=== PATIENT | female | born 1940 | race Caucasian/White ===

== ENCOUNTER → 2017-11-16 08:56 | Outpatient (CLI) | payer MEDICARE, OTHER, SELFPAY ==
[2017-11-16 10:14] LABS: Microalbumin,Random Urine 23.5 mg/L (NO RANGE EST.); Microalbumin:Creatinine Ratio 28.3 mg/g CRE (<30 mg/g CRE)
[2017-11-16 10:25] LABS: Hemoglobin A1c 6.3 % (4.2-6.3)
[2017-11-16 10:31] LABS: AST(SGOT) 13 U/L (15-37); Alanine Aminotransfer ALT/SGPT 19 U/L (13-56); Albumin, Serum 3.5 g/dL (3.2-5.0); Alkaline Phosphatase 82 U/L (45-117); Anion Gap 8 (5-15); BUN 23 mg/dL (7-18); BUN/Creat Ratio 23.4 RATIO (10-20); Bilirubin, Direct < 0.05 mg/dL (0.00-0.30); Calcium,Total 8.8 mg/dL (8.5-10.1); Chloride 108 mmol/L (98-107); Cholesterol 163 mg/dL (200); Creatinine, Serum 0.98 mg/dL (0.55-1.02); EST Glomerular Filtration Rate 59 mL/min (>60); Est Glom Filt Rate - Afr Amer 71 mL/min (>60); Globulin 3.5 g/dL (2.2-4.2); Glucose 114 mg/dL (74-106); High Density Lipoprotein 37 mg/dL; Potassium 4.3 mmol/L (3.5-5.1); Sodium Level 141 mmol/L (136-145); Triglycerides 174 mg/dL; Very Low Density Lipoprotein 35 mg/dL (5-40)
== END ==
PROVIDERS: Family Provider Family Medicine; PCP Family Medicine; Visit Provider Family Medicine
DX: E11.9 Type 2 diabetes mellitus without complications (principal); I10 Essential (primary) hypertension
CPT/HCPCS: 36415; 80048; 80061; 80076; 82043; 82570; 83036

== ENCOUNTER → 2018-03-28 11:50 | Outpatient (CLI) | payer MEDICARE, OTHER, SELFPAY ==
[2018-03-28 14:33] LABS: Anion Gap 6 (5-15); BUN 22 mg/dL (7-18); BUN/Creat Ratio 20.4 RATIO (10-20); Calcium,Total 9.1 mg/dL (8.5-10.1); Chloride 106 mmol/L (98-107); Creatinine, Serum 1.08 mg/dL (0.55-1.02); EST Glomerular Filtration Rate 52 mL/min (>60); Est Glom Filt Rate - Afr Amer 63 mL/min (>60); Glucose 85 mg/dL (74-106); Potassium 4.6 mmol/L (3.5-5.1); Sodium Level 140 mmol/L (136-145)
== END ==
PROVIDERS: Family Provider Family Medicine; PCP Family Medicine; Visit Provider Family Medicine
DX: E11.9 Type 2 diabetes mellitus without complications (principal)
CPT/HCPCS: 36415; 80048

== ENCOUNTER → 2018-03-29 11:28 | Outpatient (CLI) | payer MEDICARE, OTHER, SELFPAY ==
--- NOTE | 2018-03-29 11:35 | BI_ITS ---
MAMMOGRAPHY - BILATERAL SCREENING REASON FOR EXAM: Female, 78 years old. Routine annual screening examination. PERTINENT HISTORY: Non-contributory. TECHNIQUE: Digital bilateral breast ric (3D mammographic acquisition) in the CC and MLO projections. 2-D mediolateral oblique (MLO) and craniocaudad (CC) views of both breasts were obtained. CAD: Full Field Digital Mammography with Computer Added Detection was performed. COMPARISON: Comparison is made with prior examination dated March 27, 2017 and March 24, 2016. FINDINGS: Breast Composition: There are scattered areas of fibroglandular density. There are no dominant masses or suspicious calcifications. Stable benign-appearing bilateral axillary lymph nodes. No other significant abnormalities are identified. There has been no significant change since the prior study. BI/SCREENING MAMM (CAD), BILAT IMPRESSION: Stable bilateral screening mammogram. Yearly follow-up mammogram recommended. (A) ASSESSMENT CATEGORY: BIRADS Category 2: Benign. A letter regarding these results will be sent to the patient by the facility within 30 days. Approximately 10% of breast cancers are not detected by mammography. A normal mammogram should not delay biopsy of a clinically suspicious abnormality. [id number] Electronically Signed: Cortes Crenshaw MD at 13:01 EDT Tel [phone], Service support ,
== END ==
PROVIDERS: Family Provider Family Medicine; PCP Family Medicine; Referring Provider Family Medicine; Visit Provider Family Medicine
DX: Z12.31 Encounter for screening mammogram for malignant neoplasm of breast (principal)
CPT/HCPCS: 77063; 77067

== ENCOUNTER → 2018-11-05 | Outpatient (CLI) | payer MEDICARE, OTHER, SELFPAY ==
[2017-05-09 02:05] VITALS: BMI 34.7
[2018-11-05 15:46] LABS: AST(SGOT) 17 U/L (15-37); Alanine Aminotransfer ALT/SGPT 22 U/L (13-56); Albumin, Serum 4.1 g/dL (3.2-5.0); Alkaline Phosphatase 85 U/L (45-117); Anion Gap 8 (5-15); BUN 24 mg/dL (7-18); Bilirubin, Direct 0.15 mg/dL (0.00-0.30); Calcium,Total 9.1 mg/dL (8.5-10.1); Chloride 105 mmol/L (98-107); Cholesterol 175 mg/dL (200); EST Glomerular Filtration Rate 57 mL/min (>60); Est Glom Filt Rate - Afr Amer 69 mL/min (>60); Globulin 2.8 g/dL (2.2-4.2); Glucose 84 mg/dL (74-106); High Density Lipoprotein 47 mg/dL; Potassium 4.8 mmol/L (3.5-5.1); Protein, Total 6.9 g/dL (6.4-8.2); Sodium Level 141 mmol/L (136-145); Triglycerides 190 mg/dL; Very Low Density Lipoprotein 38 mg/dL (5-40)
== END | disposition home or self-care (01) ==
LOC: MFPLAB 11:26
PROVIDERS: Family Provider Family Medicine; PCP Family Medicine; Referring Provider Family Medicine; Visit Provider Family Medicine
DX: E11.9 Type 2 diabetes mellitus without complications (principal)
CPT/HCPCS: 36415; 80048; 80061; 80076

== ENCOUNTER 2018-12-10 09:08 | Observation (INO) | payer MEDICARE, OTHER, SELFPAY ==
[2018-12-03 14:17] VITALS: PULSE 79; RESP 16; TEMP 36.3; O2SAT 95; BMI 33.6
--- NOTE | 2018-12-03 14:49 | SDCEKG_ITS ---
Test Reason : Blood Pressure : / mmHG Vent. Rate : 072 BPM Atrial Rate : 072 BPM P-R Int : 188 ms QRS Dur : 066 ms QT Int : 376 ms P-R-T Axes : 018 008 041 degrees QTc Int : 411 ms Normal sinus rhythm Normal ECG Confirmed by SHELLEY DHILLON, NICKI ([id number]), assignment desk editor TIA POWELL ([id number]) on 12/07/2018 6:42:08 AM Referred By: Philippe Peterson Confirmed By:NICKI ROSA MD
[2018-12-03 15:25] LABS: Hematocrit 37.1 % (37-47); Hemoglobin 11.8 g/dl (12.0-15.0); Mean Corp Hgb Conc 31.8 g/gl (32-36); Mean Corpuscular Hgb 28.5 pg (27.0-32.0); Mean Corpuscular Volume 89.6 fL (81-99); Mean Platelet Vol. 10.2 fl (6.2-12.0); Platelet Count 205 K/mm3 (150-450); RBC Distribution Width CV 13.6 % (11.6-14.6); RBC Distribution Width SD 44.5 fl (35.1-43.9); Red Blood Count 4.14 M/mm3 (4.2-5.4); White Blood Count 6.4 K/mm3 (4.4-11.0)
[2018-12-03 15:47] LABS: Scan Indicated on CBC? Y/N NO
[2018-12-03 16:46] LABS: BUN 21 mg/dL (7-18); BUN/Creat Ratio 19.1 RATIO (10-20); Calcium,Total 8.5 mg/dL (8.5-10.1); Estimated Creatinine Clearance 34.41 ml/min; Glucose 125 mg/dL (74-106)
[2018-12-03 16:47] LABS: Anion Gap 9 (5-15); Chloride 106 mmol/L (98-107); Potassium 4.2 mmol/L (3.5-5.1); Sodium Level 141 mmol/L (136-145)
--- NOTE | 2018-12-07 13:49 | CASEMGMT ---
Attempted to contact patient regarding discharge needs after upcoming surgery. No answer on cell phone, voicemail left asking for a return phone call. Sadaf Galvan LPN Clinical Support
[2018-12-10] VITALS (13 sets, daily range): BP systolic 118–158; BP diastolic 56–91; PULSE 55–87; RESP 16–20; TEMP 36.1–36.6; O2SAT 92–99; BMI 33.6; BMI 35.2
[2018-12-10] MEDS: Celecoxib 200 MG Capsule 400 MG PO (09:54)
[2018-12-10] MEDS: Acetaminophen 500 MG Tablet 1000 MG PO ×2 (09:54→21:07)
[2018-12-10] MEDS: oxyCODONE HCl Cr 10 MG Tablet PO (09:54)
[2018-12-10] MEDS: Cefazolin 2 GM in 0.9% Normal Saline 100 ML IV (10:32)
--- NOTE | 2018-12-10 11:15 | KNEE_PTH ---
PATIENT: HELADIO POLANCO I LOC: MS3 U#:[id number] AGE/SX: 78/F ROOM: MS307 RE12/10/[address]: Dr. Philippe Peterson DO : 1940 BED: 1 DIS: 12/11/2018 SPEC #: [id number] RECD: 12/10/18 13:41 STATUS: GINA REQ #: [id number] ROHAN: 12/10/18 11:[address]: Philippe Peterson DEPT: SURGICAL PATHOLOGY RECD BY: Jeff Du ENTERED: 12/10/18 13:56 SP TYPE: TOTAL KNEE OTHR DR: Dr. Shaina Bustamante MD Tissues: Knee, NOS Procedures: Decalcification bone/plaque Surgery Specimen Level IV HEADER OPERATION: Total knee replacement, left PRE-OP DIAGNOSIS: Osteoarthritis TISSUE SUBMITTED: Left knee bone and tissue MICROSCOPIC DIAGNOSIS Bone and soft tissue of left knee, total knee resection: Severe degenerative joint disease. Mild synovial hyperplasia. AM:ale 12/13/18 MICROSCOPIC DESCRIPTION Slides are reviewed. GROSS DESCRIPTION Received is one container designated left knee bone and tissue. The specimen consists of multiple fragments of smart-yellow bone measuring in aggregate 15 x 14 x 2.2 cm. Also in the specimen container are multiple fragments of yellow-white soft tissue measuring in aggregate 9 x 8.5 x 1.5 cm. A number of bony fragments contain articular surfaces consistent with tibial plateau and femoral condyle and displaying prominent osteophyte formation, eburnation, and bone erosion. Freezing Machine Operator sections are submitted in two cassettes as follows: 1 - soft tissue, 2 - bone after decalcification. / AM:ale 12/10/18 TC:5 [facility]: [id number], [id number]
--- NOTE | 2018-12-10 12:04 | PCM.OPRPT ---
Report of Operation Date of Procedure: 12/10/18 Pre-Operative Diagnosis: OA bilateral knees Post-Operative Diagnosis: same Surgery/Procedure Performed:: Left TKE and cortisone injection right knee Description of Surgical Findings:: Primary Surgeon/Physician: Philippe Peterson incinerator operator: Barrett Lowery PA-C incinerator operator: Pre-Operative Diagnosis: OA bilateral knees Post-Operative Diagnosis: same Surgery/Procedure Performed: Left TKR, Right knee cortisone injection Estimated Blood Loss: minimal Specimen's Removed: bone Type of Anesthesia: general after failed attempt at spinal ASA Class: 3 Implants: [Man Triathlon size 4 PS femur, size 4 tibia, 9 mm polyethylene, 29 mm patella ] Indications: Patient has severe end-stage osteoarthritis diagnosed via x-rays in the knee. They have failed all forms of conservative measures including activity modification, injections, anti-inflammatories, use of assistive device. The patient has pain that affects on a daily basis and prevents him from doing things that they enjoyed. They have elected to undergo the above procedure. The risks of the procedure were discussed at length and their questions were answered. Procedure Description: The patient was greeted in the preoperative area. The [left ] knee was then marked with a surgical marker. Patient was then taken to or Suite 2. They were administered a dose of antibiotics as well as tranexamic acid. Once adequate anesthesia was obtained and airway was secured to placed in supine position on the operating room table. A well-padded tourniquet was placed on the affected extremity. Leg was then prepped and draped in the usual sterile fashion from the knee down. Ioban was used on the skin. Surgical timeout was then performed and confirmed with all present. Six-inch Esmarch was used to examine the limb and tourniquet was then inflated to 250 mmHg. A longitudinal incision was then planned and carried out in the anterior aspect of the knee. The dissection was then carried the length of the incision the extensor mechanism was identified. Standard medial parapatellar arthrotomy was then performed revealing severe eburnation of bone and periarticular osteophytes. There is complete loss of cartilage especially in the medial compartment with varus alignment. Anterior fat pad was removed for visualization purposes and the anterior medial aspect of the tibia was skeletonized for exposure to the knee. The knee was then flexed the patella was inverted. Opening reamer was then used in the femur approximately 1 cm anterior to the attachment of the PCL. The intramedullary valgus wand was then placed in the femur set at 5? of valgus. The distal femoral cutting jig was then applied to the femur with anticipated resection of approximately 8 mm. This was then made with a oscillating saw. The sizing guide was then placed referencing off the posterior condyles and also reference off the epicondylar axis. This was measured and the appropriate size 4-in-1 cutting jig was then applied to the distal femur. Anterior posterior cuts were made followed by the anterior and posterior chamfer cuts. These bony pieces and fragments were removed and placed on the back table. Posterior retractor was then utilized and the tibia was subluxed anteriorly. Intramedullary tibial alignment jig was then applied to the tibia referencing off the medial one third of the tibial tubercle the anterior tibial spine the middle aspect of the tibiotalar joint. Also reference off patient's [place] slope. The tibial cutting jig was then pinned with anticipated resection of 2 mm off of the deficient medial tibial condyle. This cut was made with the oscillating saw. Once this was complete a laminar safety technician was utilized in both medial lateral meniscus were removed and a posterior capsular osteophytes were also removed. Posterior capsule release was performed in the posterior capsule as well as the geniculate arteries are treated with the aqua Arleth. The tibia was incised and the appropriate sized tibial tray was then pinned. The femoral box cutting jig was then applied to the femur and the box was prepared removing a portion of the intercondylar notch. The femoral trial was then placed and the knee was trialed. Full flexion-extension were easily achieved. The knee seemed to balance quite nicely. Any remaining osteophytes were removed at this time. Once this was complete the patella was everted and the Billie patella reaming device was then utilized the patella was then placed in the appropriate jig and reamer was then used to remove approximately 9 mm of the undersurface of the patella. A soft tissue remaining was in the way was removed and patella trial was then placed listed maintain excellent tracking using the no thumbs technique. The tibial tray at this point was punched to accommodate the fins of the final implant. At this point cement was mixed on the back table. The trial components were removed and the knee was copiously irrigated. Did use a cocktail of injection for postoperative pain control. The final components were then cemented in the standard fashion and excess cement was removed with cement removal tools and patellar clamp is placed in the patella. As the cement had cured in full extension tourniquet was deflated and hemostasis was perfect with Bovie cautery as well as the aqua Manus. Needle is once again trialed with different size polyethylenes to ensure the full range of motion was achieved as well as excellent balancing ligamentously was achieved. At this point the knee was copiously irrigated. Final implant was then inserted locking mechanism was engaged and confirmed to be locked. The arthrotomy was then closed with #1 Vicryl aggravate type fashion interrupted. Subcutaneous tissue was closed with 0 Vicryl and surgical oscar were placed in the skin. A occlusive silver impregnated dressing was then applied followed by well-padded sterile dressing secured with an Dmitri wrap. Under sterile conditions, the right knee was injected with 2 cc of Celestone Soluspan and 4 cc of 1% Lidocaine without epinephrine. The patient was taken to the PACU in stable condition. No complications known at this time. Postoperatively we will maintain standard total knee postoperative protocol. The use of the physician melter assistant was integral during this procedure. They assisted with positioning placement of the tourniquet retracting closure and placement of the dressing. The procedure would have been much more difficult without their expertise and assistance incinerator operator: Barrett Lowery Type of Anesthesia:: General Anesthesiologist: Gurpreet Oscar Specimen's removed: bone - Admit VTE Documentation VTE Present on Admission: No VTE Mechan Device Prophylaxis: SCD's, Thigh High GOLDIE Hose VTE Pharm Prophylaxis ordered?: Yes
--- NOTE | 2018-12-10 12:10 | OP.PCM_ITS ---
Report of Operation Date of Procedure: 12/10/18 Pre-Operative Diagnosis: OA bilateral knees Post-Operative Diagnosis: same Surgery/Procedure Performed:: Left TKE and cortisone injection right knee Description of Surgical Findings:: Primary Surgeon/Physician: Philippe Peterson legal writing professor: Barrett Lowery PA-C legal writing professor: Pre-Operative Diagnosis: OA bilateral knees Post-Operative Diagnosis: same Surgery/Procedure Performed: Left TKR, Right knee cortisone injection Estimated Blood Loss: minimal Specimen's Removed: bone Type of Anesthesia: general after failed attempt at spinal ASA Class: 3 Implants: [Man Triathlon size 4 PS femur, size 4 tibia, 9 mm polyethylene, 29 mm patella ] Indications: Patient has severe end-stage osteoarthritis diagnosed via x-rays in the knee. They have failed all forms of conservative measures including activity modification, injections, anti-inflammatories, use of assistive device. The patient has pain that affects on a daily basis and prevents him from doing things that they enjoyed. They have elected to undergo the above procedure. The risks of the procedure were discussed at length and their questions were answered. Procedure Description: The patient was greeted in the preoperative area. The [left ] knee was then marked with a surgical marker. Patient was then taken to or Suite 2. They were administered a dose of antibiotics as well as tranexamic acid. Once adequate anesthesia was obtained and airway was secured to placed in supine position on the operating room table. A well-padded tourniquet was placed on the affected extremity. Leg was then prepped and draped in the usual sterile fashion from the knee down. Ioban was used on the skin. Surgical timeout was then performed and confirmed with all present. Six-inch Esmarch was used to examine the limb and tourniquet was then inflated to 250 mmHg. A longitudinal incision was then planned and carried out in the anterior aspect of the knee. The dissection was then carried the length of the incision the extensor mechanism was identified. Standard medial parapatellar arthrotomy was then performed revealing severe eburnation of bone and periarticular osteophytes. There is complete loss of cartilage especially in the medial compartment with varus alignment. Anterior fat pad was removed for visualization purposes and the anterior medial aspect of the tibia was skeletonized for exposure to the knee. The knee was then flexed the patella was inverted. Opening reamer was then used in the femur approximately 1 cm anterior to the attachment of the PCL. The intramedullary valgus wand was then placed in the femur set at 5? of valgus. The distal femoral cutting jig was then applied to the femur with anticipated resection of approximately 8 mm. This was then made with a oscillating saw. The sizing guide was then placed referencing off the posterior condyles and also reference off the epicondylar axis. This was measured and the appropriate size 4-in-1 cutting jig was then applied to the distal femur. Anterior posterior cuts were made followed by the anterior and posterior chamfer cuts. These bony pieces and fragments were removed and placed on the back table. Posterior retractor was then utilized and the tibia was subluxed anteriorly. Intramedullary tibial alignment jig was then applied to the tibia referencing off the medial one third of the tibial tubercle the anterior tibial spine the middle aspect of the tibiotalar joint. Also reference off patient's [place] slope. The tibial cutting jig was then pinned with anticipated resection of 2 mm off of the deficient medial tibial condyle. This cut was made with the oscillating saw. Once this was complete a laminar webbing inspector was utilized in both medial lateral meniscus were removed and a posterior capsular osteophytes were also removed. Posterior capsule release was performed in the posterior capsule as well as the geniculate arteries are treated with the aqua Arleth. The tibia was incised and the appropriate sized tibial tray was then pinned. The femoral box cutting jig was then applied to the femur and the box was prepared removing a portion of the intercondylar notch. The femoral trial was then placed and the knee was trialed. Full flexion-extension were easily achieved. The knee seemed to balance quite nicely. Any remaining osteophytes were removed at this time. Once this was complete the patella was everted and the Billie patella reaming device was then utilized the patella was then placed in the appropriate jig and reamer was then used to remove approximately 9 mm of the undersurface of the patella. A soft tissue remaining was in the way was removed and patella trial was then placed listed maintain excellent tracking using the no thumbs technique. The tibial tray at this point was punched to accommodate the fins of the final implant. At this point cement was mixed on the back table. The trial components were removed and the knee was copiously irrigated. Did use a cocktail of injection for postoperative pain control. The final components were then cemented in the standard fashion and excess cement was removed with cement removal tools and patellar clamp is placed in the patella. As the cement had cured in full extension tourniquet was deflated and hemostasis was perfect with Bovie cautery as well as the aqua Manus. Needle is once again trialed with different size polyethylenes to ensure the full range of motion was achieved as well as excellent balancing ligamentously was achieved. At this point the knee was copiously irrigated. Final implant was then inserted locking mechanism was engaged and confirmed to be locked. The arthrotomy was then closed with #1 Vicryl aggravate type fashion interrupted. Subcutaneous tissue was closed with 0 Vicryl and surgical oscar were placed in the skin. A occlusive silver impregnated dressing was then applied followed by well-padded sterile dressing secured with an Dmitri wrap. Under sterile conditions, the right knee was injected with 2 cc of Celestone Soluspan and 4 cc of 1% Lidocaine without epinephrine. The patient was taken to the PACU in stable condition. No complications known at this time. Postoperatively we will maintain standard total knee postoperative protocol. The use of the physician assistant grocery was integral during this procedure. They assisted with positioning placement of the tourniquet retracting closure and placement of the dressing. The procedure would have been much more difficult without their expertise and assistance legal writing professor: Barrett Lowery Type of Anesthesia:: General Anesthesiologist: Gurpreet Oscar Specimen's removed: bone - Admit VTE Documentation VTE Present on Admission: No VTE Mechan Device Prophylaxis: SCD's, Thigh High GOLDIE Hose VTE Pharm Prophylaxis ordered?: Yes
[2018-12-10] MEDS: Betamethasone/Betamethasone 30 MG/5 ML Vial (12:40)
[2018-12-10] MEDS: Lactated Ringers 1,000 ML 999 ML IV (14:10)
[2018-12-10 16:27] LABS: EST Glomerular Filtration Rate 51 mL/min (>60); Est Glom Filt Rate - Afr Amer 62 mL/min (>60)
[2018-12-10] MEDS: Aspirin 325 MG Tablet PO (17:08)
[2018-12-10] MEDS: Lactated Ringers 1,000 ML 125 ML IV (18:55)
[2018-12-10] MEDS: Cefazolin 1 GM/50 ML BAG IV (18:55)
--- NOTE | 2018-12-10 20:04 | NURSING ---
Family member came out to the desk and wanted me to call the doctor or something because she wakes up and goes right back to sleep. I told him pt's vital signs looked fine and that sometimes people take awhile to wake up after surgery. Told him that they had conveyed in report that pt was drowsy. I went back to pt's room and she woke up right away and conversed with me. Pupils are not pinpoint and speech is clear. Pt is only on 1L of oxygen at this time and we have a continuous pulse ox on pt. Reassurances given.
[2018-12-10] MEDS: Senna/Docusate Sodium 1 Tablet 2 TABLET PO (21:10)
[2018-12-11] MEDS: Cefazolin 1 GM/50 ML BAG IV (02:27)
[2018-12-11 02:39] VITALS: BP 158/77; PULSE 87; RESP 20; TEMP 36.6; O2SAT 99
[2018-12-11] MEDS: Lactated Ringers 1,000 ML 125 ML IV (03:56)
[2018-12-11 05:52] LABS: Hematocrit 34.7 % (37-47); Hemoglobin 11.3 g/dl (12.0-15.0); Mean Corp Hgb Conc 32.6 g/gl (32-36); Mean Corpuscular Hgb 28.9 pg (27.0-32.0); Mean Corpuscular Volume 88.7 fL (81-99); Mean Platelet Vol. 10.6 fl (6.2-12.0); Platelet Count 195 K/mm3 (150-450); RBC Distribution Width CV 13.4 % (11.6-14.6); RBC Distribution Width SD 43.4 fl (35.1-43.9); Red Blood Count 3.91 M/mm3 (4.2-5.4); White Blood Count 13.7 K/mm3 (4.4-11.0)
[2018-12-11 06:01] LABS: Anion Gap 11 (5-15); BUN 27 mg/dL (7-18); BUN/Creat Ratio 22.5 RATIO (10-20); Calcium,Total 8.5 mg/dL (8.5-10.1); Chloride 104 mmol/L (98-107); EST Glomerular Filtration Rate 46 mL/min (>60); Est Glom Filt Rate - Afr Amer 56 mL/min (>60); Estimated Creatinine Clearance 32.99 ml/min; Glucose 160 mg/dL (74-106); Scan Indicated on CBC? Y/N NO; Sodium Level 140 mmol/L (136-145)
[2018-12-11] MEDS: Acetaminophen 500 MG Tablet 1000 MG PO ×2 (06:35→13:00)
--- NOTE | 2018-12-11 07:14 | NURSING ---
0650 Patient ambulated from MS307 to therapy room. 1 assist with walker.
[2018-12-11 07:26] VITALS: BP 156/60; PULSE 86; RESP 16; TEMP 36.4; O2SAT 92
[2018-12-11] MEDS: Aspirin 325 MG Tablet PO (07:36)
[2018-12-11] MEDS: Losartan Potassium 100 MG Tablet PO (07:36)
[2018-12-11] MEDS: Pantoprazole Sodium 20 MG Tablet PO (07:36)
[2018-12-11] MEDS: Senna/Docusate Sodium 1 Tablet 2 TABLET PO (07:36)
--- NOTE | 2018-12-11 07:45 | PCM.PN.ORT ---
Subjective: Patient sitting at bedside, eating breakfast. Patient's at her side. Patient denies chest pain, shortness breath, calf pain, nausea vomiting. Patient states pain is well managed. Patient states she is ready for discharge home Objective: Dressing is clean dry intact, negative signs and symptoms of DVT. Vital signs labs within normal limits. Patient is afebrile neurovascular is otherwise intact. Patient is in no respiratory distress, speaking in full sentences. - Physical Exam General: Alert, Oriented x3, Cooperative, No apparent distress HEENT: PERRLA Oral: Moist Mucosa Neurological: Cranial nerves II-XII grossly intact Psych/Mental Status: Normal Affect, Alert and oriented to time, place, person, mood and affect Vital Signs Temp Pulse Resp BP Pulse Ox 97.6 F L 86 16 156/60 H 92 12/11/18 07:26 12/11/18 07:26 12/11/18 07:26 12/11/18 07:26 12/11/18 07:26 Oxygen Flow Rate (L/min) 1 Oxygen Delivery Method Room Air Weight: 90.1 kg Body Mass Index (BMI) 35.2 Intake and Output for Last 24 Hours 12/09/18 12/10/18 12/11/18 23:59 23:59 23:59 Intake Total 3849 / 3849 1080 / 1080 Output Total 300 / 300 850 / 850 Balance 3549 / 3549 230 / 230 Laboratory Tests Past 24 Hrs 12/03/18 12/11/18 12/11/18 14:45 05:32 05:32 WBC 13.7 H RBC 3.91 L Hgb 11.3 L Hct 34.7 L MCV 88.7 MCH 28.9 MCHC 32.6 RDW 13.4 RDW Differential 43.4 Plt Count 195 MPV 10.6 Sodium 140 Potassium 5.0 Chloride 104 Carbon Dioxide 25.0 Anion Gap 11 BUN 27 H Creatinine 1.20 H Estim Creat Clear Calc 32.99 Est GFR (MDRD) Af Amer 62 56 L Est GFR (MDRD) Non-Af 51 L 46 L BUN/Creatinine Ratio 22.5 H Glucose 160 H Calcium 8.5 Medical Necessity - Tobacco Use Smoking Status: Never smoker Tobacco Use: Non-smoker Assessment/Plan All Active Problems Diabetes (Acute) Hypertensive urgency (Acute) Status post left total knee arthroplasty Status post intra-articular injection of the right knee with cortisone Plan 1. Continue all pain medications as prescribed 2. Continue physical therapy, weight-bear as tolerated, with walker. 3. Aspirin 3 and 25 mg 1 p.o. every 12 hours x30 days for postop DVT prophylaxis 4. Encourage incentive spirometry 5. Follow-up as scheduled, see pink sheet 6. Patient will continue physical therapy outpatient at [facility] 7. Discharge home today after p.m. therapy
--- NOTE | 2018-12-11 07:51 | DCINST_ITS ---
Discharge Diet: No Restrictions Discharge Activity: May Not Drive, May Shower, Use Walker May shower in (days): 3 Ice area for (Minutes): 20 - each hour while awake. Weight Bearing Status: Weight bearing as tolerated Elevate: Operative Extremity Additional Activity Instructions:: Wear elastic stockings for 2 weeks after your surgery. Call your doctor if your incision/area has: Continuous Slow Oozing, Sudden Increased Bleeding, Increased Pain/ Swelling, Increased Redness, Foul Smelling Discharge Call your doctor if you observe: Fever of 101 or Higher, Coldness, Increased Pain - in extremity, Numbness or Tingling, Change in Color, Calf discomfort, Uncontrolled pain Change Dressing in (Days):: 0 - and daily as needed. Remove Dressing in (days):: 8 Cleanse incision/area with: Soap & Water Allergies/Adverse Reactions: Allergies No Known Allergies Allergy (Verified 05/08/17 19:55) Medications to take at Discharge Losartan Potassium [Cozaar] 100 mg PO DAILY 12/03/18 Meloxicam [Mobic] 15 mg PO DAILY 12/03/18 Omeprazole 20 mg PO DAILY 12/03/18 Acetaminophen [Tylenol] 1,000 mg PO Q8 #90 tab 12/11/18 Aspirin 325 mg PO BIDCM #60 tab 12/11/18 Oxycodone [Oxyir] 5 - 10 mg PO Q4H PRN PRN 7 Days #90 tab 12/11/18 The following prescriptions were given: Oxycodone [Oxyir] 5 - 10 mg PO Q4H PRN PRN 7 Days #90 tab PRN Reason: Mod-Severe Pain (4-04/11) Acetaminophen [Tylenol] 1,000 mg PO Q8 #90 tab Aspirin 325 mg PO BIDCM #60 tab Primary Care Physician: Shaina Bustamante MD [Primary Care Provider] - Test Results: Test results from this visit will be discussed in further detail at your follow- up appointment, if applicable. Please Follow Up With: Barrett Lowery PA-C When: see pink sheet
--- NOTE | 2018-12-11 11:10 | CASEMGMT ---
RN VALENTIN Face to Face with patient for initial transition planning/care coordination assessment. RN CM introduced self and role at [facility]. Patient lying in bed, alert and oriented, Significant other at bedside. Patient willing to participate in assessment and is able to answer all questions appropriately. Care providers, pharmacy, and demographics verified. Patient wishes to discharge home and has outpatient therapy setup with [facility]. Patient states she has no further needs or concerns at this time. CM to follow for discharge planning needs that may arise. PCP: Robby Specialists: [facility] Preferred Pharmacy: [facility] Insurance: [employer], [employer] Prescription Benefit: Yes Living Will/HPOA: yes, significant other Jimi Bartlett LNOK: brother, significant other Living Arrangements: Patient lives with significant in 1 story home. [facility]: [facility]: Patient has cane, walker, shower chair, and raised toilet seat. Disposition Plan: Patient to discharge home with outpatient therapy, family support, and follow-up plans in place. Mehreen COLLAZO, RN, CM
== END 2018-12-11 13:57 | disposition home or self-care (01) ==
LOC: MS3 15:57 → ACINP 15:57
PROVIDERS: Admitting Provider Orthopaedic Surgery; Family Provider Family Medicine; PCP Family Medicine; Referring Provider Orthopaedic Surgery; Visit Provider Orthopaedic Surgery
PROC: (CPT 27447; principal; 2018-12-10 10:50)
DX: M17.0 Bilateral primary osteoarthritis of knee (principal); E11.9 Type 2 diabetes mellitus without complications; I10 Essential (primary) hypertension; L40.9 Psoriasis, unspecified; E66.9 Obesity, unspecified; Z79.899 Other long term (current) drug therapy; Z68.36 Body mass index [BMI] 36.0-36.9, adult; Z71.3 Dietary counseling and surveillance
CPT/HCPCS: 01400; 20610; 27447; 64447; 36415; 80048; 85027; 87081; 88305; 88311; 93005; 96361; 96365; 96366; 97162; 97166; 97530; 99218; C1776; J7120; G0378; G0379; J0702; J2405

== ENCOUNTER 2018-12-20 23:59 | Emergency (ER) | payer MEDICARE, OTHER, SELFPAY ==
[2018-12-10 14:57] VITALS: BMI 35.2
[2018-12-21] VITALS: BP 216/99; PULSE 89; RESP 18; TEMP 36.7; O2SAT 98; BMI 33.6
[2018-12-21 00:38] VITALS: BP 209/95
--- NOTE | 2018-12-21 00:41 | EKG12_ITS ---
Test Reason : HTN Blood Pressure : / mmHG Vent. Rate : 076 BPM Atrial Rate : 076 BPM P-R Int : 174 ms QRS Dur : 072 ms QT Int : 366 ms P-R-T Axes : 055 -03 044 degrees QTc Int : 411 ms Normal sinus rhythm Normal ECG Confirmed by WILNER DHILLON, CHRISTINE ([id number]), electronic news gathering editor DENY BRITTON ([id number]) on 12/24/2018 11:46:51 AM Referred By: AIDAN Confirmed By:DANNA DARBY MD
[2018-12-21 01:18] LABS: Anion Gap 5 (5-15); BUN 28 mg/dL (7-18); BUN/Creat Ratio 24.8 RATIO (10-20); Calcium,Total 8.8 mg/dL (8.5-10.1); Chloride 106 mmol/L (98-107); Creatinine, Serum 1.13 mg/dL (0.55-1.02); EST Glomerular Filtration Rate 50 mL/min (>60); Est Glom Filt Rate - Afr Amer 60 mL/min (>60); Estimated Creatinine Clearance 35.04 ml/min; Glucose 133 mg/dL (74-106); Potassium 4.2 mmol/L (3.5-5.1); Sodium Level 139 mmol/L (136-145)
--- NOTE | 2018-12-21 01:44 | ED.VISSUMM ---
- ER Visit Summary Date of Service: 12/21/18 Chief Complaint: Elevated blood pressure History of Present Illness: The patient is a 78 F who presents with elevated blood pressure. She states on her last appointment on Monday her blood pressure was about 150 systolic. She checked it at home tonight and was about 170. She checked it a few more times and eventually had a reading of 219/101 so came here for evaluation. She is completely asymptomatic. She denies chest pain shortness of breath headache lightheadedness or dizziness. She does have a history of hypertension and takes losartan. Physical Examination: Blood pressure 216/99 vitals otherwise normal No distress No focal or lateralizing neurological deficits Heart regular rate and rhythm Lungs clear Abdomen soft Test Results: EKG shows sinus rhythm at a rate of 76. BMP shows BUN 28, creatinine 1.13. Emergency Department Course and Treatment: Initially just observe the patient. On recheck her systolic is still 209. Therefore I did obtain renal function to rule out acute kidney injury. She remains asymptomatic. There is no indication for rapid lowering or acute treatment. Patient can follow-up as an outpatient for recheck and adjustment of antihypertensive regimen. She was advised to follow-up with her primary care physician was discharged home. Treatment Plan: [] Disposition: Discharge Impression: A symptomatically hypertension This note was generated with Spiration dictation software. It may contain incorrect words, spelling, and punctuation that were not noted in review of the chart prior to signing ED Disposition - Plan for ED Patient: Referrals: Shaina Bustamante MD [Primary Care Provider] -
--- NOTE | 2018-12-21 01:46 | ED.DEP ---
ED Disposition - Plan for ED Patient: Instructions: HYPERTENSION, Established, Out of Control Referrals: Shaina Bustamante MD [Primary Care Provider] -
[2018-12-21 01:49] VITALS: BP 175/103; PULSE 84; RESP 18; O2SAT 98
== END 2018-12-21 01:50 | disposition home or self-care (01) ==
LOC: ED 12-21 01:10
PROVIDERS: Emergency Provider Emergency Medicine; Family Provider Family Medicine; PCP Family Medicine
DX: I10 Essential (primary) hypertension (principal); Z79.899 Other long term (current) drug therapy
CPT/HCPCS: 80048; 93005; 99282

== ENCOUNTER 2019-03-11 06:38 | Observation (INO) | payer MEDICARE, OTHER, SELFPAY ==
[2019-02-26 10:19] VITALS: BP 154/76; PULSE 77; RESP 18; TEMP 36.6; O2SAT 96; BMI 34.7
[2019-02-26 11:25] LABS: Absolute Lymphocyte Count 2.11 X10^3/uL (0.83-4.51); Absolute Neutrophil Count 3.1 X10^3/uL (2.0-7.7); Basophil# 0.02 X10^3/uL; Basophil% 0.3 % (0-1); Eosinophil# 0.26 X10^3/uL; Eosinophils% 4.3 % (0-5); Hematocrit 35.1 % (37-47); Lymphocyte # 2.11 X10^3/ul (4.0); Lymphocyte % 34.9 % (19-41); Mean Corp Hgb Conc 31.3 g/dL (32-36); Mean Corpuscular Hgb 27.9 pg (27.0-32.0); Mean Corpuscular Volume 89.1 fL (81-99); Mean Platelet Vol. 10.9 fl (6.2-12.0); Monocyte# 0.51 X10^3/uL; Monocyte% 8.4 % (0-10); NRBC Flagged by Analyzer 0 % (0-5); Neutrophil # 3.14 X10^3/uL (2.7-7.7); Neutrophil % 51.9 % (47-70); Platelet Count 201 K/mm3 (150-450); RBC Distribution Width CV 13.6 % (11.6-14.6); RBC Distribution Width SD 44.5 fl (35.1-43.9); Red Blood Count 3.94 M/mm3 (4.2-5.4); White Blood Count 6.1 K/mm3 (4.4-11.0)
[2019-02-26 11:48] LABS: Anion Gap 8 (5-15); BUN 29 mg/dL (7-18); BUN/Creat Ratio 22.8 RATIO (10-20); Calcium,Total 8.6 mg/dL (8.5-10.1); Chloride 109 mmol/L (98-107); Creatinine, Serum 1.27 mg/dL (0.55-1.02); EST Glomerular Filtration Rate 43 mL/min (>60); Est Glom Filt Rate - Afr Amer 53 mL/min (>60); Estimated Creatinine Clearance 31.17 ml/min; Glucose 133 mg/dL (74-106); Potassium 4.6 mmol/L (3.5-5.1); Sodium Level 143 mmol/L (136-145)
--- NOTE | 2019-02-26 14:32 | SDCEKG_ITS ---
Test Reason : Blood Pressure : / mmHG Vent. Rate : 070 BPM Atrial Rate : 070 BPM P-R Int : 182 ms QRS Dur : 066 ms QT Int : 368 ms P-R-T Axes : 032 -05 026 degrees QTc Int : 397 ms Normal sinus rhythm Minimal voltage criteria for LVH, may be normal variant Inferior infarct , age undetermined Cannot rule out Anterior infarct , age undetermined Abnormal ECG Confirmed by FABIENNE MINOR ([id number]), online editor TIA POWELL ([id number]) on 03/06/2019 8:22:21 AM Referred By: Philippe Peterson Confirmed By:FABIENNE MINOR
[2019-03-11] VITALS (16 sets, daily range): BP systolic 127–156; BP diastolic 51–72; PULSE 73–84; RESP 12–20; TEMP 35.8–36.7; O2SAT 92–100; BMI 34.7
[2019-03-11] MEDS: Acetaminophen 500 MG Tablet 1000 MG PO ×3 (07:23→21:41)
[2019-03-11] MEDS: Magnesium Sulfate 4gm/100mL 4 GM/100 ML IV.SOLN. IV (07:24)
[2019-03-11] MEDS: Gabapentin 600 MG Tablet PO (07:24)
[2019-03-11] MEDS: Lactated Ringers 1,000 ML 100 ML IV (07:40)
[2019-03-11 07:46] LABS: Bedside Glucose 126 mg/dL (70-110)
[2019-03-11] MEDS: Cefazolin 2 GM in 0.9% Normal Saline 100 ML IV (08:56)
--- NOTE | 2019-03-11 09:00 | KNEE_PTH ---
PATIENT: HELADIO POLANCO I LOC: MS3 U#:[id number] AGE/SX: 78/F ROOM: [facility] [place] RE03/11/[address]: Dr. Philippe Peterson DO : 1940 BED: 1 DIS: 03/12/2019 SPEC #: [id number] RECD: 03/11/19 11:16 STATUS: GINA BI #: [id number] ROHAN: 03/11/19 09:[address]: Philippe Peterson DEPT: SURGICAL PATHOLOGY RECD BY: Osito De Souza ENTERED: 03/11/19 11:43 SP TYPE: TOTAL KNEE OTHR DR: Dr. Shaina Bustamante MD Tissues: Knee, NOS Procedures: Decalcification bone/plaque Surgery Specimen Level IV HEADER OPERATION: ERAS, total knee replacement PRE-OP DIAGNOSIS: Unilateral primary osteoarthritis, right knee TISSUE SUBMITTED: Bone and soft tissue, right knee MICROSCOPIC DIAGNOSIS Bone and soft tissue, right knee, total knee replacement/resection: Pieces of bone with degenerative osteoarthritic changes. Fibroadipose tissue, fibroconnective tissue and reactive synovial tissue. MITZY:ale 03/14/19 MICROSCOPIC DESCRIPTION Slides are reviewed. GROSS DESCRIPTION Received is one container designated bone and soft tissue right knee. The specimen consists of multiple fragments of smart-yellow bone measuring in aggregate 11 x 9 x 3.5 cm. Also in the specimen container are multiple fragments of yellow-white soft tissue measuring in aggregate 8 x 8 x 3 cm. A number of bony fragments contain articular surfaces consistent with tibial plateau and femoral condyle and displaying prominent osteophyte formation, eburnation, and bone erosion. Eligibility Specialist sections are submitted in two cassettes as follows: 1 - soft tissue, 2 - bone after decalcification. / MITZY:ale 03/11/19 :5 [facility]: [id number], [id number]
--- NOTE | 2019-03-11 10:46 | OP.PCM_ITS ---
Report of Operation Date of Procedure: 03/11/19 Pre-Operative Diagnosis: OA right knee Post-Operative Diagnosis: same Surgery/Procedure Performed:: Right TKR Description of Surgical Findings:: Primary Surgeon/Physician: Philippe Peterson missionary coordinator: Brenna Hung PA-C missionary coordinator: Pre-Operative Diagnosis: OA right knee Post-Operative Diagnosis: same Surgery/Procedure Performed: Right TKR Estimated Blood Loss: minimal Specimen's Removed: bone Type of Anesthesia: general ASA Class: 3 Implants: [Man Triathlon size 3 PS femur, 9 mm poly, size 3 tibia, 32 mm patella (all components cemented) ] Indications: Patient has severe end-stage osteoarthritis diagnosed via x-rays in the knee. They have failed all forms of conservative measures including activity modification, injections, anti-inflammatories, use of assistive device. The patient has pain that affects on a daily basis and prevents him from doing things that they enjoyed. They have elected to undergo the above procedure. The risks of the procedure were discussed at length and their questions were answered. Procedure Description: The patient was greeted in the preoperative area. The [right ] knee was then marked with a surgical marker. Patient was then taken to or [address]. They were administered a dose of antibiotics as well as tranexamic acid. Once adequate anesthesia was obtained and airway was secured to placed in supine position on the operating room table. A well-padded tourniquet was placed on the affected extremity. Leg was then prepped and draped in the usual sterile fashion from the knee down. Ioban was used on the skin. Surgical timeout was then performed and confirmed with all present. Six-inch Esmarch was used to examine the limb and tourniquet was then inflated to 250 mmHg. A longitudinal incision was then planned and carried out in the anterior aspect of the knee. The dissection was then carried the length of the incision the extensor mechanism was identified. Standard medial parapatellar arthrotomy was then performed revealing severe eburnation of bone and periarticular osteophytes. There is complete loss of cartilage especially in the medial compartment with varus alignment. Anterior fat pad was removed for visualization purposes and the anterior medial aspect of the tibia was skelet onized for exposure to the knee. The knee was then flexed the patella was inverted. Opening reamer was then used in the femur approximately 1 cm anterior to the attachment of the PCL. The intramedullary valgus wand was then placed in the femur set at 5? of valgus. The distal femoral cutting jig was then applied to the femur with anticipated resection of approximately 8 mm. This was then made with a oscillating saw. The sizing guide was then placed referencing off the posterior condyles and also reference off the epicondylar axis. This was measured and the appropriate size 4-in-1 cutting jig was then applied to the distal femur. Anterior posterior cuts were made followed by the anterior and posterior chamfer cuts. These bony pieces and fragments were removed and placed on the back table. Posterior retractor was then utilized and the tibia was subluxed anteriorly. Extramedullary tibial alignment jig was then applied to the tibia referencing off the medial one third of the tibial tubercle the anterior tibial spine the middle aspect of the tibiotalar joint. Also reference off patient's [place] and [place] slope. The tibial cutting jig was then pinned with anticipated resection of 2 mm off of the deficient medial tibial condyle. This cut was made with the oscillating saw. Once this was complete a laminar clinical mental health counselor was utilized in both medial lateral meniscus were removed and a post erior capsular osteophytes were also removed. Posterior capsule release was performed in the posterior capsule as well as the geniculate arteries are treated with the aqua Arleth. The tibia was incised and the appropriate sized tibial tray was then pinned. The femoral box cutting jig was then applied to the femur and the box was prepared removing a portion of the intercondylar notch. The femoral trial was then placed and the knee was trialed. Full flexion-extension were easily achieved. The knee seemed to balance quite nicely. Any remaining osteophytes were removed at this time. Once this was complete the patella was everted and the Billie patella reaming device was then utilized the patella was then placed in the appropriate jig and reamer was then used to remove approximately 9 mm of the undersurface of the patella. A soft tissue remaining was in the way was removed and patella trial was then placed listed maintain excellent tracking using the no thumbs technique. The tibial tray at this point was punched to accommodate the fins of the final implant. At this point cement was mixed on the back table. The trial components were removed and the knee was copiously irrigated. Did use a cocktail of injection for postoperative pain control. The final components were then cemented in the standard fashion and excess cement was removed with cement removal tools and patellar clamp is placed in the patella. As the cement had cured in full extension tourniquet was deflated and hemostasis was perfect with Bovie cautery as well as the aqua Manus. Needle is once again trialed with different size polyethylenes to ensure the full range of motion was achieved as well as excellent balancing ligamentously was achieved. At this point the knee was copiously irrigated. Final implant was then inserted locking mechanism was engaged and confirmed to be locked. The arthrotomy was then closed with #1 Vicryl aggravate type fashion interrupted. Subcutaneous tissue was closed with 0 Vicryl and surgical oscar were placed in the skin. A occlusive silver impregnated dressing was then applied followed by well-padded sterile dressing secured with an Dmitri wrap. The patient was taken to the PACU in stable condition. No complications known at this time. Postoperatively we will maintain standard total knee postoperative protocol. The use of the physician cook's assistant was integral during this procedure. They assisted with positioning placement of the tourniquet retracting closure and placement of the dressing. The procedure would have been much more difficult without their expertise and assistance missionary coordinator: Brenna Hung Type of Anesthesia:: General Anesthesiologist: Claudy Nichols Specimen's removed: bone - Admit VTE Documentation VTE Present on Admission: No VTE Mechan Device Prophylaxis: SCD's, Thigh High GOLDIE Hose VTE Pharm Prophylaxis ordered?: Yes
[2019-03-11] MEDS: Lactated Ringers 1,000 ML 999 ML IV (11:50)
[2019-03-11] MEDS: Lactated Ringers 1,000 ML 125 ML IV ×2 (13:05→21:39)
--- NOTE | 2019-03-11 13:19 | NURSING ---
Simple mask removed, nc o2 applied at 2 L, Pox is 94%.
[2019-03-11] MEDS: Aspirin 325 MG Tablet PO ×2 (14:23→21:42)
[2019-03-11] MEDS: Pantoprazole Sodium 20 MG Tablet PO (14:24)
[2019-03-11] MEDS: hydroCHLOROthiazide 25 MG Tablet PO (14:25)
--- NOTE | 2019-03-11 16:36 | NURSING ---
Assisted pt to bsc, did well with following commands, able use the incentive spirometer and got it up to 1400. Assisted back to bed. Spouse at bedside.
[2019-03-11] MEDS: Cefazolin 1 GM/50 ML BAG IV (16:45)
[2019-03-11] MEDS: Ondansetron 4 MG/2 ML Vial IV (16:45)
[2019-03-11] MEDS: Senna/Docusate Sodium 1 Tablet 2 TABLET PO (21:42)
[2019-03-12] MEDS: Cefazolin 1 GM/50 ML BAG IV (01:05)
[2019-03-12 04:11] VITALS: BP 115/88; PULSE 71; RESP 18; TEMP 36.2; O2SAT 97
[2019-03-12] MEDS: Acetaminophen 500 MG Tablet 1000 MG PO (05:15)
[2019-03-12 05:39] LABS: Hematocrit 29.3 % (37-47); Hemoglobin 9.3 g/dL (12.0-15.0); Mean Corp Hgb Conc 31.7 g/dL (32-36); Mean Corpuscular Hgb 28.4 pg (27.0-32.0); Mean Corpuscular Volume 89.6 fL (81-99); Mean Platelet Vol. 10.6 fl (6.2-12.0); Platelet Count 178 K/mm3 (150-450); RBC Distribution Width CV 13.9 % (11.6-14.6); RBC Distribution Width SD 46.1 fl (35.1-43.9); Red Blood Count 3.27 M/mm3 (4.2-5.4); White Blood Count 7.3 K/mm3 (4.4-11.0)
[2019-03-12] MEDS: 0.9% NaCl Peripheral Flush Adult/Peds IV (05:54)
[2019-03-12 05:55] VITALS: O2SAT 97
[2019-03-12 06:07] LABS: Anion Gap 5 (5-15); BUN 29 mg/dL (7-18); BUN/Creat Ratio 22.3 RATIO (10-20); Chloride 107 mmol/L (98-107); EST Glomerular Filtration Rate 42 mL/min (>60); Est Glom Filt Rate - Afr Amer 51 mL/min (>60); Estimated Creatinine Clearance 30.45 ml/min; Glucose 100 mg/dL (74-106); Potassium 4.9 mmol/L (3.5-5.1); Sodium Level 140 mmol/L (136-145)
[2019-03-12 07:43] VITALS: BP 137/56; PULSE 77; RESP 18; TEMP 37.1; O2SAT 98
[2019-03-12] MEDS: Pantoprazole Sodium 20 MG Tablet PO (07:44)
[2019-03-12] MEDS: Aspirin 325 MG Tablet PO (07:44)
[2019-03-12] MEDS: Losartan Potassium 100 MG Tablet PO (07:45)
[2019-03-12] MEDS: Senna/Docusate Sodium 1 Tablet 2 TABLET PO (07:45)
[2019-03-12] MEDS: hydroCHLOROthiazide 25 MG Tablet PO (07:45)
--- NOTE | 2019-03-12 07:51 | PCM.PN.ORT ---
Subjective: Doing well. Minimal pain. Patient up and eating breakfast. - Physical Exam General: Alert, Oriented x3, No apparent distress Extremities: No clubbing, No cyanosis, No edema, Capillary Refill Less than 3 Seconds, No Calf Tenderness Skin: Incision - Well approximated Vital Signs Temp Pulse Resp BP Pulse Ox 98.7 F 77 18 137/56 H 98 03/12/19 07:43 03/12/19 07:43 03/12/19 07:43 03/12/19 07:43 03/12/19 07:43 Oxygen Flow Rate (L/min) 2 Oxygen Delivery Method Room Air Weight: 196 lb 3.382 oz Body Mass Index (BMI) 34.7 Intake and Output for Last 24 Hours 03/10/19 03/11/19 03/12/19 23:59 23:59 23:59 Intake Total 3988.33 / 3988.33 989.58 / 989.58 Output Total 750 / 750 Balance 3238.33 / 3238.33 989.58 / 989.58 Laboratory Tests Past 24 Hrs 03/12/19 03/12/19 05:04 05:04 WBC 7.3 RBC 3.27 L Hgb 9.3 L Hct 29.3 L MCV 89.6 MCH 28.4 MCHC 31.7 L RDW Std Deviation 46.1 H RDW Coeff of Ignacio 13.9 Plt Count 178 MPV 10.6 Sodium 140 Potassium 4.9 Chloride 107 Carbon Dioxide 28.0 Anion Gap 5 BUN 29 H Creatinine 1.30 H Estim Creat Clear Calc 30.45 Est GFR (MDRD) Af Amer 51 L Est GFR (MDRD) Non-Af 42 L BUN/Creatinine Ratio 22.3 H Glucose 100 Calcium 8.0 L Medical Necessity - Tobacco Use Smoking Status: Never smoker Assessment/Plan All Active Problems Diabetes (Acute) Hypertensive urgency (Acute) s/p Right TKR PT today then home this afternoon. Patient refuses pain meds. Still has Rx from last knee 3 months ago and only used one then.
--- NOTE | 2019-03-12 08:12 | DCINST_ITS ---
Discharge Diet: No Restrictions Discharge Activity: May Not Drive May shower in (days): 1 Ice area for (Minutes): 20 Weight Bearing Status: Weight bearing as tolerated Elevate: Operative Extremity Additional Activity Instructions:: Wear elastic stockings for 2 weeks after your surgery. Call your doctor if your incision/area has: Continuous Slow Oozing, Sudden Increased Bleeding, Increased Pain/ Swelling, Increased Redness, Foul Smelling Discharge Call your doctor if you observe: Fever of 101 or Higher, Coldness, Increased Pain - in extremity, Numbness or Tingling, Change in Color, Calf discomfort, Uncontrolled pain Change Dressing in (Days):: 1 - and daily as needed. Cleanse incision/area with: Soap & Water Allergies/Adverse Reactions: Allergies No Known Allergies Allergy (Verified 03/11/19 07:04) Medications to take at Discharge Losartan Potassium [Cozaar] 100 mg PO DAILY 12/03/18 Omeprazole 20 mg PO DAILY 12/03/18 Hydrochlorothiazide [Hctz] 25 mg PO DAILY 02/26/19 Acetaminophen [Tylenol] 1,000 mg PO Q8 tablet 03/12/19 Aspirin 325 mg PO BIDCM tablet 03/12/19 Primary Care Physician: Shaina Bustamante MD [Primary Care Provider] - Test Results: Test results from this visit will be discussed in further detail at your follow- up appointment, if applicable.
--- NOTE | 2019-03-12 11:50 | CASEMGMT ---
Addendum entered by Selena Higgins 03/12/19 14:19: Specialist: Dr Peterson Preferred Pharmacy: [facility]. Original Note: RN CM REVERBERATORY SKIMMER CM to room to meet with patient for initial transition planning/care coordination assessment. RAINE HANSON introduced self and role at [facility]. Pt voices understanding and consents to assessment at this time. Pt resting in bed at this time and sleeping on/off during assessment. Significant Other. Jimi/POA @ bedside and answered most of the following questions. Pt would awaken at times and answer some questions as well but then would fall back asleep. Care providers, pharmacy, and demographics verified/updated at this time. PCP: [facility] Specialists: Preferred Pharmacy: Insurance: MCR, [employer] Prescription Benefit: [employer] Living Will/HPOA: Has both LW and HCPOA, who is her significant other, Jimi Bartlett. LNOK: Brother Bharath Living Arrangements: Lives with her significant other, Jimi in one-story home. 2-3 steps to enter. Independent prior to surgery Transportation: [facility] will drive pt home @ d/c. DME: [facility] has the following DME: tub bench, raised toilet seat, cane, walker, linen room attendant Denies need for further DME at this time. HHC/SNF: No history of either and denies needs. Pt wishes to return home with OP therapy @ [facility] and states has no concerns with going home at time of discharge. They stated they were not sure if follow-up appt @ [facility] and 1st appt for PT have been made yet. RAINE HANSON placed call to [facility] and all scheduled appts documented in pt's chart under D/C follow up appts. List of all appts printed off and given to pt and [facility]. CM to follow for any discharge planning/needs. Pt and Jimi voice no further concerns/needs at this time. Advised them to ask for CM if any further questions/concerns/needs arise. They voice understanding. PLAN: Home w/OP therapy @ [facility]. Danisha COLLAZO RN, CM
== END 2019-03-12 13:15 | disposition home or self-care (01) ==
LOC: ACINP 13:39 → MS3 13:40
PROVIDERS: Admitting Provider Orthopaedic Surgery; Family Provider Family Medicine; PCP Family Medicine; Referring Provider Orthopaedic Surgery; Visit Provider Orthopaedic Surgery
PROC: (CPT 27447; principal; 2019-03-11 08:35)
DX: M17.11 Unilateral primary osteoarthritis, right knee (principal); I16.0 Hypertensive urgency; E11.9 Type 2 diabetes mellitus without complications; Z79.899 Other long term (current) drug therapy; Z79.82 Long term (current) use of aspirin; L40.9 Psoriasis, unspecified
CPT/HCPCS: 01400; 27447; 64447; 36415; 80048; 82962; 85025; 85027; 87081; 88305; 88311; 93005; 94762; 96361; 96365; 96366; 96375; 97162; 97166; 97530; 99218; C1776; J7120; A4216; G0378; G0379; J2405

== ENCOUNTER → 2019-04-01 | Outpatient (CLI) | payer MEDICARE, OTHER, SELFPAY ==
[2019-02-26 10:19] VITALS: BMI 34.7
[2019-03-11 12:52] VITALS: BMI 34.7
--- NOTE | 2019-04-01 12:42 | BI_ITS ---
MAMMOGRAPHY - BILATERAL SCREENING REASON FOR EXAM: Female, 79 years old. Routine annual screening examination. PERTINENT HISTORY: Non-contributory. TECHNIQUE: Digital bilateral breast manisha (3D mammographic acquisition) in the CC and MLO projections. 2-D mediolateral oblique (MLO) and craniocaudad (CC) views of both breasts were obtained. CAD: Full Field Digital Mammography with Computer Added Detection was performed. COMPARISON: Comparison is made with prior study March 29, 2018 and March 27, 2017. FINDINGS: Breast Composition: There are scattered areas of fibroglandular density. There are no dominant masses or suspicious calcifications. Stable appearance of the benign appearing bilateral axillary lymph nodes. No other significant abnormalities are identified. There has been no significant change since the prior study. BI/SCREEN MAMM (CAD) W/MANISHA BILAT IMPRESSION: Stable bilateral screening mammogram. Yearly follow-up mammogram recommended. (A) ASSESSMENT CATEGORY: BIRADS Category 2: Benign. A letter regarding these results will be sent to the patient by the facility within 30 days. Approximately 10% of breast cancers are not detected by mammography. A normal mammogram should not delay biopsy of a clinically suspicious abnormality. [id number] Electronically Signed: Cortes Crenshaw, at 14:01 EDT , Service support ,
== END | disposition home or self-care (01) ==
LOC: OPBI 12:40
PROVIDERS: Family Provider Family Medicine; PCP Family Medicine; Referring Provider Family Medicine; Visit Provider Family Medicine
DX: Z12.31 Encounter for screening mammogram for malignant neoplasm of breast (principal)
CPT/HCPCS: 77063; 77067

== ENCOUNTER → 2019-04-09 | Outpatient (CLI) | payer MEDICARE, OTHER, SELFPAY ==
[2019-03-11 12:52] VITALS: BMI 34.7
[2019-04-09 18:00] LABS: Hemoglobin A1c 5.9 % (4.2-6.3)
[2019-04-09 18:04] LABS: Microalbumin,Random Urine < 5.0 mg/L (NO RANGE EST.)
[2019-04-09 18:05] LABS: AST(SGOT) 19 U/L (15-37); Alanine Aminotransfer ALT/SGPT 21 U/L (13-56); Albumin, Serum 3.9 g/dL (3.2-5.0); Alkaline Phosphatase 131 U/L (45-117); Cholesterol 175 mg/dL (200); Globulin 3.7 g/dL (2.2-4.2); High Density Lipoprotein 42 mg/dL; Protein, Total 7.6 g/dL (6.4-8.2); Triglycerides 216 mg/dL; Very Low Density Lipoprotein 43 mg/dL (5-40)
== END | disposition home or self-care (01) ==
LOC: MFPLAB 14:36
PROVIDERS: Family Provider Family Medicine; PCP Family Medicine; Visit Provider Family Medicine
DX: E11.9 Type 2 diabetes mellitus without complications (principal)
CPT/HCPCS: 36415; 80061; 80076; 82043; 82570; 83036

== ENCOUNTER → 2019-10-08 12:59 | Outpatient (CLI) | payer MEDICARE, OTHER, SELFPAY ==
[2019-03-11 12:52] VITALS: BMI 34.7
[2019-10-08 15:06] LABS: Absolute Lymphocyte Count 1.77 X10^3/uL (0.83-4.51); Absolute Neutrophil Count 3.5 X10^3/uL (2.0-7.7); Basophil# 0.03 X10^3/uL; Basophil% 0.5 % (0-1); Eosinophil# 0.16 X10^3/uL; Eosinophils% 2.6 % (0-5); Hematocrit 37.8 % (37-47); Hemoglobin 12.1 g/dL (12.0-15.0); Lymphocyte # 1.77 X10^3/ul (4.0); Lymphocyte % 28.5 % (19-41); Mean Corpuscular Hgb 27.8 pg (27.0-32.0); Mean Corpuscular Volume 86.9 fL (81-99); Monocyte# 0.69 X10^3/uL; Monocyte% 11.1 % (0-10); NRBC Flagged by Analyzer 0 % (0-5); Neutrophil # 3.54 X10^3/uL (2.7-7.7); Neutrophil % 57.1 % (47-70); Platelet Count 233 K/mm3 (150-450); RBC Distribution Width CV 13.9 % (11.6-14.6); RBC Distribution Width SD 44.3 fl (35.1-43.9); Red Blood Count 4.35 M/mm3 (4.2-5.4); White Blood Count 6.2 K/mm3 (4.4-11.0)
[2019-10-08 15:18] LABS: T3 Total - Triiodothyronine 1.55 ng/mL (0.6-1.81)
[2019-10-08 16:42] LABS: ALB/GLOB Ratio 1.2 RATIO (0.9-2.4); AST(SGOT) 17 U/L (15-37); Alanine Aminotransfer ALT/SGPT 21 U/L (13-56); Albumin, Serum 3.9 g/dL (3.2-5.0); Alkaline Phosphatase 91 U/L (45-117); Anion Gap 7 (5-15); BUN 28 mg/dL (7-18); BUN/Creat Ratio 21.9 RATIO (10-20); Calcium,Total 9.5 mg/dL (8.5-10.1); Chloride 106 mmol/L (98-107); Creatinine, Serum 1.28 mg/dL (0.55-1.02); EST Glomerular Filtration Rate 43 mL/min (>60); Est Glom Filt Rate - Afr Amer 52 mL/min (>60); Ferritin 90 ng/mL (8-252); Globulin 3.2 g/dL (2.2-4.2); Glucose 135 mg/dL (74-106); Potassium 4.4 mmol/L (3.5-5.1); Protein, Total 7.1 g/dL (6.4-8.2); Sodium Level 139 mmol/L (136-145); T4 Free Direct 1.18 ng/dL (0.76-1.46); Thyroid Stim Hormone (TSH) 2.41 uIU/mL (0.358-3.74)
[2019-10-10 08:04] LABS: Thyroid Peroxidase AB 33 IU/mL (0-34)
[2019-10-12 14:46] LABS: Anti-Nuclear Antibody Test Negative (.)
== END ==
PROVIDERS: PCP Family Medicine; Referring Provider Dermatology Pediatric Dermatology; Visit Provider Dermatology Pediatric Dermatology
DX: L65.0 Telogen effluvium (principal); L40.8 Other psoriasis
CPT/HCPCS: 36415; 80053; 82728; 84439; 84443; 84480; 85025; 86038; 86376

== ENCOUNTER 2020-01-25 02:52 | Emergency (ER) | payer MEDICARE, OTHER, SELFPAY ==
[2019-03-11 12:52] VITALS: BMI 34.7
[2020-01-25 02:54] VITALS: BP 147/65; PULSE 114; RESP 18; TEMP 36.6; O2SAT 90; BMI 38.2
--- NOTE | 2020-01-25 03:10 | CT_ITS ---
STUDY: CTA CHEST REASON FOR EXAM: Female, 79 years old. BACK PAIN WITH PAINFUL INSPIRATION SINCE SHOVELING GRAVEL ON MONDAY,ELEVATED WBC -- HX:HTN,GERD,HLD RADIATION DOSAGE (If Supplied By Facility): CTDIvol = ( 9.15 ) mGy, DLP = ( 430.60 ) mGycm TECHNIQUE: The examination was performed with the intravenous administration of IV 100mL Isovue-370. Post-processing of the angiographic images was performed, with multiplanar reformation and 3D reconstruction. Individualized dose optimization techniques were used for this CT. COMPARISON: None. FINDINGS: Normal enhancement of the main pulmonary artery and right and left pulmonary arteries. Normal enhancement of the bilateral peripheral pulmonary arteries. There is no demonstrated pulmonary embolism. Normal thoracic aorta and visualized great vessels. There is no demonstrated aortic dissection. Normal heart and pericardium. Normal mediastinum. Normal hilar regions. There is suboptimal inspiration. There are fibrotic changes at the lung bases. There are NO acute infiltrates. There is NO pleural effusion or pneumothorax. Normal chest wall structures. Normal osseous structures. Normal visualized upper abdomen. CT/CTA Chest W/WO Contrast IMPRESSION: There is no demonstrated pulmonary embolism. Normal thoracic aorta and visualized great vessels. There is no demonstrated aortic dissection. Normal heart and pericardium. There is suboptimal inspiration. There are fibrotic changes at the lung bases. There are NO acute infiltrates. There is NO pleural effusion or pneumothorax. Electronically Signed: Félix Islas MD at 5:18 EDT , Service support ,
--- NOTE | 2020-01-25 03:10 | EKG12_ITS ---
Test Reason : SHOULDER PAIN Blood Pressure : / mmHG Vent. Rate : 111 BPM Atrial Rate : 111 BPM P-R Int : 156 ms QRS Dur : 068 ms QT Int : 304 ms P-R-T Axes : 039 -16 018 degrees QTc Int : 413 ms Sinus tachycardia Minimal voltage criteria for LVH, may be normal variant Inferior infarct , age undetermined Anterolateral infarct , age undetermined Abnormal ECG Confirmed by FRANKC GUTIÉRREZ MD ([id number]), department editor TIA POWELL ([id number]) on 01/27/2020 1:10:46 PM Referred By: LILO Confirmed By:FRANCK GUTIÉRREZ MD
--- NOTE | 2020-01-25 03:12 | ED.DCSUM_ITS ---
History of Present Illness Chief Complaint: Back Narrative: Presents with back pain that started about 30 hours after shoveling some gravel, however this pain in the back goes through to almost her chest region, she feels the pain more when she moves twists or lays down. She has no weakness in her arms or legs she has no actual chest pain but she does feel the back pain radiating into her thorax. She has no abdominal pain she has no nausea or vomiting she has no fever or chills. She denies any cough or congestion. Past Medical History - Allergies and Home Meds Allergies/Adverse Reactions: Allergies No Known Allergies Allergy (Verified 01/25/20 03:00) Primary Care Physician: Shaina Bustamante MD [Primary Care Provider] - Past Medical History: - - Hypertension, hypercholesterolemia Smoking Status: Never smoker - Family History Maternal Family History: Reports: No pertinent history Review of Systems All systems negative except as indicated General: Denies: Fever Eyes: Denies: Visual changes - bilaterally Cardiovascular: Denies: Chest pain, Heart racing Respiratory: Denies: Dyspnea, Cough Gastrointestinal: Denies: Abdominal pain, Nausea Genitourinary: Denies: Dysuria Musculoskeletal: Reports: Back pain. Denies: Myalgias, Neck pain, Swelling, Extremity Pain Skin: Denies: Rash Neurological: Denies: Headache, Weakness Hematologic: Denies: Easy bruising Physical Exam Vital Signs/Narrative: Vital Signs Temp Pulse Resp BP Pulse Ox 01/25/20 02:54 97.8 F 114 H 18 147/65 H 90 General: - - Patient appears her stated age. She does appear in some distress Head: Normocephalic, Atraumatic ENT: Moist mucous membranes Neck: Supple, Nontender Cardiovascular: Regular rate, Regular rhythm Respiratory: - - Speaking in full sentences she has coarse breath sound with some end expiratory wheezing. Abdomen: Soft, Nontender, Nondistended Back: - - There is tenderness in the spinal and paraspinal regions of her thoracic region however it is diffuse there is no specific pain over any specific vertebra. The pain is reproducible. Extremities: Nontender, No edema Skin: Normal color, No rash Neurological: Alert, Normal Strength, Normal Sensation Psychological: Normal affect Diagnostic/Tx/Re-eval - Rhythm Strip Rhythm Strip: Sinus Rhythm Rate: 111 Ectopy: None - EKG Initial EKG Interpretation: - - Sinus tachycardia with a rate of 111. Normal SC and QTc intervals. Chronic infero-and anterolateral changes are present otherwise normal EKG Interpreted by emergency doctor - Medical Decision Making Patient has a normal CT angiogram of the chest. She has a normal laboratory work-up and normal cardiac work-up. She has reproducible back pain I believe this is all secondary to overuse however because of her age I did want to do a full work-up to be cautious. I discussed at length with her and her that if she worsens she is to return at this time she thinks she can go back home, I did suggest that if she cannot cope at home we may be able to get her into a rehab facility at this time they do not want this. She has oxycodones at home and I will add muscle relaxants. ED Disposition - Plan for ED Patient: Disposition: Home or Assisted Living Instructions: ED Neck Back Pain General Prescriptions: Tizanidine HCl 4 mg PO BID #16 tab Transmission Status: Pending to [facility] Referrals: Shaina Bustamante MD [Primary Care Provider] - 3-5 Days
[2020-01-25] MEDS: HYDROmorphone 1 MG/ML Syringe 0.5 MG IV (03:38)
[2020-01-25] MEDS: Ondansetron 4 MG/2 ML Vial IV (03:38)
[2020-01-25 03:51] LABS: Absolute Lymphocyte Count 0.73 X10^3/uL (0.83-4.51); Absolute Neutrophil Count 11.2 X10^3/uL (2.0-7.7); Basophil# 0.02 X10^3/uL; Basophil% 0.2 % (0-1); Eosinophil# 0.01 X10^3/uL; Eosinophils% 0.1 % (0-5); Hematocrit 34.2 % (37-47); Hemoglobin 10.8 g/dL (12.0-15.0); Lymphocyte # 0.73 X10^3/ul (4.0); Lymphocyte % 5.6 % (19-41); Mean Corp Hgb Conc 31.6 g/dL (32-36); Mean Corpuscular Hgb 28.1 pg (27.0-32.0); Mean Corpuscular Volume 89.1 fL (81-99); Mean Platelet Vol. 10.6 fl (6.2-12.0); Monocyte# 0.88 X10^3/uL; Monocyte% 6.8 % (0-10); NRBC Flagged by Analyzer 0 % (0-5); Neutrophil # 11.23 X10^3/uL (2.7-7.7); Neutrophil % 86.8 % (47-70); Platelet Count 196 K/mm3 (150-450); RBC Distribution Width SD 45.1 fl (35.1-43.9); Red Blood Count 3.84 M/mm3 (4.2-5.4); White Blood Count 12.9 K/mm3 (4.4-11.0)
[2020-01-25 04:15] LABS: AST(SGOT) 19 U/L (15-37); Alanine Aminotransfer ALT/SGPT 27 U/L (13-56); Albumin, Serum 3.6 g/dL (3.2-5.0); Alkaline Phosphatase 93 U/L (45-117); Anion Gap 5 (5-15); BUN 41 mg/dL (7-18); BUN/Creat Ratio 23.7 RATIO (10-20); Calcium,Total 8.3 mg/dL (8.5-10.1); Chloride 104 mmol/L (98-107); Creatinine, Serum 1.73 mg/dL (0.55-1.02); EST Glomerular Filtration Rate 30 mL/min (>60); Est Glom Filt Rate - Afr Amer 37 mL/min (>60); Estimated Creatinine Clearance 22.53 ml/min; Globulin 3.6 g/dL (2.2-4.2); Glucose 187 mg/dL (74-106); Lipase 59 U/L (73-393); Potassium 4.7 mmol/L (3.5-5.1); Protein, Total 7.2 g/dL (6.4-8.2); Sodium Level 135 mmol/L (136-145)
[2020-01-25 05:15] VITALS: BP 129/59; PULSE 101; RESP 22; O2SAT 96
[2020-01-25] MEDS: tiZANidine HCl 2 MG Tablet 4 MG PO (05:47)
[2020-01-25 07:04] VITALS: BP 149/89; PULSE 78; RESP 18; O2SAT 90
== END 2020-01-25 07:06 | disposition home or self-care (01) ==
PROVIDERS: Emergency Provider Emergency Medicine; PCP Family Medicine
DX: M54.9 Dorsalgia, unspecified (principal); I10 Essential (primary) hypertension
CPT/HCPCS: 71275; 80053; 83690; 84484; 85025; 93005; 96361; 96374; 96375; 99285; J7040; Q9967; A4216; J2405

== ENCOUNTER → 2020-04-02 12:37 | Outpatient (CLI) | payer MEDICARE, OTHER, SELFPAY ==
--- NOTE | 2020-04-02 12:39 | BI_ITS ---
MAMMOGRAPHY - BILATERAL SCREENING REASON FOR EXAM: Female, 80 years old. Routine annual screening examination. PERTINENT HISTORY: Non-contributory. TECHNIQUE: Digital bilateral breast manisha (3D mammographic acquisition) in the CC and MLO projections. 2-D mediolateral oblique (MLO) and craniocaudad (CC) views of both breasts were obtained. CAD: Full Field Digital Mammography with Computer Added Detection was performed. COMPARISON: Comparison is made with prior study dated 04/01/2019 and 03/29/2018. FINDINGS: Breast Composition: There are scattered areas of fibroglandular density. There are no dominant masses or suspicious calcifications. No other significant abnormalities are identified. There has been no significant change since the prior study. BI/SCREEN MAMM (CAD) W/MANISHA BILAT IMPRESSION: Stable bilateral screening mammogram. Yearly follow-up mammogram recommended. (A) ASSESSMENT CATEGORY: BIRADS Category 1: Negative. A letter regarding these results will be sent to the patient by the facility within 30 days. Approximately 10% of breast cancers are not detected by mammography. A normal mammogram should not delay biopsy of a clinically suspicious abnormality. [id number] Electronically Signed: Cortes Crenshaw, at 14:01 EDT , Service support ,
== END ==
PROVIDERS: PCP Family Medicine; Referring Provider Family Medicine; Visit Provider Family Medicine
DX: Z12.31 Encounter for screening mammogram for malignant neoplasm of breast (principal)
CPT/HCPCS: 77063; 77067

== ENCOUNTER → 2020-04-13 10:18 | Outpatient (CLI) | payer MEDICARE, OTHER, SELFPAY ==
[2020-04-13 13:29] LABS: AST(SGOT) 19 U/L (15-37); Alanine Aminotransfer ALT/SGPT 25 U/L (13-56); Albumin, Serum 3.8 g/dL (3.2-5.0); Alkaline Phosphatase 86 U/L (45-117); Bilirubin, Direct 0.15 mg/dL (0.00-0.30); Cholesterol 181 mg/dL (200); Globulin 3.3 g/dL (2.2-4.2); High Density Lipoprotein 46 mg/dL; Protein, Total 7.1 g/dL (6.4-8.2); Triglycerides 172 mg/dL; Very Low Density Lipoprotein 34 mg/dL (5-40)
[2020-04-13 13:46] LABS: Microalbumin,Random Urine < 5.0 mg/L (NO RANGE EST.)
== END ==
PROVIDERS: PCP Family Medicine; Visit Provider Family Medicine
DX: E11.9 Type 2 diabetes mellitus without complications (principal)
CPT/HCPCS: 36415; 80061; 80076; 82043; 82570; 83036

== ENCOUNTER → 2021-04-05 11:22 | Outpatient (CLI) | payer MEDICARE, OTHER, SELFPAY ==
--- NOTE | 2021-04-05 11:23 | BI_ITS ---
MAMMOGRAPHY - BILATERAL SCREENING 3-D TOMOSYNTHESIS REASON FOR EXAM: Female, 81 years old. screening PERTINENT HISTORY: No significant family history. TECHNIQUE: 2-D mammograms and 3-D Tomosynthesis of the breast (s) were performed. CAD was performed. COMPARISON: 04/02/2020 FINDINGS: The breast composition is composed of scattered fibroglandular density. Scattered benign calcifications are seen. 1 cm oval indistinct high density mass in the lower inner quadrant of the right breast and focal compression views are recommended for further evaluation. No dominant mass left breast. No suspicious calcifications.. No architectural distortion is identified. There is no skin thickening or retraction. BI/SCRN MAMM (CAD)W/MANISHA BILAT IMPRESSION: 1 cm oval indistinct high density mass lower inner quadrant right breast and focal compression views recommended for further evaluation. ASSESSMENT CATEGORY: BIRADS Category 0: Incomplete. Need additional imaging evaluation as above. A letter regarding these results will be sent to the patient by the facility within 30 days. FOLLOW UP RECOMMENDATION: Additional imaging recommended as above. (E) Approximately 10% of breast cancers are not detected by mammography. A normal mammogram should not delay biopsy of a clinically suspicious abnormality. Electronically Signed: Nicholas Magana MD at 18:14 EDT Tel , Service support ,
== END ==
PROVIDERS: PCP Family Medicine; Referring Provider Family Medicine; Visit Provider Family Medicine
DX: Z12.31 Encounter for screening mammogram for malignant neoplasm of breast (principal)
CPT/HCPCS: 77063; 77067

== ENCOUNTER → 2021-04-09 09:22 | Outpatient (CLI) | payer MEDICARE, OTHER, SELFPAY ==
--- NOTE | 2021-04-09 09:24 | BI_ITS ---
MAMMOGRAPHY - UNILATERAL DIAGNOSTIC: RIGHT BREAST REASON FOR EXAM: Female, 81 years old. RIGHT BREAST DENSITY PERTINENT HISTORY: Non-contributory. TECHNIQUE: Digital examination. Mediolateral oblique (MLO) and craniocaudad (CC) views of the breast were obtained. CAD: CAD was not performed on this study. COMPARISON: 04/02/2020 FINDINGS: Breast Composition: The breasts are heterogeneously dense, which may obscure small masses. Focal compression views confirm an 8 mm irregular obscured equal density mass in the lower inner quadrant of the right breast and ultrasound is recommended for further evaluation. No other significant abnormalities are identified. BI/DIAG MAMM W/CAD, UNILAT IMPRESSION: Further ultrasonographic evaluation recommended, as described above. ASSESSMENT CATEGORY: BIRADS Category 0: Incomplete. Need additional imaging evaluation. A letter regarding these results will be sent to the patient by the facility within 30 days. FOLLOW-UP RECOMMENDATION: Ultrasound recommended. (I) Approximately 10% of breast cancers are not detected by mammography. A normal mammogram should not delay biopsy of a clinically suspicious abnormality. Electronically Signed: Nicholas Magana MD at 10:06 EDT Tel , Service support ,
--- NOTE | 2021-04-09 09:24 | US_ITS ---
STUDY: ULTRASOUND BREAST - RIGHT REASON FOR EXAM: Female, 81 years old. Abnormal screening mammogram. TECHNIQUE: Axial and longitudinal images of the RIGHT breast were performed with a high resolution ultrasound transducer. # OF IMAGES: 32 COMPARISON: Diagnostic mammogram earlier today, screening mammogram 04/05/2021 FINDINGS: RIGHT Breast: Heterogeneous background echotexture. Multiple longitudinal and transverse ultrasound images of the lower inner quadrant of the right breast fail to demonstrate a discrete solid or cystic mass most consistent with normal breast parenchyma..: US/Breast Complete Unilateral IMPRESSION: Normal right breast ultrasound. Short interval follow-up is recommended. CC and MLO mammograms of the right breast recommended in 6 months. ASSESSMENT CATEGORY: BIRADS Category 3: Probably Benign - Short-Interval Follow-up Suggested. A letter regarding these results will be sent to the patient by the facility within 30 days. Electronically Signed: Nicholas Magana MD at 15:58 EDT Tel , Service support ,
== END ==
PROVIDERS: PCP Family Medicine; Referring Provider Family Medicine; Visit Provider Family Medicine
DX: R92.8 Other abnormal and inconclusive findings on diagnostic imaging of breast (principal)
CPT/HCPCS: 76641; 77065

== ENCOUNTER → 2021-04-14 10:14 | Outpatient (CLI) | payer MEDICARE, OTHER, SELFPAY ==
[2021-04-14 12:30] LABS: Anion Gap 5 (5-15); BUN 28 mg/dL (7-18); BUN/Creat Ratio 21.2 RATIO (10-20); Calcium,Total 9.2 mg/dL (8.5-10.1); Chloride 109 mmol/L (98-107); Cholesterol 165 mg/dL (200); Creatinine, Serum 1.32 mg/dL (0.55-1.02); EST Glomerular Filtration Rate 41 mL/min (>60); Est Glom Filt Rate - Afr Amer 50 mL/min (>60); Glucose 109 mg/dL (74-106); High Density Lipoprotein 47 mg/dL; Potassium 4.7 mmol/L (3.5-5.1); Sodium Level 140 mmol/L (136-145); Triglycerides 138 mg/dL; Very Low Density Lipoprotein 28 mg/dL (5-40)
== END ==
PROVIDERS: PCP Family Medicine; Referring Provider Family Medicine; Visit Provider Family Medicine
DX: I10 Essential (primary) hypertension (principal)
CPT/HCPCS: 36415; 80048; 80061

== ENCOUNTER → 2021-10-25 | Outpatient (CLI) | payer MEDICARE, OTHER, SELFPAY ==
--- NOTE | 2021-10-25 09:07 | BI_ITS ---
MAMMOGRAPHY - UNILATERAL DIAGNOSTIC: RIGHT BREAST REASON FOR EXAM: Female, 81 years old. ABN FINDINGS PERTINENT HISTORY: Non-contributory. TECHNIQUE: Digital examination. Mediolateral oblique (MLO) and craniocaudad (CC) views of the breast were obtained. CAD: CAD was not performed on this study. COMPARISON: 04/05/2021, 04/09/2021 FINDINGS: Breast Composition: There are scattered areas of fibroglandular density. There is no change in 1 cm oval indistinct high density mass in the lower inner quadrant of the right breast and ultrasound is recommended for further evaluation. No other significant abnormalities are identified. BI/DIAG MAMM W/CAD, UNILAT IMPRESSION: Stable unilateral diagnostic mammogram. Ultrasound will be obtained. ASSESSMENT CATEGORY: BIRADS Category 0: Incomplete. Need additional imaging evaluation. A letter regarding these results will be sent to the patient by the facility within 30 days. FOLLOW-UP RECOMMENDATION: Ultrasound recommended. (I) Approximately 10% of breast cancers are not detected by mammography. A normal mammogram should not delay biopsy of a clinically suspicious abnormality. Electronically Signed: Nicholas Magana MD at 10:02 EDT ,
--- NOTE | 2021-10-25 10:05 | US_ITS ---
STUDY: ULTRASOUND BREAST - RIGHT REASON FOR EXAM: Female, 81 years old. Short interval follow-up TECHNIQUE: Axial and longitudinal images of the RIGHT breast were performed with a high resolution ultrasound transducer. # OF IMAGES: 48 COMPARISON: 04/09/2021 FINDINGS: RIGHT Breast: Heterogeneous background echotexture. Multiple longitudinal and transverse ultrasound images of the lower inner quadrant of the right breast continue to fail to demonstrate a discrete solid or cystic mass favoring normal breast parenchyma. Continued short-term follow-up is recommended. CC and MLO views of the right breast and right breast ultrasound are recommended in 6 months.: US/Breast Limited Unilateral IMPRESSION: No change in the focal asymmetry in the lower inner quadrant of the right breast at mid depth likely consistent with normal breast parenchyma. Short interval follow-up is recommended in 6 months. ASSESSMENT CATEGORY: BIRADS Category 3: Probably Benign - Short-Interval Follow-up Suggested. A letter regarding these results will be sent to the patient by the facility within 30 days. Electronically Signed: Nicholas Magana MD at 10:50 EDT ,
== END | disposition home or self-care (01) ==
LOC: OPBI 09:03
PROVIDERS: PCP Family Medicine; Visit Provider Family Medicine
DX: R92.8 Other abnormal and inconclusive findings on diagnostic imaging of breast (principal)
CPT/HCPCS: 76642; 77061; 77065; G0279

== ENCOUNTER → 2022-04-18 | Outpatient (CLI) | payer MEDICARE, OTHER, SELFPAY ==
[2022-04-18 18:22] LABS: Microalbumin,Random Urine < 5.0 mg/L (NO RANGE EST.)
[2022-04-18 18:28] LABS: Anion Gap 8 (5-15); BUN 24 mg/dL (7-18); BUN/Creat Ratio 19.8 RATIO (10-20); Calcium,Total 9.1 mg/dL (8.5-10.1); Chloride 105 mmol/L (98-107); Cholesterol 179 mg/dL (200); Creatinine, Serum 1.21 mg/dL (0.55-1.02); EST Glomerular Filtration Rate 46 mL/min (>60); Est Glom Filt Rate - Afr Amer 55 mL/min (>60); Glucose 96 mg/dL (74-106); High Density Lipoprotein 40 mg/dL; Potassium 4.2 mmol/L (3.5-5.1); Sodium Level 140 mmol/L (136-145); Triglycerides 323 mg/dL; Very Low Density Lipoprotein 65 mg/dL (5-40)
== END | disposition home or self-care (01) ==
LOC: MFPLAB 15:18
PROVIDERS: PCP Family Medicine; Referring Provider Family Medicine; Visit Provider Family Medicine
DX: I10 Essential (primary) hypertension (principal)
CPT/HCPCS: 36415; 80048; 80061; 82043; 82570

== ENCOUNTER → 2022-05-31 | Outpatient (CLI) | payer MEDICARE, OTHER, SELFPAY ==
--- NOTE | 2022-05-31 12:05 | BI_ITS ---
MAMMOGRAPHY - BILATERAL SCREENING REASON FOR EXAM: Female, 82 years old. Routine annual screening examination. PERTINENT HISTORY: Non-contributory. TECHNIQUE: Digital bilateral breast manisha (3D mammographic acquisition) in the CC and MLO projections. 2-D mediolateral oblique (MLO) and craniocaudad (CC) views of both breasts were obtained. CAD: Full Field Digital Mammography with Computer Added Detection was performed. COMPARISON: Comparison is made with prior study 04/05/2021 and 10/25/2021. FINDINGS: Breast Composition: There are scattered areas of fibroglandular density. There are no dominant masses or suspicious calcifications. Stable 1 cm nodular density best seen on the craniocaudad view along the medial aspect of the right breast. This most likely represents focal glandular tissue. No other significant abnormalities are identified. There has been no significant change since the prior study. BI/SCRN MAMM (CAD)W/MANISHA BILAT IMPRESSION: Stable bilateral screening mammogram. Yearly follow-up mammogram recommended. (A) ASSESSMENT CATEGORY: BIRADS Category 2: Benign. A letter regarding these results will be sent to the patient by the facility within 30 days. Approximately 10% of breast cancers are not detected by mammography. A normal mammogram should not delay biopsy of a clinically suspicious abnormality. [id number] Electronically Signed: Cortes Crenshaw MD at 13:11 EST ,
== END | disposition home or self-care (01) ==
LOC: OPBI 12:03
PROVIDERS: PCP Family Medicine; Referring Provider Family Medicine; Visit Provider Family Medicine
DX: Z12.31 Encounter for screening mammogram for malignant neoplasm of breast (principal)
CPT/HCPCS: 77063; 77067

== ENCOUNTER → 2022-10-17 | Outpatient (CLI) | payer MEDICARE, OTHER, SELFPAY ==
[2022-10-17 12:52] LABS: AST(SGOT) 17 U/L (15-37); Alanine Aminotransfer ALT/SGPT 21 U/L (13-56); Anion Gap 5 (5-15); BUN 25 mg/dL (7-18); BUN/Creat Ratio 21.4 RATIO (10-20); Calcium,Total 9.1 mg/dL (8.5-10.1); Chloride 105 mmol/L (98-107); Cholesterol 185 mg/dL (200); Creatinine, Serum 1.17 mg/dL (0.55-1.02); EST Glomerular Filtration Rate 47 mL/min (>60); Est Glom Filt Rate - Afr Amer 57 mL/min (>60); Glucose 103 mg/dL (74-106); High Density Lipoprotein 50 mg/dL; Potassium 4.4 mmol/L (3.5-5.1); Sodium Level 135 mmol/L (136-145); Triglycerides 183 mg/dL; Very Low Density Lipoprotein 37 mg/dL (5-40)
== END | disposition home or self-care (01) ==
LOC: MFPLAB 11:03
PROVIDERS: PCP Family Medicine; Visit Provider Family Medicine
DX: I10 Essential (primary) hypertension (principal); E78.5 Hyperlipidemia, unspecified
CPT/HCPCS: 36415; 80048; 80061; 84450; 84460

== ENCOUNTER 2023-03-30 14:42 | Outpatient (CLI) | payer MEDICARE, OTHER, SELFPAY ==
--- NOTE | 2023-03-30 14:58 | RAD_ITS ---
STUDY: X-RAY CHEST REASON FOR EXAM: Female, 83 years old. Pneumonia TECHNIQUE: Single AP portable view of the chest. COMPARISON: Chest x-ray 05/08/2017, CT of the chest 01/25/2020. FINDINGS: Moderate lung volumes. No infiltrates or effusions are seen. Normal size heart. Normal mediastinum and annie. Normal visualized pulmonary arteries. Normal visualized aortic arch and descending thoracic aorta. There are diffuse degenerative changes of the visualized thoracic spine. Normal visualized ribs, clavicles, and shoulders. There is no demonstrated abnormality of the visualized soft tissue structures of the upper abdomen. RAD/Chest PA and Lateral IMPRESSION: No definite acute or significant abnormality seen. Electronically Signed: Jez El MD at 16:30 EDT ,
[2023-03-30 17:46] LABS: Absolute Lymphocyte Count 1.47 X10^3/uL (0.83-4.51); Absolute Neutrophil Count 2.6 X10^3/uL (2.0-7.7); Basophil# 0.03 X10^3/uL; Basophil% 0.6 % (0-1); Eosinophil# 0.11 X10^3/uL; Eosinophils% 2.3 % (0-5); Hematocrit 33.4 % (37-47); Hemoglobin 10.6 g/dL (12.0-15.0); Lymphocyte # 1.47 X10^3/ul (0.83-4.51); Lymphocyte % 30.4 % (19-41); Mean Corp Hgb Conc 31.7 g/dL (32-36); Mean Corpuscular Hgb 28.6 pg (27.0-32.0); Mean Platelet Vol. 10.7 fl (6.2-12.0); Monocyte# 0.57 X10^3/uL; Monocyte% 11.8 % (0-10); NRBC Flagged by Analyzer 0 % (0-5); Neutrophil # 2.64 X10^3/uL (2.7-7.7); Neutrophil % 54.5 % (47-70); Platelet Count 178 K/mm3 (150-450); RBC Distribution Width CV 12.7 % (11.6-14.6); RBC Distribution Width SD 41.7 fl (35.1-43.9); Red Blood Count 3.71 M/mm3 (4.2-5.4); White Blood Count 4.8 K/mm3 (4.4-11.0)
[2023-03-30 18:02] LABS: ALB/GLOB Ratio 1.4 RATIO (0.9-2.4); AST(SGOT) 23 U/L (15-37); Alanine Aminotransfer ALT/SGPT 26 U/L (13-56); Albumin, Serum 3.8 g/dL (3.2-5.0); Alkaline Phosphatase 73 U/L (45-117); Anion Gap 2 (5-15); BNP,B-Type NATRIURETIC PEPTIDE 235.9 pg/mL (0-100); BUN 35 mg/dL (7-18); Calcium,Total 8.9 mg/dL (8.5-10.1); Chloride 111 mmol/L (98-107); Creatinine, Serum 1.59 mg/dL (0.55-1.02); EST Glomerular Filtration Rate 33 mL/min (>60); Est Glom Filt Rate - Afr Amer 40 mL/min (>60); Globulin 2.8 g/dL (2.2-4.2); Glucose 83 mg/dL (74-106); Potassium 4.6 mmol/L (3.5-5.1); Protein, Total 6.6 g/dL (6.4-8.2); Sodium Level 140 mmol/L (136-145)
== END 2023-03-30 23:59 | disposition home or self-care (01) ==
PROVIDERS: PCP Family Medicine; Referring Provider Family Medicine; Visit Provider Family Medicine
DX: J18.9 Pneumonia, unspecified organism (principal); R09.89 Other specified symptoms and signs involving the circulatory and respiratory systems
CPT/HCPCS: 36415; 71046; 80053; 83880; 85025; 86140

== ENCOUNTER → 2023-04-03 | Outpatient (CLI) | payer MEDICARE, OTHER, SELFPAY ==
[2023-04-03 17:37] LABS: Absolute Lymphocyte Count 1.52 X10^3/uL (0.83-4.51); Absolute Neutrophil Count 3.5 X10^3/uL (2.0-7.7); Basophil# 0.02 X10^3/uL; Basophil% 0.4 % (0-1); Eosinophil# 0.08 X10^3/uL; Eosinophils% 1.4 % (0-5); Hematocrit 33.1 % (37-47); Hemoglobin 10.4 g/dL (12.0-15.0); Lymphocyte # 1.52 X10^3/ul (0.83-4.51); Lymphocyte % 26.7 % (19-41); Mean Corp Hgb Conc 31.4 g/dL (32-36); Mean Corpuscular Hgb 28.4 pg (27.0-32.0); Mean Corpuscular Volume 90.4 fL (81-99); Mean Platelet Vol. 10.6 fl (6.2-12.0); Monocyte% 10.5 % (0-10); NRBC Flagged by Analyzer 0 % (0-5); Neutrophil # 3.47 X10^3/uL (2.7-7.7); Neutrophil % 60.8 % (47-70); Platelet Count 192 K/mm3 (150-450); RBC Distribution Width CV 12.9 % (11.6-14.6); RBC Distribution Width SD 42.7 fl (35.1-43.9); Red Blood Count 3.66 M/mm3 (4.2-5.4); White Blood Count 5.7 K/mm3 (4.4-11.0)
[2023-04-03 18:22] LABS: ALB/GLOB Ratio 1.2 RATIO (0.9-2.4); AST(SGOT) 23 U/L (15-37); Alanine Aminotransfer ALT/SGPT 30 U/L (13-56); Albumin, Serum 3.8 g/dL (3.2-5.0); Alkaline Phosphatase 71 U/L (45-117); Anion Gap 5 (5-15); BUN 34 mg/dL (7-18); BUN/Creat Ratio 22.8 RATIO (10-20); CRP, High Sensitivity Cardiac 6.89 mg/L; Calcium,Total 8.9 mg/dL (8.5-10.1); Chloride 109 mmol/L (98-107); Creatinine, Serum 1.49 mg/dL (0.55-1.02); EST Glomerular Filtration Rate 36 mL/min (>60); Est Glom Filt Rate - Afr Amer 43 mL/min (>60); Globulin 3.1 g/dL (2.2-4.2); Glucose 84 mg/dL (74-106); Potassium 4.7 mmol/L (3.5-5.1); Protein, Total 6.9 g/dL (6.4-8.2); Sodium Level 141 mmol/L (136-145)
[2023-04-03 19:30] LABS: BNP,B-Type NATRIURETIC PEPTIDE 216.4 pg/mL (0-100)
== END | disposition home or self-care (01) ==
LOC: MFPLAB 16:03
PROVIDERS: PCP Family Medicine; Visit Provider Family Medicine
DX: R06.2 Wheezing (principal); R09.89 Other specified symptoms and signs involving the circulatory and respiratory systems
CPT/HCPCS: 36415; 80053; 83880; 85025; 86141

== ENCOUNTER → 2023-04-06 | Outpatient (CLI) | payer MEDICARE, OTHER, SELFPAY ==
--- NOTE | 2023-04-06 13:01 | RAD_ITS ---
EXAM: XR CHEST, 2 VIEWS CLINICAL INDICATION: DIASTOLIC CHF TECHNIQUE: Frontal and lateral views of the chest. COMPARISON: 03/30/2023. FINDINGS: LUNGS AND PLEURAL SPACES: Pulmonary vascular redistribution worrisome for CHF. This may be chronic since it is unchanged. Small right pleural effusion blunting the right costophrenic sulcus. No pneumothorax. No confluent infiltrates. HEART: Unremarkable. Normal cardiac size. MEDIASTINUM: Central airways and mediastinal contour are unremarkable. BONES/JOINTS: Unremarkable. SOFT TISSUES: Unremarkable. RAD/Chest PA and Lateral IMPRESSION: 1. Pulmonary vascular redistribution worrisome for CHF. This is may be chronic since unchanged when compared to 03/30/2023. 2. Small right pleural effusion. Electronically Signed: Hakeem Dunn MD at 15:41 EDT ,
[2023-04-06 15:01] LABS: Absolute Lymphocyte Count 1.54 X10^3/uL (0.83-4.51); Absolute Neutrophil Count 3.5 X10^3/uL (2.0-7.7); Basophil# 0.04 X10^3/uL; Basophil% 0.7 % (0-1); Eosinophil# 0.15 X10^3/uL; Eosinophils% 2.5 % (0-5); Hematocrit 33.4 % (37-47); Hemoglobin 10.5 g/dL (12.0-15.0); Lymphocyte # 1.54 X10^3/ul (0.83-4.51); Lymphocyte % 25.9 % (19-41); Mean Corp Hgb Conc 31.4 g/dL (32-36); Mean Corpuscular Hgb 28.8 pg (27.0-32.0); Mean Corpuscular Volume 91.8 fL (81-99); Mean Platelet Vol. 10.8 fl (6.2-12.0); Monocyte# 0.69 X10^3/uL; Monocyte% 11.6 % (0-10); NRBC Flagged by Analyzer 0 % (0-5); Neutrophil # 3.51 X10^3/uL (2.7-7.7); Neutrophil % 59.1 % (47-70); Platelet Count 213 K/mm3 (150-450); RBC Distribution Width CV 13.2 % (11.6-14.6); RBC Distribution Width SD 44.4 fl (35.1-43.9); Red Blood Count 3.64 M/mm3 (4.2-5.4); White Blood Count 5.9 K/mm3 (4.4-11.0)
[2023-04-06 15:51] LABS: ALB/GLOB Ratio 1.3 RATIO (0.9-2.4); AST(SGOT) 25 U/L (15-37); Alanine Aminotransfer ALT/SGPT 33 U/L (13-56); Alkaline Phosphatase 76 U/L (45-117); Anion Gap 5 (5-15); BUN 38 mg/dL (7-18); BUN/Creat Ratio 20.9 RATIO (10-20); Calcium,Total 8.7 mg/dL (8.5-10.1); Chloride 110 mmol/L (98-107); Creatinine, Serum 1.82 mg/dL (0.55-1.02); EST Glomerular Filtration Rate 28 mL/min (>60); Est Glom Filt Rate - Afr Amer 34 mL/min (>60); Globulin 3.1 g/dL (2.2-4.2); Glucose 94 mg/dL (74-106); Magnesium 2.1 mg/dL (1.6-2.6); Potassium 5.1 mmol/L (3.5-5.1); Protein, Total 7.1 g/dL (6.4-8.2); Sodium Level 141 mmol/L (136-145)
[2023-04-06 17:10] LABS: BNP,B-Type NATRIURETIC PEPTIDE 150.9 pg/mL (0-100)
== END | disposition home or self-care (01) ==
LOC: MTLAB 12:57
PROVIDERS: PCP Family Medicine; Referring Provider Family Medicine; Visit Provider Family Medicine
DX: I50.31 Acute diastolic (congestive) heart failure (principal)
CPT/HCPCS: 36415; 71046; 80053; 83735; 83880; 85025; 86140

== ENCOUNTER → 2023-04-07 | Outpatient (CLI) | payer MEDICARE, OTHER, SELFPAY ==
--- NOTE | 2023-04-07 10:47 | CT_ITS ---
INDICATION: persistent cough. RML consolidation vs RML collapse. STAT EXAMINATION: CT CHEST WITHOUT CONTRAST - CT Chest W/O Contrast Injection TECHNIQUE: Helically acquired images were obtained of the chest. A radiation dose optimization technique was used for this scan. IV Contrast dosage and agent: None. RADIATION DOSAGE (If Supplied By Facility): CTDIvol = ( 14.20 ) mGy, DLP = ( 450.63 ) mGycm COMPARISON: Prior study dated: 01/25/2020 FINDINGS: LUNGS, PLEURA AND LARGE AIRWAYS: Mild prominence of the pulmonary vasculature. Mild atelectatic changes in the right lower lobe. Small right pleural effusion. No pneumothorax. THYROID: Probable small left lobe thyroid nodules. HEART AND PERICARDIUM: Borderline heart size. No pericardial effusion. No significant coronary calcifications. VESSELS: Atherosclerotic calcifications of the thoracic aorta without evidence of aneurysm. MEDIASTINUM AND LANE: Few mediastinal nodes essential unchanged. No evidence of new adenopathy. Esophagus is unremarkable. No hiatal hernia. UPPER ABDOMEN: No acute pathology. BONES: Degenerative changes of the spine. CT/Chest without Contrast IMPRESSION: 1. Mild compressive atelectatic changes in the right lower lobe. 2. Small right pleural effusion. 3. Mild pulmonary venous congestion. Electronically Signed: Maldonado Fountain MD at 11:27 EDT ,
== END | disposition home or self-care (01) ==
LOC: CT 10:41
PROVIDERS: PCP Family Medicine; Referring Provider Family Medicine; Visit Provider Family Medicine
DX: R93.89 Abnormal findings on diagnostic imaging of other specified body structures (principal)
CPT/HCPCS: 71250

== ENCOUNTER → 2023-04-10 | Outpatient (CLI) | payer MEDICARE, OTHER, SELFPAY ==
[2023-04-10 15:47] LABS: Anion Gap 5 (5-15); BUN 30 mg/dL (7-18); BUN/Creat Ratio 17.8 RATIO (10-20); Calcium,Total 9.1 mg/dL (8.5-10.1); Chloride 107 mmol/L (98-107); Creatinine, Serum 1.69 mg/dL (0.55-1.02); EST Glomerular Filtration Rate 31 mL/min (>60); Est Glom Filt Rate - Afr Amer 37 mL/min (>60); Glucose 98 mg/dL (74-106); Magnesium 2.2 mg/dL (1.6-2.6); Potassium 5.6 mmol/L (3.5-5.1); Sodium Level 136 mmol/L (136-145)
== END | disposition home or self-care (01) ==
LOC: MFPLAB 11:43
PROVIDERS: PCP Family Medicine; Visit Provider Family Medicine
DX: I50.31 Acute diastolic (congestive) heart failure (principal)
CPT/HCPCS: 36415; 80048; 83735

== ENCOUNTER 2023-04-11 10:36 | Observation (INO) | payer MEDICARE, OTHER, SELFPAY ==
[2023-04-11] VITALS (18 sets, daily range): BP systolic 154–216; BP diastolic 66–109; PULSE 76–102; RESP 14–27; TEMP 36.2–36.8; O2SAT 92–96; BMI 34.0; BMI 32.2; BMI 31.9
--- NOTE | 2023-04-11 10:48 | ED.RN ---
Spoke w/ Dr. Muse regarding symptoms and patient being neuro symptom free on arrival with [place] scale being negative and abbreviated NIH being negative, no stroke alert activated.
--- NOTE | 2023-04-11 10:49 | RAD_ITS ---
HISTORY: Neuro deficit, acute, stroke suspected. TECHNIQUE: XR Chest 1 View. COMPARISON: 04/06/2023. FINDINGS: CARDIOMEDIASTINAL BORDERS: Cardiac silhouette within normal limits in size. Prominence of the right paratracheal soft tissues from tortuous vessels again noted. LUNGS: Mild pulmonary vascular congestion and bibasilar atelectasis. PLEURA: Trace right pleural effusion. OSSEOUS STRUCTURES: Mild degenerative change. RAD/Chest 1 View IMPRESSION: Mild pulmonary vascular congestion and bibasilar atelectasis with trace right pleural effusion. Electronically Signed: Rae Garcia MD at 12:05 EDT ,
--- NOTE | 2023-04-11 10:49 | EKG12_ITS ---
Test Reason : neuro Blood Pressure : / mmHG Vent. 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
--- NOTE | 2023-04-11 10:50 | CT_ITS ---
HISTORY: Neuro deficit, acute, stroke suspected. TECHNIQUE: Noncontrast axial images were obtained of the brain. Subsequently, routine carotid and [place] CT angiogram protocol was performed after the intravenous administration of 100 mL Isovue-370. NASCET criteria using the distal ICAs for comparison were used for evaluation of stenoses. 3D reconstructions were reviewed. A radiation dose optimization technique was used for this scan. 1994 images. COMPARISON: 05/08/2017. FINDINGS: --CT BRAIN: BRAIN PARENCHYMA: Mild chronic white matter changes. No acute intra-axial hemorrhage seen. CSF SPACES: Cerebral ventricles, cortical sulci, and other extra-axial CSF spaces within normal limits in size for age. No midline shift or other significant mass effect.No acute extra-axial hemorrhage identified. OTHER: Intact calvarium.Left maxillary sinus mucosal thickening. Symmetrical orbital contents. ASPECTS Score for Acute Strokes: 10 --CTA NECK: AORTIC ARCH AND BRANCHES: Mild calcified plaque. Less than 50% stenosis at the origin of the left subclavian artery. RIGHT CCA: No occlusion, significant stenosis or dissection. Minimal calcified plaque at the bifurcation. RIGHT ICA: No occlusion, significant stenosis or dissection. Minimal calcified plaque proximally. LEFT CCA: No occlusion, significant stenosis or dissection. Tortuous proximally. LEFT ICA: No occlusion, significant stenosis or dissection. RIGHT VERTEBRAL ARTERY: No occlusion, significant stenosis or dissection. Dominant. LEFT VERTEBRAL ARTERY: No occlusion, significant stenosis or dissection. Hypoplastic. OTHER: Multinodular thyroid. --CTA HEAD: ICAs: No significant stenosis at the intracranial/visualized segments. Mild calcified plaque at both carotid siphons. ACAs: No significant stenosis at the visualized segments. MCAs: No significant stenosis at the visualized segments. post secondary professional: No significant stenosis at the visualized segments. BASILAR ARTERY: No significant stenosis. VERTEBRAL ARTERIES: No significant stenosis at the intradural/visualized segments. Hypoplastic left vertebral artery terminates as PICA. No evidence of intracranial aneurysm or vascular malformation. CT/CTA Head AND Neck W/ Contrast IMPRESSION: No acute intracranial process identified. Mild chronic small vessel ischemic gliosis. No evidence for significant stenosis or occlusion in the carotid or vertebral arteries of the neck. No evidence for large vessel occlusion or other focal vascular abnormality in the [place] region. Electronically Signed: Rae Garcia MD at 12:04 EDT ,
--- NOTE | 2023-04-11 10:53 | ED.RN ---
Patient states I kept on looking at facebook this morning and it just seemed blurry along with I just couldn't hold my pills; all these symptoms lasted less than half hour per patient. No blurred vision, no weakness noted on exam. Also states she was advised to hold potassium and spirnolactone, due to potassium being high yesterday on blood draw.
[2023-04-11 11:05] LABS: Absolute Lymphocyte Count 1.38 X10^3/uL (0.83-4.51); Absolute Neutrophil Count 3.3 X10^3/uL (2.0-7.7); Basophil# 0.02 X10^3/uL; Basophil% 0.4 % (0-1); Eosinophil# 0.12 X10^3/uL; Eosinophils% 2.2 % (0-5); Hematocrit 36.9 % (37-47); Hemoglobin 11.9 g/dL (12.0-15.0); Lymphocyte # 1.38 X10^3/ul (0.83-4.51); Lymphocyte % 25.6 % (19-41); Mean Corp Hgb Conc 32.2 g/dL (32-36); Mean Corpuscular Hgb 29.1 pg (27.0-32.0); Mean Corpuscular Volume 90.2 fL (81-99); Monocyte# 0.55 X10^3/uL; Monocyte% 10.2 % (0-10); NRBC Flagged by Analyzer 0 % (0-5); Neutrophil # 3.31 X10^3/uL (2.7-7.7); Neutrophil % 61.4 % (47-70); Platelet Count 225 K/mm3 (150-450); RBC Distribution Width CV 13.2 % (11.6-14.6); Red Blood Count 4.09 M/mm3 (4.2-5.4); White Blood Count 5.4 K/mm3 (4.4-11.0)
[2023-04-11 11:14] LABS: International Normalized Ratio 1.1; Prothrombin Time (Protime)PT. 14.1 SECONDS (11.7-14.9)
[2023-04-11 11:15] LABS: Partial Thromboplast Time 27.4 Seconds (24.1-36.2)
[2023-04-11 11:21] LABS: Anion Gap 5 (5-15); BUN 27 mg/dL (7-18); BUN/Creat Ratio 15.8 RATIO (10-20); Chloride 107 mmol/L (98-107); Creatinine, Serum 1.71 mg/dL (0.55-1.02); EST Glomerular Filtration Rate 30 mL/min (>60); Est Glom Filt Rate - Afr Amer 37 mL/min (>60); Estimated Creatinine Clearance 21.34 ml/min; Glucose 151 mg/dL (74-106); Potassium 4.8 mmol/L (3.5-5.1); Sodium Level 138 mmol/L (136-145); Troponin-I HS 27 pg/mL (3.0-54.0)
--- NOTE | 2023-04-11 11:57 | EDS_ITS ---
HPI History of Present Illness Chief Complaint: Neuro S/Sx Detail of Chief Complaint: Right hand weakness and dysarthria both resolved Informant: patient Onset/Context/Timing Onset: Today Context: Sudden Onset Timing: - (Symptoms have now completely resolved.) Quality and Location: Positive for Right Arm Weakness and Expressive Aphasia Current Severity: Gone Maximum Severity: Moderate Associated Symptoms Associated Symptoms: Negative for Headache, Nausea or Vomiting Narrative Narrative: 83-year-old female history of hypertension. Patient had pneumonia about 2 weeks ago. Was treated by her primary care physician's office. She has been doing well the last several days. Around 03-11 this morning she said she does not feel right. She had weakness in her right hand and when she went to take her medications she kept dropping the bottle. She also stated she was having trouble expressing what she wanted to say. She was at home alone so no one else witnesses. It lasted approximately 30 minutes and is now completely resolved. She has never had a stroke or mini stroke that she is aware of. She denies any symptoms currently. Prior similar symptoms: No Recent Illness/Hospitalization: No PFSH PFSH Home Medications losartan 100 mg tablet 100 mg PO DAILY BP 12/03/18 [History Last Taken 12/10/18] omeprazole 20 mg capsule,delayed release 20 mg PO DAILY GERD 12/03/18 [History Last Taken 03/11/19 05:00] hydrochlorothiazide 25 mg tablet 25 mg PO DAILY HTN 02/26/19 [History Last Taken Unknown] tizanidine 4 mg tablet 4 mg PO BID #16 tabs 01/25/20 [Rx Last Taken Unknown] furosemide 20 mg tablet 20 mg PO DAILY 04/11/23 [History Last Taken 04/11/23] potassium chloride 20 mEq tablet,extended release(part/cryst) (Klor-Con M) 20 meq PO DAILY 04/11/23 [History Last Taken 04/10/23] spironolactone 25 mg-hydrochlorothiazide 25 mg tablet 1 tab PO DAILY 04/11/23 [History Last Taken 04/10/23] Allergy/AdvReac Type Severity Reaction Status Date / Time No Known Allergies Allergy Verified 01/25/20 03:00 Social History Smoking Status: Never smoker ROS ROS ED ROS Narrative Pneumonia 2 weeks ago. Symptoms is since resolved. Right hand weakness today resolved. Dysarthria resolved. Review of Systems ROS Unobtainable: Denies due to encephalopathy Constitutional Constitutional ED: Denies chills or fever(s) Eyes Eyes: Denies blurry vision ENT ENT ED: Denies ear pain Cardiovascular Cardiovascular: Denies chest pain Respiratory/Chest Respiratory/Chest: Denies cough or dyspnea Gastrointestinal Gastrointestinal: Denies abdominal pain, nausea or vomiting Genitourinary Genitourinary ED: Denies dysuria or hematuria Musculoskeletal Musculoskeletal: Denies arthralgias or back pain Integumentary Denies abscess Neurologic Neurologic: Reports weakness; Denies headache(s) Psychiatric Psychiatric: Denies anxiety or depression Endocrine Endocrinology: Denies polydipsia Hematologic/Lymphatic Hematologic/Lymphatic: Denies easy bleeding or easy bruising Allergic/Immunologic Allergic/Immunologic ED: Denies mouth swelling or urticaria EXAM Physical Exam Narrative Exam Narrative: 83-year-old female vital signs are stable afebrile. Initial blood pressure is elevated at 216/100. She does not look septic toxic or in any distress. Neighbor present in room. HEENT exam unremarkable. No facial droop. Extraocular motions are intact. Normal speech. No trauma. Neck nontender. Lungs are clear. Heart regular rhythm rate about 95 no murmur. Chest wall nontender. Abdomen soft nontender. Moving all 4 extremities. Calves are nontender without edema or cords. 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 Dorsi plantarflexion intact. Neurologic exam normal. NIH is 0. Const Vital Signs: 04/11/23 10:37 04/11/23 10:45 04/11/23 10:58 Temperature 97.1 F L Temperature Source Temporal Pulse Rate 100 99 Respiratory Rate 18 26 H Blood Pressure 216/100 H 216/102 H Blood Pressure Mean 138 140 Pulse Ox 95 94 Oxygen Delivery Method Room Air Room Air 04/11/23 10:58 04/11/23 11:19 04/11/23 11:19 Temperature Temperature Source Pulse Rate 102 H 99 99 Respiratory Rate 25 H Blood Pressure 206/94 H 202/109 H 202/109 H Blood Pressure Mean 131 140 140 Pulse Ox 93 Oxygen Delivery Method Room Air 04/11/23 11:50 04/11/23 11:50 04/11/23 13:47 Temperature Temperature Source Pulse Rate 97 95 93 Respiratory Rate 26 H 27 H Blood Pressure 200/93 H 200/93 H 203/95 H Blood Pressure Mean 128 128 131 Pulse Ox 96 96 Oxygen Delivery Method Room Air Room Air 04/11/23 12:30 04/11/23 13:00 04/11/23 13:30 Temperature Temperature Source Pulse Rate 93 88 90 Respiratory Rate 24 H 18 18 Blood Pressure 203/95 H 206/89 H 215/99 H Blood Pressure Mean 131 128 137 Pulse Ox 96 96 95 Oxygen Delivery Method Room Air Room Air Room Air 04/11/23 14:00 04/11/23 14:30 04/11/23 15:00 Temperature Temperature Source Pulse Rate 89 92 89 Respiratory Rate 18 18 16 Blood Pressure 203/89 H 216/100 H 203/88 H Blood Pressure Mean 127 138 126 Pulse Ox 96 95 95 Oxygen Delivery Method Room Air Room Air Room Air Positive well nourished and well developed; Negative for obese, cachectic, contractures or unkempt General Appearance ED: well developed and NAD; Negative for unkempt, cachectic or contractures Nutritional Appearance: Negative for cachectic or obese HEENT Reports moist mucous membranes atraumatic; Negative for trauma Nose: Negative for other Eyes PERRL and EOMs intact bilaterally General Eye ED: Negative for pale conjunctiva, scleral icterus or other Neck no lymphadenopathy, supple and no JVD General: Negative for tenderness Thyroid: Negative for other Chest Wall inspection of chest normal and palpation of chest normal Chest: Negative for other Resp normal respiratory effort and clear to auscultation bilaterally Effort and Inspection: Negative for retractions Auscultation: Negative for rales, rhonchi or wheezes Cardio no murmurs Rate: regular rate Rhythm: regular rhythm GI normal to inspection, nondistended, normoactive bowel sounds, soft to palpation, non-tender, non-distended and no masses Inspection: Negative for abdominal distention Auscultation: normoactive bowel sounds Palpation: Negative for tender or guarding Bladder / Kidney Exam: No other Back/Spine no CVA tenderness General Back: Negative for CVA tenderness Cervical Spine: Negative for cervical spine tenderness Thoracic Spine / Upper Back: Negative for thoracic spinal tenderness Lumbar Spine / Lower Back: Negative for lumbar spinal tenderness Extremity normal to inspection General Extremety ED: Negative for deformity, edema or tenderness General Extremity: Negative for deformity or edema Neuro oriented x3 and CN's II-XII intact bilaterally Sensorium / Orientation: alert, oriented to person, oriented to place and orlin ented to time; Negative for orientation impaired or stuporous Speech: speech normal Gait (Neuro): Negative for normal gait Motor Exam: strength 5/5 throughout Psych mental status grossly normal Appearance: Negative for unkempt Attitude: No agitated Mood & Affect: Negative for depressed, anxious or tearful Skin no wounds General Skin Exam: Negative for jaundice Lesions: no lesions Rashes: no rashes Trauma: Negative for abrasion NIHSS NIHSS Initial: 1a Level of Consciousness: 0 1b LOC Questions (Score 2 if aphasic/stupor): 0 1c LOC Commands (Only score 1st attempt): 0 2 Best Gaze (If aphasic, use reflexive mvmts.): 0 3 Visual: 0 4 Facial Palsy: 0 5 Motor Arm Right (UN = amputation/fusion): 0 5 Motor Arm Left: 0 6 Motor Leg Right: 0 6 Motor Leg Left: 0 7 Limb ataxia (Only + if out of proportion): 0 8 Sensory (Aphasia/stupor=0 or 1, coma=2): 0 9 Best Language: 0 10 Dysarthria (mute, coma=2, intubated=UN): 0 11 Extinction and Inattention (only scored if +): 0 Total Score: 0 MDM MDM MDM Narrative Medical decision making narrative: Healthy 83-year-old female with known history of hypertension. Had symptoms at home today lasted about an half an hour that were consistent with a TIA and is now completely resolved. She had dysarthria and weakness in her right hand both of which are completely gone. She will undergo a stroke work-up with both a CT of her brain and CTA. I will speak to the hospitalist about admission. Repeat exam at 3:20 PM. Patient has no change in her NIH score which is still 0. She does have a mild headache she will be given Tylenol. I discussed with her test results and also with her neighbor at bedside. I also spoke to the hospitalist she will be admitted for a TIA. If possible we will get the MRI today if not they will do it tomorrow. History & Record Review Discussion w/independent historian: Patient and Friend Additional record(s) reviewed:: Prior inpatient record, Prior outpatient record, Prior ED visit and Prior labs Lab Data Attestation: I reviewed the patient's lab results. Lab results narrative: CBC shows a white count of 5.4. H&H of 11.9 and 36.9. Platelets 225. PT/INR are 14 and 1. PTT 27. Electrolytes show a gap of 5. BUN and creatinine of 27 and 1.7. Glucose of 151. Troponin is normal at 27. To prior labs these are his baseline anemia and renal insufficiency. Labs: Laboratory Results - last 24 hr 04/11/23 10:55 WBC 5.4 RBC 4.09 L Hgb 11.9 L Hct 36.9 L MCV 90.2 MCH 29.1 MCHC 32.2 RDW Std Deviation 43.0 RDW Coeff of Ignacio 13.2 Plt Count 225 MPV 10.0 Immature Gran % (Auto) 0.200 Neut % (Auto) 61.4 Lymph % (Auto) 25.6 Smith % (Auto) 10.2 H Eos % (Auto) 2.2 Baso % (Auto) 0.4 Absolute Neuts (auto) 3.3 Absolute Lymphs (auto) 1.38 Nucleated RBC % 0 PT 14.1 INR 1.1 APTT 27.4 Sodium 138 Potassium 4.8 Chloride 107 Carbon Dioxide 26.0 Anion Gap 5 BUN 27 H Creatinine 1.71 H Estim Creat Clear Calc 21.34 Est GFR (MDRD) Af Amer 37 L Est GFR (MDRD) Non-Af 30 L BUN/Creatinine Ratio 15.8 Glucose 151 H Calcium 9.0 Troponin I High Sens 27 Radiography Chest X-Ray - ED: 1 View, Read by ED Physician, Read by Radiologist, Lungs, Mediastinum, Bony Structures, No Acute Disease and Chronic Changes Diagnostic Testing: Clinical Impression(s) from Imaging Studies Chest X-Ray 04/11/23 10:49 IMPRESSION: Mild pulmonary vascular congestion and bibasilar atelectasis with trace right pleural effusion. Electronically Signed: Rae Garcia MD at 12:05 EDT , Head/Neck CTA 04/11/23 10:50 IMPRESSION: No acute intracranial process identified. Mild chronic small vessel ischemic gliosis. No evidence for significant stenosis or occlusion in the carotid or vertebral arteries of the neck. No evidence for large vessel occlusion or other focal vascular abnormality in the [place] region. Electronically Signed: Rae Garcia MD at 12:04 EDT , Chest x-ray, portable, single view, interpreted by myself shows normal cardiac silhouette. There is densities in the right lung field which appears chronic scarring. She is also had a recent pneumonia. There is no effusions. No masses noted. Rhythm Strip Rhythm Strip: Sinus Rhythm Rate: 94 Ectopy: None EKG Initial EKG: Attestation: I personally reviewed and interpreted this EKG as follows: Interpretation: Sinus Rhythm and No Acute Injury Pattern Comments: Normal sinus rhythm rate of 94. No acute signs of LA, ischemia or dysrhythmia. Discharge Plan Dx/Rx/DC Orders Clinical Impression: Brain TIA, History of hypertension Disposition Disposition: Acute Care Hospital [facility]
--- NOTE | 2023-04-11 15:33 | MRI_ITS ---
STUDY: MRI BRAIN WITHOUT CONTRAST REASON FOR EXAM: Female, 83 years old. TIA, word finding difficulty TECHNIQUE: Standardized multiplanar fat and water weighted pulse sequences were obtained. COMPARISON: CTA brain April 11, 2023 FINDINGS: Normal size of the ventricles and extra-axial spaces for the patient''s age. Moderate periventricular white matter ischemic changes without evidence for mass effect or restricted diffusion. Normal bilateral basal ganglia. 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 There is no extra-axial fluid accumulation. Normal flow voids within the major intracranial circulation suggesting patency by spin echo criteria. Partial empty sella deformity likely no significance. Normal, infundibular stalk, optic chiasm and hypothalamus. Normal tectal plate and pineal gland. Normal midbrain, yifan and medulla. Normal cerebellum. Normal basal cisterns. Normal bilateral temporal bones. Normal bilateral internal auditory canals. No demonstrated orbital abnormality, within the constraints of a routine brain study . Mild mucosal thickening left maxillary sinus. Normal calvarium and skull base. Normal visualized soft tissue structures. Normal visualized upper cervical spine. MRI/Brain without Contrast IMPRESSION: Moderate periventricular white matter ischemic change without evidence for acute infarct.. 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 Electronically Signed: Galen Marmolejo MD at 18:47 EDT ,
[2023-04-11] MEDS: Labetalol (Prefilled) 20 MG/4 ML IV (15:38)
[2023-04-11] MEDS: Ondansetron 4 MG/2 ML Vial IV (15:41)
[2023-04-11] MEDS: Acetaminophen 500 MG Tablet 1000 MG PO (15:41)
--- NOTE | 2023-04-11 15:51 | NURSING ---
102 NILAY TIA, HX OF HTN, CHRONIC ANEMIA, RENAL INSUFFICIENCY
--- NOTE | 2023-04-11 18:16 | HP.PCM.HOS_ITS ---
HPI - General General Date of Admission: 04/11/23 HPI Narrative HELADIO POLANCO, is a 83 F who presents to the hospital with what appears to be word finding issues as well as weakness in her right upper extremity. She is not a great historian but states that this morning she had difficulty gripping her coffee cup with her right hand and that she had difficulty taking her medications because of strength in her right arm. She also stated that she was having difficulty expressing her thoughts it is unclear whether or not she was having word finding issues or if she had difficulty forming the words unfortunately all of this was unwitnessed. She did have pneumonia about 2 weeks ago but work-up today in the ER is unremarkable. She does have an elevated creatinine of 1.71 however this does appear to be baseline over the last 2 to 3 months. She denies any urinary symptoms and her white count is unremarkable. She is afebrile, and chest x-ray does not demonstrate a consolidation. [facility] Medical History (Updated 04/11/23 @ 16:43 by Hermelinda Barbosa) Arthritis Chest pain Congestive heart failure (CHF) Hypertension Kidney disease Non-smoker Stroke/cerebrovascular accident Home Medications losartan 100 mg tablet 100 mg PO DAILY BP 12/03/18 [History Last Taken 12/10/18] omeprazole 20 mg capsule,delayed release 20 mg PO DAILY GERD 12/03/18 [History Last Taken 03/11/19 05:00] hydrochlorothiazide 25 mg tablet 25 mg PO DAILY HTN 02/26/19 [History Last Taken Unknown] furosemide 20 mg tablet 20 mg PO DAILY 04/11/23 [History Last Taken 04/11/23] potassium chloride 20 mEq tablet,extended release(part/cryst) (Klor-Con M) 20 meq PO DAILY 04/11/23 [History Last Taken 04/10/23] Allergy/AdvReac Type Severity Reaction Status Date / Time No Known Allergies Allergy Verified 01/25/20 03:00 Family History (Updated 04/11/23 @ 19:[address] Anthony Benites MD) Other Heart disease Surgical History (Updated 04/11/23 @ 19:[address] Anthony Benites MD) Status post total right knee replacement Social History Smoking Status: Never smoker ROS Constitutional Constitutional: Reports weakness; Denies chills, fatigue, fever(s) or malaise Eyes Eyes: Denies blurry vision ENT HEENT: Denies headache(s) or nasal discharge Cardiovascular Cardiovascular: Denies chest pain, dyspnea on exertion or syncope Respiratory/Chest Respiratory/Chest: Denies cough, shortness of breath at rest or shortness of breath with exertion Gastrointestinal Gastrointestinal: Denies constipation, diarrhea, nausea or vomiting Genitourinary Genitourinary: Denies dysuria Neurologic Neurologic: Reports abnormal speech; Denies focal weakness, numbness or tremor(s) Psychiatric Psychiatric: Denies anxiety or depression Vital Signs Vital Signs Vital Signs: 04/11/23 10:37 04/11/23 10:45 04/11/23 10:58 Temperature 97.1 F L Temperature Source Temporal Pulse Rate 100 99 Respiratory Rate 18 26 H Respiratory Effort Respiratory Depth Respiratory Pattern Blood Pressure 216/100 H 216/102 H Blood Pressure Mean 138 140 Blood Pressure Source Blood Pressure Position Blood Pressure Location Pulse Ox 95 94 Oxygen Delivery Method Room Air Room Air 04/11/23 10:58 04/11/23 11:19 04/11/23 11:19 Temperature Temperature Source Pulse Rate 102 H 99 99 Respiratory Rate 25 H Respiratory Effort Respiratory Depth Respiratory Pattern Blood Pressure 206/94 H 202/109 H 202/109 H Blood Pressure Mean 131 140 140 Blood Pressure Source Blood Pressure Position Blood Pressure Location Pulse Ox 93 Oxygen Delivery Method Room Air 04/11/23 11:50 04/11/23 11:50 04/11/23 13:47 Temperature Temperature Source Pulse Rate 97 95 93 Respiratory Rate 26 H 27 H Respiratory Effort Respiratory Depth Respiratory Pattern Blood Pressure 200/93 H 200/93 H 203/95 H Blood Pressure Mean 128 128 131 Blood Pressure Source Blood Pressure Position Blood Pressure Location Pulse Ox 96 96 Oxygen Delivery Method Room Air Room Air 04/11/23 12:30 04/11/23 13:00 04/11/23 13:30 Temperature Temperature Source Pulse Rate 93 88 90 Respiratory Rate 24 H 18 18 Respiratory Effort Respiratory Depth Respiratory Pattern Blood Pressure 203/95 H 206/89 H 215/99 H Blood Pressure Mean 131 128 137 Blood Pressure Source Blood Pressure Position Blood Pressure Location Pulse Ox 96 96 95 Oxygen Delivery Method Room Air Room Air Room Air 04/11/23 14:00 04/11/23 14:30 04/11/23 15:00 Temperature Temperature Source Pulse Rate 89 92 89 Respiratory Rate 18 18 16 Respiratory Effort Respiratory Depth Respiratory Pattern Blood Pressure 203/89 H 216/100 H 203/88 H Blood Pressure Mean 127 138 126 Blood Pressure Source Blood Pressure Position Blood Pressure Location Pulse Ox 96 95 95 Oxygen Delivery Method Room Air Room Air Room Air 04/11/23 15:30 04/11/23 15:48 04/11/23 16:00 Temperature 98.3 F 98.3 F Temperature Source Oral Pulse Rate 80 79 76 Respiratory Rate 16 18 14 Respiratory Effort Respiratory Depth Respiratory Pattern Blood Pressure 183/88 H 183/88 H 171/81 H Blood Pressure Mean 119 119 111 Blood Pressure Source Blood Pressure Position Blood Pressure Location Pulse Ox 93 94 94 Oxygen Delivery Method Room Air Room Air 04/11/23 17:11 04/11/23 17:31 Temperature 98.3 F Temperature Source Oral Pulse Rate 83 Respiratory Rate 16 Respiratory Effort Normal Non-Labored Respiratory Depth Normal Respiratory Pattern Normal Blood Pressure 186/93 H Blood Pressure Mean 124 Blood Pressure Source Monitor Blood Pressure Position Supine Blood Pressure Location Right Arm Pulse Ox 94 Oxygen Delivery Method Room Air Room Air Weight Weight: 180 lb 5.41 oz Body Mass Index (BMI) 31.9 Physical Exam Narrative General: Alert, Oriented x3, Cooperative, No apparent distress HEENT: Atraumatic, PERRLA, EOMI, Normocephalic Oral: Moist Mucosa Neck: Supple, No JVD Lungs: Diminished, Normal air movement, No rhonchi, No wheeze, No rales Cardiovascular: Regular rate, Regular Rhythm, Normal S1, Normal S2, No murmurs Abdomen: Soft, Non Tender, Non-Distended, No Hepato-splenomegaly Extremities: No edema, Capillary Refill Less than 3 Seconds Skin: No rashes, No breakdown Musculoskeletal: No Tenderness to Palpation of Joints or Extremities Neurological: Cranial nerves II-XII grossly intact, Motor Exam 5/5 strength throughout, Sensory exam intact to light touch and pain, word finding issues but does not appear to have abnormal speech Psych/Mental Status: Flat Results Lab / Micro Data 04/11/23 10:55 04/11/23 10:55 Labs: Laboratory Results - last 24 hr 04/11/23 10:55: WBC 5.4, RBC 4.09 L, Hgb 11.9 L, Hct 36.9 L, MCV 90.2, MCH 29.1, MCHC 32.2, RDW Std Deviation 43.0, RDW Coeff of Ignacio 13.2, Plt Count 225, MPV 10.0, Immature Gran % (Auto) 0.200, Neut % (Auto) 61.4, Lymph % (Auto) 25.6, Maury % (Auto) 10.2 H, Eos % (Auto) 2.2, Baso % (Auto) 0.4, Absolute Neuts (auto) 3.3, Absolute Lymphs (auto) 1.38, Nucleated RBC % 0, PT 14.1, INR 1.1, APTT 27.4, Sodium 138, Potassium 4.8, Chloride 107, Carbon Dioxide 26.0, Anion Gap 5, BUN 27 H, Creatinine 1.71 H, Estim Creat Clear Calc 21.34, Est GFR (MDRD) Af Amer 37 L, Est GFR (MDRD) Non-Af 30 L, BUN/Creatinine Ratio 15.8, Glucose 151 H, Calcium 9.0, Troponin I High Sens 27 Rhythm Strip Rhythm Strip: Sinus Rhythm Rate: 94 Ectopy: None Radiology Impression Chest X-Ray 04/11/23 10:49 IMPRESSION: Mild pulmonary vascular congestion and bibasilar atelectasis with trace right pleural effusion. Electronically Signed: Rae Garcia MD at 12:05 EDT , Head/Neck CTA 04/11/23 10:50 IMPRESSION: No acute intracranial process identified. Mild chronic small vessel ischemic gliosis. No evidence for significant stenosis or occlusion in the carotid or vertebral arteries of the neck. No evidence for large vessel occlusion or other focal vascular abnormality in the [place] region. Electronically Signed: Rae Garcia MD at 12:04 EDT , Assessment & Plan Assessment/Plan (1) Brain TIA: PLAN: Plan 1. TIA ? Unclear as to the etiology at this time, CTA of the head and neck was unremarkable ? Continue with aspirin and Lipitor as she is not on this at baseline ? We will obtain an MRI tonight hopefully and an echo in the morning ? We will allow for permissive hypertension and hold her home medications 2. HTN ? Blood pressures were elevated on admission so she will have as needed available through the stroke order set ? We will hold her home blood pressure medications until tomorrow morning 3. GERD ? Stable ? Continue with her PPI DVT: Ambulation Charges/Coding Visit Charges Inpatient E&M: 01209 Init Hosp L2
[2023-04-11] MEDS: Acetaminophen 325 MG Tablet 650 MG PO (20:35)
[2023-04-11] MEDS: Atorvastatin Calcium 40 MG Tablet PO (20:37)
[2023-04-12] VITALS (8 sets, daily range): BP systolic 113–182; BP diastolic 68–97; PULSE 70–89; RESP 16–20; TEMP 36.4–36.8; O2SAT 92–97; BMI 31.9
[2023-04-12] MEDS: Acetaminophen 325 MG Tablet 650 MG PO ×2 (03:38→07:21)
[2023-04-12] MEDS: traMADol 50 MG Tablet PO (05:24)
[2023-04-12] MEDS: 0.9% Saline Lock 10 ML Syringe IV (05:26)
[2023-04-12 06:39] LABS: Absolute Lymphocyte Count 1.56 X10^3/uL (0.83-4.51); Absolute Neutrophil Count 4.2 X10^3/uL (2.0-7.7); Basophil# 0.02 X10^3/uL; Basophil% 0.3 % (0-1); Eosinophil# 0.04 X10^3/uL; Eosinophils% 0.6 % (0-5); Hematocrit 32.7 % (37-47); Hemoglobin 10.4 g/dL (12.0-15.0); Lymphocyte # 1.56 X10^3/ul (0.83-4.51); Lymphocyte % 23.9 % (19-41); Mean Corp Hgb Conc 31.8 g/dL (32-36); Mean Corpuscular Hgb 28.3 pg (27.0-32.0); Mean Corpuscular Volume 89.1 fL (81-99); Mean Platelet Vol. 10.6 fl (6.2-12.0); Monocyte# 0.68 X10^3/uL; Monocyte% 10.4 % (0-10); NRBC Flagged by Analyzer 0 % (0-5); Neutrophil # 4.21 X10^3/uL (2.7-7.7); Neutrophil % 64.6 % (47-70); Platelet Count 233 K/mm3 (150-450); RBC Distribution Width CV 13.2 % (11.6-14.6); RBC Distribution Width SD 43.4 fl (35.1-43.9); Red Blood Count 3.67 M/mm3 (4.2-5.4); White Blood Count 6.5 K/mm3 (4.4-11.0)
[2023-04-12 07:18] LABS: Anion Gap 6 (5-15); BUN 30 mg/dL (7-18); BUN/Creat Ratio 13.9 RATIO (10-20); Calcium,Total 8.7 mg/dL (8.5-10.1); Chloride 105 mmol/L (98-107); Cholesterol 148 mg/dL (200); Creatinine, Serum 2.16 mg/dL (0.55-1.02); EST Glomerular Filtration Rate 23 mL/min (>60); Est Glom Filt Rate - Afr Amer 28 mL/min (>60); Glucose 101 mg/dL (74-106); High Density Lipoprotein 48 mg/dL; Sodium Level 136 mmol/L (136-145); Triglycerides 91 mg/dL; Very Low Density Lipoprotein 18 mg/dL (5-40)
[2023-04-12] MEDS: Aspirin 81 MG TAB.CHEW PO (07:22)
--- NOTE | 2023-04-12 10:04 | CT_ITS ---
We are attempting to reach an attending provider to discuss findings. An addendum with communication details will be sent when the communication is complete. INDICATION: stroke alert EXAMINATION: CT BRAIN - CT Head Stroke Protocol W/O Contrast Injection TECHNIQUE: Multiple axial images were obtained of the head without intravenous contrast. A radiation dose optimization technique was used for this scan. IV Contrast dosage and agent: None. RADIATION DOSAGE (If Supplied By Facility): CTDIvol = ( ) mGy, DLP = ( ) mGycm COMPARISON: MRI brain April 11, 2023 5:33 PM, CT angiogram head April 11, 2023, CT head May 08, 2017 FINDINGS: BRAIN PARENCHYMA: No intra- or extra-axial hemorrhage. No evidence of acute infarct. No intracranial mass or mass effect. There is preservation of the mendez/white matter interface. Posterior fossa structures are unremarkable. CSF SPACES: Appropriate for age. No hydrocephalus. Basal cisterns are patent. CALVARIUM, SKULL BASE, PARANASAL SINUSES AND MASTOID AIR CELLS: There is mild mucosal thickening of the left maxillary sinus. No discrete lytic or blastic abnormalities. ORBITS: Both globes, extraocular muscles, optic nerves and retrobulbar fat appear unremarkable. ASPECTS Score for Acute Strokes: 10 CT/STROKE Brain/Head without Cont IMPRESSION: Evidence of minor chronic involutional change stable head CT. No visualized acute hemorrhage infarct or edema. Electronically Signed: Day Jones MD at 10:22 EDT ,
--- NOTE | 2023-04-12 10:29 | NURSING ---
soc assessing patient with radilology called no change in ct md aware
--- NOTE | 2023-04-12 10:47 | PCM.DC.SUM ---
Providers Date of Admission: 04/11/23 Primary Care Physician: Dr. Shaina Bustamante MD Reason For Visit: R/O CVA Diagnosis Discharge Diagnosis (1) Brain TIA: Status: Acute Code(s): G45.9 - Transient cerebral ischemic attack, unspecified Medications at Discharge Home Medications omeprazole 20 mg capsule,delayed release 20 mg PO DAILY GERD 12/03/18 acetaminophen 325 mg tablet 650 mg (2 x 325 mg) PO Q4H PRN PRN Pain 1-10 Or Fever #0 tabs 04/12/23 aspirin 81 mg chewable tablet 81 mg PO BREAKFAST #0 tabs 04/12/23 atorvastatin 40 mg tablet 40 mg PO QHS #0 tabs 04/12/23 hydralazine 20 mg/mL injection solution 5 mg (0.25 mL) IV Q30M PRN to maintain BP goals #0 mL 04/12/23 labetalol 20 mg/4 mL (5 mg/mL) intravenous syringe 10 - 20 mg (2 - 4 mL) IV Q10M PRN PRN to Maintain BP Goals #0 mL 04/12/23 sodium chloride 0.9 % (flush) (BD PosiFlush Normal Saline 0.9 % injection syringe) 10 - 40 ml IV UD PRN Saline Flush #0 mL 04/12/23 Hospital Course Operations None Procedures None Summary of Care Provided Minutes Spent on Discharge: 60 Hospital Course: Patient presented on the with issues with word finding as well as weakness in her right upper extremity. Patient was stating that she was holding a cup or bottle and dropped. The patient came in here and was concerned of had a TIA and underwent work-up with CT of her head, CTA of the head and neck and an MRI of the brain. CTA of her head neck showed no acute intracranial process. Mild chronic small vessel ischemic gliosis. No evidence of significant stenosis or occlusion in the carotid or vertebral arteries of the neck. No evidence of LVO. Subsequent brain MRI performed later on the showed moderate periventricular white matter ischemic changes without evidence of acute infarct. 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 On the , it was noted that the patient was having some left-sided neglect, increased confusion. I was asked to evaluate the patient and patient was able to move all her extremities spontaneously but clearly had left field visual neglect as well as sensory deficits on her left side. Patient was having some difficulty naming objects on the [employer] forms. Stroke team was called and patient was sent for a stat head CT. The head CT showed minor chronic involutional changes but no acute hemorrhage or infarct or edema. Patient was seen by [facility] and patient continued to have left visual field deficits. Was having some ataxia on her left side and was having increased dysarthria compared to earlier in the day. CTA of the head neck was not performed as patient had worsening kidney function as her creatinine went up from 2.15 after the IV contrast that she had received on the . The neurologist, with her worsening symptoms, [place] [facility] [place] given her ongoing changes. Neurologist also did not recommend tPA at this time. I discussed the case with her brother, Oli Mc. He was apprised of her changes and recommendation by [facility]. He is agreeable to the transfer. There is no other context available at this time. Physical Exam Const Constitutional Narrative: Confused. Oriented x3. HEENT normocephalic HEENT Narrative: No facial droop Eyes Eyes Narrative: Unable to fully turn her eyes to the left. Extremity normal to inspection Neuro oriented x3, CN's II-XII intact bilaterally and moves all extremities Neuro Narrative: Ataxia of the left upper and left lower extremity. Worse with left side. Dysarthria and naming objects. When asked to speak this sentences, patient was only reading the right side of the page and not the left. Sensorium / Orientation: awake and alert Weight / BMI Weight Weight: 81.8 kg Body Mass Index (BMI) 31.9 ABG / Lab / Microbiology Data 04/12/23 05:06 04/12/23 05:06 Laboratory: Laboratory Results - last 24 hr 04/11/23 10:55: WBC 5.4, RBC 4.09 L, Hgb 11.9 L, Hct 36.9 L, MCV 90.2, MCH 29.1, MCHC 32.2, RDW Std Deviation 43.0, RDW Coeff of Ignacio 13.2, Plt Count 225, MPV 10.0, Immature Gran % (Auto) 0.200, Neut % (Auto) 61.4, Lymph % (Auto) 25.6, [place] % (Auto) 10.2 H, Eos % (Auto) 2.2, Baso % (Auto) 0.4, Absolute Neuts (auto) 3.3, Absolute Lymphs (auto) 1.38, Nucleated RBC % 0, PT 14.1, INR 1.1, APTT 27.4, Sodium 138, Potassium 4.8, Chloride 107, Carbon Dioxide 26.0, Anion Gap 5, BUN 27 H, Creatinine 1.71 H, Estim Creat Clear Calc 21.34, Est GFR (MDRD) Af Amer 37 L, Est GFR (MDRD) Non-Af 30 L, BUN/Creatinine Ratio 15.8, Glucose 151 H, Calcium 9.0, Troponin I High Sens 27 04/12/23 05:06: WBC 6.5, RBC 3.67 L, Hgb 10.4 L, Hct 32.7 L, MCV 89.1, MCH 28.3, MCHC 31.8 L, RDW Std Deviation 43.4, RDW Coeff of Ign[place] 13.2, Plt Count 233, MPV 10.6, Immature Gran % (Auto) 0.200, Neut % (Auto) 64.6, Lymph % (Auto) 23.9, [place] % (Auto) 10.4 H, Eos % (Auto) 0.6, Baso % (Auto) 0.3, Absolute Neuts (auto) 4.2, Absolute Lymphs (auto) 1.56, Nucleated RBC % 0, Sodium 136, Potassium 5.0, Chloride 105, Carbon Dioxide 25.0, Anion Gap 6, BUN 30 H, Creatinine 2.16 H, Estim Creat Clear Calc 16.90, Est GFR (MDRD) Af Amer 28 L, Est GFR (MDRD) Non-Af 23 L, BUN/Creatinine Ratio 13.9, Glucose 101, Calcium 8.7, Triglycerides 91, Cholesterol 148, LDL Cholesterol 82, VLDL Cholesterol 18, HDL Cholesterol 48 Radiography Diagnostic Testing: Radiology Impression Chest X-Ray 04/11/23 10:49 IMPRESSION: Mild pulmonary vascular congestion and bibasilar atelectasis with trace right pleural effusion. Electronically Signed: Rae Garcia MD at 12:05 EDT , Head/Neck CTA 04/11/23 10:50 IMPRESSION: No acute intracranial process identified. Mild chronic small vessel ischemic gliosis. No evidence for significant stenosis or occlusion in the carotid or vertebral arteries of the neck. No evidence for large vessel occlusion or other focal vascular abnormality in the [place] region. Electronically Signed: Rae Garcia MD at 12:04 EDT , Brain MRI 04/11/23 15:33 IMPRESSION: Moderate periventricular white matter ischemic change without evidence for acute infarct.. 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 Electronically Signed: Galen Marmolejo MD at 18:47 EDT , Brain CT 04/12/23 10:04 IMPRESSION: Evidence of minor chronic involutional change stable head CT. No visualized acute hemorrhage infarct or edema. Electronically Signed: Day Jones MD at 10:22 EDT , ADDENDUM: 04/12/23 1035 IMPRESSION: Evidence of minor chronic involutional change stable head CT. No visualized acute hemorrhage infarct or edema. N.B. : The above Results were Read Back by Day Jones MD to Susan Villarreal RN, and understanding confirmed on 04/12/2023 10:28:13 (ET). Electronically Signed: Day Jones MD at 10:22 EDT , Meaningful Use Info Meaningful Use Diagnoses (Choose all that apply): Ischemic CVA CVA Therapy Assessed for PT,OT and/or ST?: Yes Ischemic Stroke Antithrombotic order at d/c?: No Reason antithrombotic not ordered: Treatment not Indicated Dx of Atrial fib/flutter?: No Anticoagulant at discharge?: No Reason anticoagulant not ordered: Treatment not Indicated Statins at discharge?: Yes Primary Dx Acute Ischemic CVA?: Yes IV thrombolytic ordered during stay?: No Reason IV thrombolytic not ordered: Treatment not Indicated Discharge Plan Admission Admit Date/Time: 04/11/23 18:12 Primary Reason for Your Visit: CVA Attending Provider: Parish Feliz Primary Care Provider: Shaina Bustamante Consulting Providers: Anthony Benites Discharge Orders/Prescriptions Prescriptions: New sodium chloride 0.9 % (flush) [BD PosiFlush Normal Saline 0.9] Syringe 10 - 40 ml IV UD PRN (Reason: Saline Flush) Qty: 0 0RF atorvastatin 40 mg Tablet 40 mg PO QHS Qty: 0 0RF acetaminophen 325 mg Tablet 650 mg PO Q4H PRN PRN (Reason: Pain 1-10 Or Fever) Qty: 0 0RF hydralazine 20 mg/mL Solution 5 mg IV Q30M PRN (Reason: to maintain BP goals) Qty: 0 0RF aspirin 81 mg Tablet,Chewable 81 mg PO BREAKFAST Qty: 0 0RF labetalol 20 mg/4 mL (5 mg/mL) Syringe 10 - 20 mg IV Q10M PRN PRN (Reason: to Maintain BP Goals) Qty: 0 0RF Continued omeprazole 20 MG capsule,delayed release(DR/EC) 20 mg PO DAILY Discontinued losartan 100 MG tablet 100 mg PO DAILY hydrochlorothiazide 25 MG tablet 25 mg PO DAILY furosemide 20 mg tablet 20 mg PO DAILY Patient Comments: TAKE 1 TABLET BY MOUTH ONCE TODAY, TWICE TOMORROW THEN DAILY potassium chloride [Klor-Con M20] 20 mEq tablet,ER particles/crystals 20 meq PO DAILY Patient Comments: TAKE 1 TABLET BY MOUTH ARCELIA TIME YOU TAKE A FUROSEMIDE Referrals / Follow Up: Shaina Bustamante MD [Primary Care Provider] - Disposition Disposition (needs filled in before D/C Order can be placed): Acute Care Hospital Charges/Coding Visit Charges Inpatient E&M: 90149 Disch Hosp >30min
--- NOTE | 2023-04-12 11:09 | NURSING ---
consent for transfer signed sister in law and neighbor present 5 rings and cell phone went home with sister in law
--- NOTE | 2023-04-12 11:10 | NURSING ---
MADHU Cr rn att transfer line given report states no report needed to nurse in er patient will go directly to er
--- NOTE | 2023-04-12 11:14 | NURSING ---
0952 noted left sided neglect notified of change stroke alert called maya down to ct
--- NOTE | 2023-04-12 11:42 | CASEMGMT ---
SW did not complete a PHQ 9 with patient as she is being transferred to [facility]. Payton Rachel [employer]
== END 2023-04-12 10:57 | disposition short-term general hospital (02) ==
LOC: ED 12:07 → PCU 15:59
PROVIDERS: Admitting Provider Family Medicine; Emergency Provider Emergency Medicine; PCP Family Medicine
DX: G45.9 Transient cerebral ischemic attack, unspecified (principal); I11.0 Hypertensive heart disease with heart failure; I50.9 Heart failure, unspecified; R27.0 Ataxia, unspecified; R47.01 Aphasia; R47.1 Dysarthria and anarthria; R29.898 Other symptoms and signs involving the musculoskeletal system; Z79.899 Other long term (current) drug therapy; R29.700 NIHSS score 0; Z87.09 Personal history of other diseases of the respiratory system; K21.9 Gastro-esophageal reflux disease without esophagitis
CPT/HCPCS: 36415; 70450; 70496; 70498; 70551; 71045; 80048; 80061; 84484; 85025; 85610; 85730; 92523; 93005; 94762; 96374; 96375; 97162; 97166; 99221; 99285; J7030; Q9957; Q9967; A4216; G0378; J2405

== ENCOUNTER → 2023-04-24 | Outpatient (CLI) | payer MEDICARE, OTHER, SELFPAY ==
[2023-04-24 18:41] LABS: ALB/GLOB Ratio 1.2 RATIO (0.9-2.4); AST(SGOT) 22 U/L (15-37); Alanine Aminotransfer ALT/SGPT 29 U/L (13-56); Alkaline Phosphatase 82 U/L (45-117); Anion Gap -1 (5-15); BUN 44 mg/dL (7-18); BUN/Creat Ratio 20.8 RATIO (10-20); Chloride 111 mmol/L (98-107); Creatinine, Serum 2.12 mg/dL (0.55-1.02); EST Glomerular Filtration Rate 24 mL/min (>60); Est Glom Filt Rate - Afr Amer 29 mL/min (>60); Globulin 3.4 g/dL (2.2-4.2); Glucose 146 mg/dL (74-106); Potassium 4.8 mmol/L (3.5-5.1); Protein, Total 7.4 g/dL (6.4-8.2); Sodium Level 136 mmol/L (136-145)
== END | disposition home or self-care (01) ==
LOC: MFPLAB 14:42
PROVIDERS: PCP Family Medicine; Visit Provider Family Medicine
DX: G45.9 Transient cerebral ischemic attack, unspecified (principal)
CPT/HCPCS: 36415; 80053

== ENCOUNTER → 2023-06-01 | Outpatient (CLI) | payer MEDICARE, OTHER, SELFPAY ==
--- NOTE | 2023-06-01 12:03 | BI_ITS ---
MAMMOGRAPHY - BILATERAL SCREENING REASON FOR EXAM: Female, 83 years old. Routine annual screening examination. PERTINENT HISTORY: Non-contributory. TECHNIQUE: Digital bilateral breast manisha (3D mammographic acquisition) in the CC and MLO projections. 2-D mediolateral oblique (MLO) and craniocaudad (CC) views of both breasts were obtained. CAD: Full Field Digital Mammography with Computer Added Detection was performed. COMPARISON: Comparison is made with prior examination number 22/03/2022 and October 25, 2021. FINDINGS: Breast Composition: The breasts are heterogeneously dense, which may obscure small masses. There are no dominant masses or suspicious calcifications. Stable 1 cm nodular density best seen on the cranial caudal view On the medial aspect of the right breast. No other significant abnormalities are identified. There has been no significant change since the prior study. BI/SCRN MAMM (CAD)W/MANISHA BILAT IMPRESSION: Stable bilateral screening mammogram. Yearly follow-up mammogram recommended. (A) ASSESSMENT CATEGORY: BIRADS Category 2: Benign. A letter regarding these results will be sent to the patient by the facility within 30 days. Approximately 10% of breast cancers are not detected by mammography. A normal mammogram should not delay biopsy of a clinically suspicious abnormality. [id number] Electronically Signed: Cortes Crenshaw MD at 13:08 EST ,
== END | disposition home or self-care (01) ==
LOC: OPBI 12:02
PROVIDERS: PCP Family Medicine; Referring Provider Family Medicine; Visit Provider Family Medicine
DX: Z12.31 Encounter for screening mammogram for malignant neoplasm of breast (principal)
CPT/HCPCS: 77063; 77067

== ENCOUNTER → 2023-06-02 | Outpatient (CLI) | payer MEDICARE, OTHER, SELFPAY ==
[2023-06-02 17:52] LABS: Absolute Lymphocyte Count 1.28 X10^3/uL (0.83-4.51); Absolute Neutrophil Count 1.9 X10^3/uL (2.0-7.7); Basophil# 0.03 X10^3/uL; Basophil% 0.8 % (0-1); Eosinophil# 0.14 X10^3/uL; Eosinophils% 3.6 % (0-5); Hematocrit 33.5 % (37-47); Hemoglobin 10.6 g/dL (12.0-15.0); Lymphocyte # 1.28 X10^3/ul (0.83-4.51); Lymphocyte % 33.2 % (19-41); Mean Corp Hgb Conc 31.6 g/dL (32-36); Mean Corpuscular Hgb 28.6 pg (27.0-32.0); Mean Corpuscular Volume 90.3 fL (81-99); Mean Platelet Vol. 11.3 fl (6.2-12.0); Monocyte# 0.45 X10^3/uL; Monocyte% 11.7 % (0-10); NRBC Flagged by Analyzer 0 % (0-5); Neutrophil # 1.94 X10^3/uL (2.7-7.7); Neutrophil % 50.4 % (47-70); Platelet Count 190 K/mm3 (150-450); RBC Distribution Width CV 13.4 % (11.6-14.6); RBC Distribution Width SD 44.6 fl (35.1-43.9); Red Blood Count 3.71 M/mm3 (4.2-5.4); White Blood Count 3.9 K/mm3 (4.4-11.0)
[2023-06-02 18:13] LABS: ALB/GLOB Ratio 1.2 RATIO (0.9-2.4); AST(SGOT) 17 U/L (15-37); Alanine Aminotransfer ALT/SGPT 29 U/L (13-56); Albumin, Serum 3.8 g/dL (3.2-5.0); Alkaline Phosphatase 79 U/L (45-117); Anion Gap 5 (5-15); BUN 56 mg/dL (7-18); BUN/Creat Ratio 25.3 RATIO (10-20); Calcium,Total 8.9 mg/dL (8.5-10.1); Chloride 111 mmol/L (98-107); Creatinine, Serum 2.21 mg/dL (0.55-1.02); EST Glomerular Filtration Rate 23 mL/min (>60); Est Glom Filt Rate - Afr Amer 27 mL/min (>60); Globulin 3.2 g/dL (2.2-4.2); Glucose 117 mg/dL (74-106); Potassium 5.7 mmol/L (3.5-5.1); Sodium Level 138 mmol/L (136-145)
== END | disposition home or self-care (01) ==
LOC: MFPLAB 14:27
PROVIDERS: PCP Family Medicine; Visit Provider Family Medicine
DX: Z01.818 Encounter for other preprocedural examination (principal)
CPT/HCPCS: 36415; 80053; 85025

== ENCOUNTER → 2023-06-07 | Outpatient (CLI) | payer MEDICARE, OTHER, SELFPAY ==
[2023-06-07 15:00] LABS: Absolute Lymphocyte Count 1.33 X10^3/uL (0.83-4.51); Absolute Neutrophil Count 2.2 X10^3/uL (2.0-7.7); Basophil# 0.02 X10^3/uL; Basophil% 0.5 % (0-1); Eosinophil# 0.12 X10^3/uL; Eosinophils% 2.9 % (0-5); Hematocrit 31.3 % (37-47); Hemoglobin 10.4 g/dL (12.0-15.0); Lymphocyte # 1.33 X10^3/ul (0.83-4.51); Lymphocyte % 32.7 % (19-41); Mean Corp Hgb Conc 33.2 g/dL (32-36); Mean Corpuscular Hgb 29.8 pg (27.0-32.0); Mean Corpuscular Volume 89.7 fL (81-99); Mean Platelet Vol. 11.3 fl (6.2-12.0); Monocyte% 9.8 % (0-10); NRBC Flagged by Analyzer 0 % (0-5); Neutrophil # 2.19 X10^3/uL (2.7-7.7); Neutrophil % 53.9 % (47-70); Platelet Count 167 K/mm3 (150-450); RBC Distribution Width CV 13.5 % (11.6-14.6); RBC Distribution Width SD 44.4 fl (35.1-43.9); Red Blood Count 3.49 M/mm3 (4.2-5.4); White Blood Count 4.1 K/mm3 (4.4-11.0)
[2023-06-07 15:36] LABS: Anion Gap 4 (5-15); BUN 50 mg/dL (7-18); BUN/Creat Ratio 23.7 RATIO (10-20); Calcium,Total 8.8 mg/dL (8.5-10.1); Chloride 112 mmol/L (98-107); Creatinine, Serum 2.11 mg/dL (0.55-1.02); EST Glomerular Filtration Rate 24 mL/min (>60); Est Glom Filt Rate - Afr Amer 29 mL/min (>60); Ferritin 196 ng/mL (8-252); Glucose 131 mg/dL (74-106); Iron 198 ug/dL (50-170); Iron Binding Capacity,Total 271 ug/dL (250-450); Potassium 5.4 mmol/L (3.5-5.1); Sodium Level 138 mmol/L (136-145)
== END | disposition home or self-care (01) ==
LOC: MFPLAB 12:11
PROVIDERS: PCP Family Medicine; Visit Provider Family Medicine
DX: E87.5 Hyperkalemia (principal); D64.9 Anemia, unspecified
CPT/HCPCS: 36415; 80048; 82728; 83540; 83550; 85025

== ENCOUNTER → 2023-06-30 | Outpatient (CLI) | payer MEDICARE, OTHER, SELFPAY ==
--- OUTSIDE RECORDS SUMMARY | 2023-06-30 10:42 | XMS RPT_ITS | CCD ---
Author Name Unknown Address [address] [place] [address] Organization [facility] Care Team Providers Care Textile Machine Mechanic Name Role Phone Shaina Snyder MD Primary Care Provider [phone] PATRICIO LING Admitting Unavailable PATRICIO LING Attending Unavailable SHAINA SNYDER Primary Care Unavailable SYSTEM, PROVIDER NOT IN Referring Unavaila ble Medications Current Medications Medication Drug Class(es) Dates Sig (Normalized) Sig (Original) atorvastatin 40 mg oral tablet (2 sources) HMG-CoA Reductase Inhibitor Start: 3 End: 4 take 1 tablet by mouth at bedtime Atorvastatin 40 MG tablet Take 1 tablet by mouth at bedtime. 30 tablet 2 04/14/2023 07/13/2023 Active glimepiride 1 mg oral tablet (1 source) Sulfonylurea Start: 8 take 1 tablet by mouth once daily gliMEPIride 1 MG Tab TAKE 1 TABLET BY MOUTH DAILY 1 11/15/2017 Active hydroCHLOROthiazide 25 mg / spironolactone 25 mg oral tablet (1 source) Thiazide Diuretic, Aldosterone Antagonist Start: 3 take 1 tablet by mouth once daily spironolactone-hy drochlorothiazide 25-25 MG per tablet Take 1 tablet by mouth daily. 0 04/06/2023 Active levETIRAcetam 500 mg oral tablet (2 sources) Start: 3 End: 4 take 1 tablet by mouth every twelve hours levETIRAcetam 500 MG tablet Take 1 tablet by mouth every 12 hours. 60 tablet 2 04/14/2023 07/13/2023 Active 24 hr NIFEdipine 30 mg extended release oral tablet (2 sources) Dihydropyridine Calcium Channel Deepali Start: 3 End: take 1 tablet by mouth once daily NIFEdipine 30 MG Tab SR 24 HR Take 1 tablet by mouth daily. 30 tablet 2 04/17/2023 07/16/2023 Active Completed/Discontinued Medications Medication Drug Class(es) Dates Sig (Normalized) Sig (Original) Acetaminophen (1 source) Start: 04-12-20 End: 04-16-20 take 1 tablet by mouth every four hours as needed Acetaminophen (TYLENOL) tablet 325 mg 1 ml heparin sodium, porcine 5000 unt/ml prefilled syringe (1 source) Unfractionated Heparin, Anti-coagulant Start: 04-12-20 End: 04-16-20 Heparin injection 5,000 Units hydrALAZINE (APRESOLINE) injection 10 mg (1 source) Start: 04-12-20 End: 04-16-20 take 10 mg intravenously every hour as needed hydrALAZINE (APRESOLINE) injection 10 mg hydroCHLOROthiazide 25 mg oral tablet (1 source) Thiazide Diuretic Start: 04-15-20 End: 04-16-20 hydroCHLOROthiazide (HYDRODIURIL) tablet 25 mg iohexol (OMNIPAQUE) 350 MG/ML injection 1-171 mL (2 sources) Start: 04-12-20 End: 04-12-20 iohexol (OMNIPAQUE) 350 MG/ML injection 1-171 mL Problems Active Problems Problem Classification Problem Date Documented Date Episodic/Chronic Acute cerebrovascular disease (5 sources) Cerebrovascular accident; Translations: [Cerebral infarction, unspecified] Onset: 04-12-2023 04-13-2023 Chronic Deficiency and other anemia (2 sources) Anemia; Translations: [Anemia, unspecified] Onset: 04-12-2023 04-12-2023 Episodic Epilepsy; convulsions (3 sources) Seizure; Translations: [Unspecified convulsions] Onset: 04-12-2023 04-14-2023 Episodic Fluid and electrolyte disorders (2 sources) Disorder of electrolytes; Translations: [Other disorders of electrolyte and fluid balance, not elsewhere classified] Onset: 04-12-2023 04-12-2023 Episodic Other diseases of kidney and ureters (2 sources) Kidney disease; Translations: [Disorder of kidney and ureter, unspecified] Onset: 04-12-2023 04-12-2023 Episodic Past or Other Problems Problem Classification Problem Date Documented Da te Episodic/Chronic Unclassified (1 source) Onset: 04-16-2023 04-16-2023 Results Test Name Value Interpretation Reference Range Facil ity Vital Signs Date Time Vital Sign Value Performing Clinician Faci litprem 04-16-2023 08:37-0400 Body temperature 97.9 [degF] Elton Zuluaga MD Work Phone: [facility] 04-16-2023 08:37-0400 Diastolic blood pressure 66 mm[Hg] Elton Zuluaga MD Work Phone: [facility] 04-16-2023 08:37-0400 Heart rate 79 /min Elton Zuluaga MD Work Phone: [facility] 04-16-2023 08:37-0400 Respiratory rate 16 /min Elton Zuluaga MD Work Phone: [facility] 04-16-2023 08:37-0400 SaO2% (BldA) [Mass fraction] 97 % Elton Zuluaga MD Work Phone: [facility] 04-16-2023 08:37-0400 Systolic blood pressure 147 mm[Hg] Elton Zuluaga MD Work Phone: [facility] 04-13-2023 10:57-0400 Body height 160 cm Elton Zuluaga MD Work Phone: [facility] 04-13-2023 10:57-0400 Body mass index (BMI) [Ratio] 33.01 kg/m2 Elton Zuluaga MD Work Phone: [facility] 04-13-2023 10:57-0400 Body weight 84.5 kg Elton Zuluaga MD Work Phone: [facility] Encounters Encounter Date Encounter Type Care Provider Facility Start: 04-12-2023 End: 04-16-2023 Evaluation and management of inpatient [facility] Facility:[facility] Start: 04-12-2023 End: 04-16-2023 Evaluation and management of inpatient Elton Zuluaga MD Work Phone: [id number] Procedures Date Procedure Procedure Detail Performing Clinician Start: 04-16-2023 Blood count platelet automated Nissa Ramirez PUBLIC HEALTH NURSE-[employer] Work Phone: Start: 04-15-2023 Electrolyte panel Sussy Ramirez PUBLIC HEALTH NURSE-[employer] Work Phone: Start: 04-14-2023 Creatinine other source Ben Murphy PUBLIC HEALTH NURSE-[employer] Work Phone: Start: 04-14-2023 Creatinine blood Sangita Murphy PUBLIC HEALTH NURSE-[employer] Work Phone: Start: 04-14-2023 GENERAL PROCEDURE Vianey Bo DO Work Phone: Start: 04-14-2023 Electrolyte panel Sussy Stafford Ashley [employer] HEALTH NURSE-[employer] Work Phone: Start: 04-13-2023 Echo tthrc r-t 2d w/wom-mode compl spec&colr d Nissa Ramirez PUBLIC HEALTH NURSE-[employer] Work Phone: Start: 04-13-2023 Mri brain brain stem w/o contrast material Nissa Ramirez PUBLIC HEALTH NURSE-[employer] Work Phone: Start: 04-13-2023 Hemoglobin glycosyla los a1c Nissa Ramirez PUBLIC HEALTH NURSE-[employer] Work Phone: Start: 04-13-2023 Hepatic function panel Nissa Ramirez PUBLIC HEALTH NURSE-[employer] Work Phone: Start: 04-12-2023 Drug tst prsmv instr mnt chem analyzers pr date Philippe Cedillo MD Work Phone: Start: 04-12-2023 EXTRA MICRO Nissa Ramirez PUBLIC HEALTH NURSE-[employer] Work Phone: Start: 04-12-2023 EXTRA TUBES Patricio velez MD Work Phone: Start: 04-12-2023 EXTRA URINE Patricio velez MD Work Phone: Start: 04-12-2023 Urinalysis microscop ic only Philippe Cedillo MD Work Phone: Start: 04-12-2023 URINALYSIS REFLEX TO CULTURE Nissa Ramirez [facility] NURSE[facility] Work Phone: Start: 04-12-2023 Urnls dip stick/tabl et rgnt auto w/o microscopy Philippe Cedillo MD Work Phone: Start: 04-12-2023 IP CONSULT TO SPEECH THERAPY Nissa Ramirez [facility] HE[facility] NURSE-[facility] Work Phone: Start: 04-12-2023 Cerebral perfusion a nalys ct w/blood flow&volume Philippe Cedillo MD Work Phone: Start: 04-12-2023 End: 04-12-2023 Ct angiography head w/contrast/noncontrast Philippe Cedillo MD Work Phone: Start: 04-12-2023 Assay of magnesium Kleber Ramirez [facility] NURSE[facility] Work Phone: Start: 04-12-2023 CBC AND ELECTRONIC DIFF Philippe Cedillo MD Work Phone: Start: 04-12-2023 Complete blood count with white cell differential, automated Philippe Cedillo MD Work Phone: Start: 04-12-2023 Hepatic function panel Philippe Cedillo MD Work Phone: Start: 04-12-2023 LAVENDER TOP TUBE Tom Cedillo MD Work Phone: Start: 04-12-2023 LT BLUE TOP TUBE Tam Cedillo MD Work Phone: Start: 04-12-2023 MINT GREEN TOP TUBE Ronak Cedillo MD Work Phone: Plan of Treatment Date Care Activity Detail Author Start: 04-15-2026 Tetanus vaccination TETANUS [facility] Start: 04-15-2024 Potassium [Moles/vol ume] in Serum or Plasma POTASSIUM [facility] Start: 03-03-2023 Influenza vaccination INFLUENZA VACC INE (#1) [facility] Start: 08-19-2022 COVID-19 VACCINE (3 - Mixed Product series) COVID-19 VACCINE (3 - Mixed Product series) [facility] Start: 04-13-2016 Pneumococcal vaccination PNEUM OCOCCAL VACCINE SERIES (2 - PPSV23 or PCV20) [facility] Start: 1992 Zoster vaccine hzv l ruben for subcutaneous use ZOSTER (SHINGLES) VACCINE (1 of 2) [facility] Start: 1987 Screening for malign ant neoplasm of colon COLORECTAL CANCER SCREENING DISCUSSION [facility] Start: 1982 Screening for malign ant neoplasm of breast MAMMOGRAM SCREENING DISCUSSION [facility] Start: 1963 Screening for malign ant neoplasm of cervix CERVICAL CANCER SCREENING DISCUSSION [facility] Start: 1942 Screening for osteoporosis DEXA SCAN DISCUSSION [facility] End: 04-12-2023 GOLD TOP TUBE [facility] Immunizations Immunization Date Immunization Notes Care Provider Fa yvette 04-18-2022 influenza virus vaccine, unspecified formulation Elton Zuluaga MD Work Phone: [facility] Payers Date Payer Category Payer Private Health Insurance [id number] 2022 Unknown GENERIC PAYOR ME DICARE SUPPLEMENT [id number] 2022-Present [phone] [address] [address] [place] [address] [id number] 2017 Medicare MEDICARE MEDICAR E A AND B [id number] 2017-Present [address] [place] [address] [id number] 2017 Medicare [id number] 1940 Unknown [id number] Social History Date Type Detail Facility Start: 12-20-2017 Tobacco smoking stat us NHIS Never smoked tobacco [facility] Start: 12-20-2017 Tobacco use and exposure Smokeless tobacco non-user [facility] Start: 12-22-2018 History of Social function [facility] Start: 12-22-2018 Tobacco use panel [facility] Start: 1940 Sex Assigned At Not on file [facility] Start: 11-22-2017 Gender identity Identifies as female gender (finding) [facility] Clinical Notes 04-12-2023 to 04-16-2023 Nursing Notes - Juliana Grossman RN - 04/16/2023 11:02 AM EDTNursing Notes - Juliana Grossman RN - 04/16/2023 11:02 AM EDTPlan of Care - Juliana Grossman RN - 04/16/2023 9:58 AM EDTDischarge Instructions Note Date & Type Note Facility 04-16-2023 Nurse Note AVS and WALLACE faxed to , and report called. [facility] 04-16-2023 Miscellaneous Notes AVS and WALLACE faxed to , and report called. Problem: Patient Care Overview Goal: Plan of Care Review Outcome: Adequate for Discharge Goal: Individualization & Mutuality Outcome: Adequate for Discharge Goal: Discharge Needs Assessment Outcome: Adequate for Discharge Goal: Interdisciplinary Rounds/Family Conf Outcome: Adequate for Discharge Problem: Dysphagia (Adult) Goal: Identify Related Risk Factors and Signs and Symptoms Description: Related risk factors and signs and symptoms are identified upon initiation of Human Response Clinical Practice Guideline (CPG) Outcome: Adequate for Discharge Goal: Functional/Safe Swallow Description: Patient will demonstrate the desired outcomes by discharge/transition of care. Outcome: Adequate for Discharge Goal: Compensatory Techniques to Improve Safety/Function with Swallowing Description: Patient will demonstrate the desired outcomes by discharge/transition of care. Outcome: Adequate for Discharge Problem: Stroke (Ischemic) (Adult) Goal: Signs and Symptoms of Listed Potential Problems Will be Absent, Minimized or Managed (Stroke) Description: Signs and symptoms of listed potential problems will be absent, minimized or managed by discharge/transition of care (reference Stroke (Ischemic) (Adult) CPG). Outcome: Adequate for Discharge Problem: PT - Balance/Coordination/Neuro Re-Education Goal: Standing Dynamic/Static Balance Description: Pt will perform standing balance tasks for 8 minutes with supervision assistance with least restrictive device in order to improve functional mobility and safety with standing tasks. Outcome: Adequate for Discharge Problem: PT - Mobility Goal: Ambulation Description: Pt will ambulate 125 feet with least restrictive device with supervision to improve ability to navigate home environment. Outcome: Adequate for Discharge Problem: PT - Transfers Goal: Supine <-> Sit Description: Pt will perform bed mobility with flat bed & no rail with supervision in order to improve functional mobility and safety. Outcome: Adequate for Discharge Goal: Sit <-> Stand Description: Pt will perform sit to/from stand transfers with supervision with least restrictive device in order to improve functional mobility and safety. Outcome: Adequate for Discharge Problem: OT - ADLs Goal: Grooming Description: Pt will complete grooming in standing with independence for improved ability to safely complete ADLs. Outcome: Adequate for Discharge Goal: Toileting Description: Pt will complete toileting task including clothing management with supervision for improved ability to safely complete self-care activities. Outcome: Adequate for Discharge Goal: Bathing Description: Pt will perform full body bathing/dressing routine with modified independence while seated for improved ability to complete self-care activities. Outcome: Adequate for Discharge Problem: OT - Cognition Goal: Cognition Home Maintenance Description: Pt will complete simulated home maintenance task (medication management, finance management, etc.) with independence to promote safety and success at discharge destination. Outcome: Adequate for Discharge Problem: OT - Strength/ROM Goal: Strength/ROM ADL Participation Description: Pt will demonstrate independence with UE exercise program to prevent deconditioning while in the hospital and to maximize UE ROM/coordination/strength for ADL participation. Outcome: Adequate for Discharge Problem: PT - Balance/Coordination/Neuro Re-Education Goal: Standing Dynamic/Static Balance Description: Pt will perform standing balance tasks for 8 minutes with supervision assistance with least restrictive device in order to improve functional mobility and safety with standing tasks. Outcome: Met This Shift Problem: PT - Mobility Goal: Ambulation Description: Pt will ambulate 125 feet with least restrictive device with supervision to improve ability to navigate home environment. Outcome: Met This Shift Problem: PT - Transfers Goal: Supine <-> Sit Description: Pt will perform bed mobility with flat bed & no rail with supervision in order to improve functional mobility and safety. Outcome: Met This Shift Goal: Sit <-> Stand Description: Pt will perform sit to/from stand transfers with supervision with least restrictive device in order to improve functional mobility and safety. Outcome: Met This Shift Problem: OT - ADLs Goal: Grooming Description: Pt will complete grooming in standing with independence for improved ability to safely complete ADLs. Outcome: Progressing Toward Goal Goal: Bathing Description: Pt will perform full body bathing/dressing routine with modified independence while seated for improved ability to complete self-care activities. Outcome: Progressing Toward Goal Problem: OT - Cognition Goal: Cognition Home Maintenance Description: Pt will complete simulated home maintenance task (medication management, finance management, etc.) with independence to promote safety and success at discharge destination. Outcome: Progressing Toward Goal Problem: OT - ADLs Goal: Toileting Description: Pt will complete toileting task including clothing management with supervision for improved ability to safely complete self-care activities. Outcome: Ongoing Problem: OT - Strength/ROM Goal: Strength/ROM ADL Participation Description: Pt will demonstrate independence with UE exercise program to prevent deconditioning while in the hospital and to maximize UE ROM/coordination/strength for ADL participation. Outcome: Ongoing I certify that this patient requires inpatient services at this time. I anticipate the expected length of stay will include at least two midnights. Inpatient services are due to the following medical concerns stroke. Plans for post hospitalization care will be discharge to TBD. Problem: Patient Care Overview Goal: Plan of Care Review Outcome: Ongoing Goal: Individualization & Mutuality Outcome: Ongoing Goal: Discharge Needs Assessment Outcome: Ongoing Goal: Interdisciplinary Rounds/Family Conf Outcome: Ongoing Problem: Dysphagia (Adult) Goal: Identify Related Risk Factors and Signs and Symptoms Description: Related risk factors and signs and symptoms are identified upon initiation of Human Response Clinical Practice Guideline (CPG) Outcome: Ongoing Goal: Functional/Safe Swallow Description: Patient will demonstrate the desired outcomes by discharge/transition of care. Outcome: Ongoing Goal: Compensatory Techniques to Improve Safety/Function with Swallowing Description: Patient will demonstrate the desired outcomes by discharge/transition of care. Outcome: Ongoing Problem: Stroke (Ischemic) (Adult) Goal: Signs and Symptoms of Listed Potential Problems Will be Absent, Minimized or Managed (Stroke) Description: Signs and symptoms of listed potential problems will be absent, minimized or managed by discharge/transition of care (reference Stroke (Ischemic) (Adult) CPG). Outcome: Ongoing Problem: PT - Balance/Coordination/Neuro Re-Education Goal: Standing Dynamic/Static Balance Description: Pt will perform standing balance tasks for 8 minutes with supervision assistance with least restrictive device in order to improve functional mobility and safety with standing tasks. Outcome: Ongoing Problem: PT - Mobility Goal: Ambulation Description: Pt will ambulate 125 feet with least restrictive device with supervision to improve ability to navigate home environment. Outcome: Ongoing Problem: PT - Transfers Goal: Supine <-> Sit Description: Pt will perform bed mobility with flat bed & no rail with supervision in order to improve functional mobility and safety. Outcome: Ongoing Goal: Sit <-> Stand Description: Pt will perform sit to/from stand transfers with supervision with least restrictive device in order to improve functional mobility and safety. Outcome: Ongoing Problem: OT - ADLs Goal: Grooming Description: Pt will complete grooming in standing with independence for improved ability to safely complete ADLs. Outcome: Ongoing Goal: Toileting Description: Pt will complete toileting task including clothing management with supervision for improved ability to safely complete self-care activities. Outcome: Ongoing Goal: Bathing Description: Pt will perform full body bathing/dressing routine with modified independence while seated for improved ability to complete self-care activities. Outcome: Ongoing Problem: OT - Cognition Goal: Cognition Home Maintenance Description: Pt will complete simulated home maintenance task (medication management, finance management, etc.) with independence to promote safety and success at discharge destination. Outcome: Ongoing Problem: OT - Strength/ROM Goal: Strength/ROM ADL Participation Description: Pt will demonstrate independence with UE exercise program to prevent deconditioning while in the hospital and to maximize UE ROM/coordination/strength for ADL participation. Outcome: Ongoing On admission to [facility], from ED a dual RN initial assessment of skin condition was performed by Jarred Barragan RN and Leelee Schaefer RN. Skin Assessment: Skin not within defined limits. - Wound(s) identified: Yes - Photo taken and uploaded into notes in IHIS: Yes Sarkis Score: 13 LDA Added:Yes Jarred Barragan RN documented in this encounter [facility] 04-16-2023 Plan of care note Problem: Patient Care Overview Goal: Plan of Care Review Outcome: Adequate for Discharge Goal: Individualization & Mutuality Outcome: Adequate for Discharge Goal: Discharge Needs Assessment Outcome: Adequate for Discharge Goal: Interdisciplinary Rounds/Family Conf Outcome: Adequate for Discharge Problem: Dysphagia (Adult) Goal: Identify Related Risk Factors and Signs and Symptoms Description: Related risk factors and signs and symptoms are identified upon initiation of Human Response Clinical Practice Guideline (CPG) Outcome: Adequate for Discharge Goal: Functional/Safe Swallow Description: Patient will demonstrate the desired outcomes by discharge/transition of care. Outcome: Adequate for Discharge Goal: Compensatory Techniques to Improve Safety/Function with Swallowing Description: Patient will demonstrate the desired outcomes by discharge/transition of care. Outcome: Adequate for Discharge Problem: Stroke (Ischemic) (Adult) Goal: Signs and Symptoms of Listed Potential Problems Will be Absent, Minimized or Managed (Stroke) Description: Signs and symptoms of listed potential problems will be absent, minimized or managed by discharge/transition of care (reference Stroke (Ischemic) (Adult) CPG). Outcome: Adequate for Discharge Problem: PT - Balance/Coordination/Neuro Re-Education Goal: Standing Dynamic/Static Balance Description: Pt will perform standing balance tasks for 8 minutes with supervision assistance with least restrictive device in order to improve functional mobility and safety with standing tasks. Outcome: Adequate for Discharge Problem: PT - Mobility Goal: Ambulation Description: Pt will ambulate 125 feet with least restrictive device with supervision to improve ability to navigate home environment. Outcome: Adequate for Discharge Problem: PT - Transfers Goal: Supine <-> Sit Description: Pt will perform bed mobility with flat bed & no rail with supervision in order to improve functional mobility and safety. Outcome: Adequate for Discharge Goal: Sit <-> Stand Description: Pt will perform sit to/from stand transfers with supervision with least restrictive device in order to improve functional mobility and safety. Outcome: Adequate for Discharge Problem: OT - ADLs Goal: Grooming Description: Pt will complete grooming in standing with independence for improved ability to safely complete ADLs. Outcome: Adequate for Discharge Goal: Toileting Description: Pt will complete toileting task including clothing management with supervision for improved ability to safely complete self-care activities. Outcome: Adequate for Discharge Goal: Bathing Description: Pt will perform full body bathing/dressing routine with modified independence while seated for improved ability to complete self-care activities. Outcome: Adequate for Discharge Problem: OT - Cognition Goal: Cognition Home Maintenance Description: Pt will complete simulated home maintenance task (medication management, finance management, etc.) with independence to promote safety and success at discharge destination. Outcome: Adequate for Discharge Problem: OT - Strength/ROM Goal: Strength/ROM ADL Participation Description: Pt will demonstrate independence with UE exercise program to prevent deconditioning while in the hospital and to maximize UE ROM/coordination/strength for ADL participation. Outcome: Adequate for Discharge [facility] 04-15-2023 History of Present illness Narrative Final Discharge Planning and Transportation Final Discharge Planning Discharge Disposition: Home with Home Health Services at Discharge: Physical Therapy, Occupational Therapy Community Agency Name(s) For Handoff: [facility] Phone For Handoff: Fax For Handoff: Plan Plan: Patient will discharge Home with Home Health provided by [facility]. Patient/Family In Agreement With Plan: yes Transportation Transport Request Mode of Transfer: Private Vehicle Leelee NEWTON RN [facility] Weekend Clinical Sheet Metal Apprentice Available on secure chat. NEUROVASCULAR STROKE SERVICE Daily Progress Note IDENTIFYING INFORMATION Shakila Perez MR# [id number] 04/15/2023 HISTORY OF PRESENT ILLNESS Shakila Perez is a 83 y.o. female with PMH significant for HTN, possible prior stroke, and CHF who presented to OSH on 04/11 for R hand clumsiness and dysarthria. The hand clumsiness resolved with 1 hour, but the dysarthria has been persistent. MRI, CTH, and CTA on 04/11 at [facility] was all negative for acute stroke or LVO. Overnight, the patient developed left side neglect. Discussed with nursing staff at OSH and it is unclear what time this began. Pt was transferred for further workup given worsening exam. On arrival, NIH 8, CTH without large territory stroke, CTA no LVO. CTP with subtle prolonged Tmax in the R MCA territory. No acute interventions due to no LVO and outside of treatment window. INTERVAL HISTORY 04/13: MRI negative for acute stroke, NIH 0 today. EEG ordered 04/14: EEG negative, discontinue. [place] improving s/p IV fluids. Home losartan resumed at partial dose for HTN. 04/15: [place] improved, SBP > 200, resumed home BP regimen, discharge on hold pending BP control PHYSICAL EXAM Gen: awake, alert, NAD HEENT: normocephalic, no scalp lesions or tenderness Neck: trachea midline No JVD CV: +S1S2, RRR, no m/r/g Lungs: LCTA bilaterally with equal chest rise Abd: soft, nontender, nondistended, +BS x4 quadrants Extrem: Warm and well perfused, no edema, 2+ pulses bilaterally Neuro: Oriented x4, ARVIZU x 4, sensation intact and equal bilaterally to light touch CN II - All visual julien intact CN II/III - PERRLA CN III/IV/ - EOMI CN V - Light touch to face intact in V1-3 CN VII - Facial movement intact and symmetrical bilaterally CN VIII - Hearing intact CN X - Cough present CN XI - muscular movement of shoulders and sternocleidomastoid muscles intact and equal bilaterally CN XII - midline protrusion of tongue MOTOR EXAMINATION: No drift ASSESSMENT AND PLAN Neuro: Clinical seizures CTH: no hemorrhage or large territory stroke CTA brain/neck: no LVO or critical stenosis. Moderate L subclavian stenosis CTP: slightly prolonged Tmax to R MCA, L temporal hyperintensity MRI brain: No acute stroke TTE: EF 52% mild, MR and TR, thrombus, or PFO cEEG: L temporal cerebral dysfunction, mild encephalopathy LDL 82 HgbA1c 5.8 Plan: -Keppra 500 mg q12h -Atorvastatin 40 mg daily for secondary stroke risk reduction -Blood pressure goal normotension -No driving for 6 months Ischemic Stroke Core Measures -Not indicated as MRI with no acute stroke ARG[place]: creat 1.95 on admission, per chart review has creat 1.8 in 2021, no known history of CKD -NS @ 75 ml/hr -04/15 improved to 1.49 with additional fluid; MIV stopped, encourage PO intake HTN (POA) -home losartan resumed at partial dose 50 mg daily due to SBP 200s 04/14 -04/15 SBP >200, losartan increased to home dose 100mg daily, resume home hydrochlorothiazide-spironolactone 25mg-25mg daily Disposition: Shakila Perez will likely be discharged to home with [facility] Dexter Daigle, PATRICK-GLUE LINE OPERATOR 04/15/2023 11:23 AM VITAL SIGNS Temp: [97.4 F (36.3 C)-98.2 F (36.8 C)] 97.5 F (36.4 C) Pulse (Heart Rate): [73-86] 80 Resp Rate: [18-30] 18 BP: (154-218)/(69-100) 218/94 O2 Sat (%): [96 %-99 %] 96 % Oxygen Therapy: Oxygen Therapy O2 Sat (%): 96 % O2 Device: room air Intake/Output: Intake/Output Summary (Last 24 hours) at 04/15/2023 1123 Last data filed at 04/15/2023 1043 Gross per 24 hour Intake 2345.1 ml Output -- Net 2345.1 ml LABS/CULTURES Lab Results Component Value Date WBC 5.03 04/15/2023 HGB 9.2 (L) 04/15/2023 HCT 29.2 (L) 04/15/2023 PLATELET 180 04/15/2023 MCV 89.3 04/15/2023 Lab Results Component Value Date SODIUM 142 04/15/2023 POTASSIUM 5.0 04/15/2023 CHLORIDE 113 (H) 04/15/2023 CO2 20 (L) 04/15/2023 BUN 37 (H) 04/15/2023 CREATSERUM 1.49 (H) 04/15/2023 GLUCOSE 87 04/15/2023 Lab Results Component Value Date CHOLESTEROL 150 04/13/2023 TRIG 111 04/13/2023 HDL 46 04/13/2023 LDLCALC 82 04/13/2023 Lab Results Component Value Date HGBA1C 5.8 (H) 04/13/2023 Lab Results Component Value Date ALBUMIN 3.8 04/13/2023 , No results found for: CPK , TROP IMAGING/DIAGNOSTIC STUDIES ECHOCARDIOGRAM Final Result MRI BRAIN WITHOUT CONTRAST Final Result IMPRESSION: 1. No acute infarct. 2. Chronic small vessel ischemic disease. I personally viewed and interpreted these images and I have reviewed and approved this report. CEREBRAL PERFUSION ANALYSIS Final Result IMPRESSION: Questionable perfusion deficit in the posterior aspect of the right cerebral hemisphere noted in the time of drain sequences is favored to represent artifact given no associated perfusion abnormality in any other perfusion maps. Clinical correlation is ultimately needed. ANGIO BRAIN/NECK Final Result IMPRESSION: 1. 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 Otherwise no large vessel occlusion or significant stenosis of the carotid or vertebral system. 2. 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 3. Thyroid lesions. These are of indeterminate etiology and would be better assessed by ultrasound if clinically indicated. I personally viewed and interpreted these images and I have reviewed and approved this report. STROKE HEAD-STROKE ALERT ONLY Final Result IMPRESSION: No acute intracranial hemorrhage, or CT signs of acute large territory infarction. No significant intracranial mass effect. Findings were discussed with CHANTELL Nice at 2:00 PM on April 12, 2023. I personally viewed and interpreted these images and I have reviewed and approved this report. CATIONS Atorvastatin 40 mg Oral QHS heparin 5,000 Units Subcutaneous Q8H hydroCHLOROthiazide 25 mg Oral Daily levETIRAcetam 500 mg Oral Q12H losartan 100 mg Oral Daily Senna 8.6 mg Oral QAM Or Senna 8.6 mg Per NG tube QAM Spironolactone 25 mg Oral Daily Associated attestation - Patricio Ling MD - 04/15/2023 6:14 PM EDT I have seen and independently examined the patient on 04/15/2023. I reviewed the laboratory and imaging data. The management plan was constructed in discussion with me. I agree with the note as written by the nurse practitioner: 83 y/o woman with h/o HTN, possible prior stroke, and CHF p/w R hand clumsiness and dysarthria. The hand clumsiness resolved with 1 hour, but the dysarthria has been persistent. MRI, CTH, and CTA on 04/11 at [facility] was all negative for acute stroke or LVO. Overnight, the patient developed left side neglect. Discussed with nursing staff at OSH and it is unclear what time this began. Pt was transferred for further workup given worsening exam. On arrival, NIH 8, CTH without large territory stroke, CTA no LVO. CTP concerning for hyperperfusion in left temporal lobe. No acute interventions due to no LVO and outside of treatment window. MRI brain - no acute stroke. LDL-82. EEG- left temporal dysfunction. TTE: EF 52% mild, MR and TR, thrombus, or PFO. LDL 82 HgbA1c 5.8. No acute events overnight. BP in 200's this AM. Due to suspicion for seizure due to concerning finding on CTP and EEG, start on Keppra. BP control - start home meds. Discussed with brother and [id number] at bedside. Home Health referral uploaded to [facility]. No accepting Agencies. CM extended search location. Will place in handoff for weekend CM to follow up ANAT Asnari, CUSTOMER SERVICE MANAGER Sheet Metal ApprenticeSilver Solderer info for weekend CM and SW staff (8:00am - 4:30pm): [facility]: CCM: [phone] / Heading Up Machine Operator: [phone] Ly: CCM: [phone] / Heading Up Machine Operator: [phone] Jan: CCM : [phone] / Heading Up Machine Operator: [phone] Ross: CCM: [phone] / Heading Up Machine Operator: [phone] MICU/NCCU: CCM: [phone] / Heading Up Machine Operator: [phone] Acute Physical Therapy Treatment Prior to Admission [facility] score(s): PRIOR LEVEL AM-PAC Mobility Raw Score: 24 PRIOR LEVEL AM-PAC Activity Raw Score: 24 Current AM-PAC score(s): CURRENT AM-PAC Mobility Raw Score: 24 Based on the above AM-PAC score(s) and PT clinical judgment, patient is a good candidate for discharge to Home with Outpatient Rehab Services Barriers to discharge home: None Mobility equipment available at home: straight cane, 2 wheeled walker ADL equipment available at home: shower bench Equipment needed for discharge: none Current therapy frequency recommendation in acute: Therapy Frequency: no therapy warranted Activity Recommendations for outside of rehab session: ad william in room with lines and floor cleared, non skid footwear Precautions and Weightbearing Status: Existing Precautions/Restrictions: fall No critical lines at this time Patient Safety Communication Prior to Visit: Nursing (HTN throughout during visit with RAINE Layton aware and allowing therapy participation) Subjective: Pt reports 100% PLOF then agrees she wouldn't be mowing her 5 acres and endorses her brother can assist with IADLs. Reports biggest concern is being told not to drive with town 10 miles away. Brother 35 miles away Pain: General Pain Documentation (Adult, OB, Peds) Presence of Pain: denies pain/discomfort Presence of Pain Score (Auto-calculated): 0 Objective/Observation: Vitals/Vitals Responses to Treatment: 04/14/23 1213 04/14/23 1241 04/14/23 1259 Vitals ICU/PCU Pulse (Heart Rate) 73 80 84 Resp Rate -- (!) 30 -- BP (!) 208/93 (!) 210/94 195/90 MAP (mmHg) (!) 133 mmHg (!) 135 mmHg (!) 129 mmHg BP Method Automatic -- -- BP Location Left arm -- -- BP Position Sitting Sitting initial Sitting after gait/ stairs Oxygen Therapy O2 Sat (%) -- 97 % 98 % 04/14/23 1305 Vitals ICU/PCU Pulse (Heart Rate) 86 Resp Rate 24 Oxygen Therapy O2 Sat (%) 98 % *asymptomatic throughout, mild SOB appreciated with activity but pt denies appreciation of SOB Cognition Overall Cognitive Status: Within Functional Limits Arousal/Alertness: Appropriate responses to stimuli Orientation Level: Oriented X4 Following Commands: Follows all commands and directions without difficulty Extremity Assessments: See PT Evaluation flowsheet for Extremity Measurement updates. Skin and Edema: Balance: Sitting Balance Static Sitting-Level of Assistance: Independent Dynamic Sitting-Level of Assistance: Independent Standing Balance Static Standing-Level of Assistance: Independent Dynamic Standing-Level of Assistance: Supervision, Independent Standing Balance Skilled Intervention/Details: education for slight R drift with good ability to self correct but decreased self awareness exhibiting increased independence without IV pole and with increased duration on feet Mobility Assessment/Intervention: Rolling/Turning Mobility Walton Level: Rolling/Turning: independent Bed Features/Set-up: Rolling/Turning: Flat Supine to Sit Mobility Walton Level: Supine->Sit: independent Bed Features/Set-up: Supine->Sit: Flat Sit to Supine Mobility Walton Level: Sit->Supine: independent Bed Features/Set-up: Sit->Supine: Flat Transfer Assessment/Intervention: Sit to Stand Transfer Walton Level: Sit->Stand: independent Skilled Intervention/Details: Sit->Stand: EOB x1, recliner x1, toilet with out grab bar Stand to Sit Transfer Walton Level: Stand->Sit: independent Skilled Intervention/Details: Stand->Sit: EOB x1, recliner x1, toilet x1 Gait/Functional Mobility Assessment/Intervention: Gait Assessment Walton Level: Gait: supervision (progresses to independent) Ambulation Distance (Feet): 350 (+ 2x10) Skilled Intervention/Details - Gait: Pt able to stop, turn around, look behind her R/L, tack picker object from floor with L then R hand, increase and decrease speed with some difficulty but no instability. Challenged x50' with increased single limb support phase duration with mild instability but self corrected. She stops for lateral head turns but able to maintain fwd gait looking up and down Stairs Assessment/Intervention: Stairs Assessment Walton Level: Stair Negotiation: independent Assistive Device: Stair Negotiation: gait belt Number of stairs: 2x4 Skilled Intervention/Details - Stairs: cues to stop d/t IV line length both trials but able to ascend/ descend without UE support with increased stability appreciated second trial. Additional heel tap reciprocal and unilateral step downs from stair to highlight pt impairments for increased self awareness but able to decrease R handrail hold assist and improve stability 2x10 Outcome Score(s): CURRENT [facility] Basic Mobility Inpatient Short Form Turning over in bed: 4 - No Assistance Sitting/standing from chair: 4 - No Assistance Moving from lying on back to sittin - No Assistance Moving to and from bed to chair: 4 - No Assistance Walk in hospital room: 4 - No Assistance Climbing 3-5 steps with a railin - No Assistance CURRENT [facility] Mobility Raw Score: 24 CURRENT [facility] Mobility Functional Limitation/Modifier: 0.00% Currently Impaired in Basic Mobility - Interventions: Assessment & Plan: Patient Instruction/Education this session: safety and home setup , IADL assist, driving simulator, gradual progression in daily activities, continued rehab for higher level balance challenges Plan for next session: discharge per goals met and independence during functional mobility Acute PT Goals Plan of Care by Alfreda Maxwell PT at 04/14/2023 3:57 PM Version 1 of 1 Problem: PT - Balance/Coordination/Neuro Re-Education Goal: Standing Dynamic/Static Balance Description: Pt will perform standing balance tasks for 8 minutes with supervision assistance with least restrictive device in order to improve functional mobility and safety with standing tasks. Outcome: Met This Shift Problem: PT - Mobility Goal: Ambulation Description: Pt will ambulate 125 feet with least restrictive device with supervision to improve ability to navigate home environment. Outcome: Met This Shift Problem: PT - Transfers Goal: Supine <-> Sit Description: Pt will perform bed mobility with flat bed & no rail with supervision in order to improve functional mobility and safety. Outcome: Met This Shift Goal: Sit <-> Stand Description: Pt will perform sit to/from stand transfers with supervision with least restrictive device in order to improve functional mobility and safety. Outcome: Met This Shift PT treatment consisted of the following to progress towards the above goal(s): PT Evaluation and Treatment Time Therapeutic Activity Time Entry: 10 Gait Training Time Entry: 12 Neuromuscular Re-Education Time Entry: 5 Treating Therapist: Alfreda Maxwell PT Additional Details: PT Co-Eval/Treatment Information Co-evaluation/co-treatment performed?: No simultaneous skilled care performed PPE used during patient interaction: facemask, gloves Patient location at end of session: chair Alarms on at end of session: none Needs in reach. Time In: 1238 Time Out: 1305 Total Visit Time: 27 minutes Total Treatment Time (skilled, billable minutes): 27 minutes Upon discontinuation of Acute Care Physical Therapy Services or patient discharge from the hospital this note represents the current Physical Therapy Discharge Summary. Acute Occupational Therapy Treatment Prior to Admission AM-PAC Score: PRIOR LEVEL AM-PAC Activity Raw Score: 24 PRIOR LEVEL AM-PAC Mobility Raw Score: 24 Current AM-PAC score(s): CURRENT AM-PAC Activity Raw Score: 21 Based on the above AM-PAC score(s), and OT clinical judgment, discharge destination recommendation is: Home with Home Health Barriers to discharge home: Lack of social support to meet functional needs at home, Patient needs assistance with functional mobility, Patient needs assistance with ADLs, Patient needs assistance with IADLs (see note below), Patient needs assistance with self-care for medical condition (see note below) Mobility equipment available at home: straight cane, 2 wheeled walker ADL equipment available at home: shower bench Equipment recommendations for discharge: shower chair Current therapy frequency recommendation(s) in acute: 5 times a week Precautions and Weightbearing Status: OT Existing Precautions/Restrictions: fall No critical lines at this time Patient Safety Communication Prior to Visit: Nursing Subjective: Patient agreeable to session, feels comfortable discharging to home. Pain: General Pain Documentation (Adult, OB, Peds) Presence of Pain: denies pain/discomfort Presence of Pain Score (Auto-calculated): 0 Objective/Observation: Vitals/Vitals Responses to Treatment: no adverse reaction to session O2 Device: room air Cognition Overall Cognitive Status: Within Functional Limits Arousal/Alertness: Appropriate responses to stimuli Orientation Level: Oriented X4 Following Commands: Follows all commands and directions without difficulty Safety Judgment: Good awareness of safety precautions ADL Assessment/Intervention: Grooming Assistance: Independent Grooming Location: seated at sink Grooming Intervention/Details: Performed hair care (shower cap and brushing) and washing face. Bathing Assistance: Stand by Bathing Location: standing at sink, seated at sink Bathing Deficit: Activity tolerance, Balance, Follows safety/precautions Bathing Skilled Rationale (Verbal/Tactile/Visual/Demonstrati on): Setup, Supervision, Cues for increased safety, Facilitate positioning, Technique of activity, Energy Conservation Bathing Intervention/Details: Full body bathing performed. UE Dressing Assistance: Independent UE Dressing Location: seated in chair UE Dressing Intervention/Details: Doffed/donned, requiring cues for line management. LE Dressing Assistance: Supervision LE Dressing Location: seated in chair, standing LE Dressing Deficit: Activity tolerance, Follows safety/precautions LE Dressing Skilled Rationale (Verbal/Tactile/Visual/Demonstrati on): Supervision, Cues for increased safety, Facilitate positioning, Setup LE Dressing Intervention/Details: Donned socks and underwear. Extremity Assessments: See OT Evaluation flowsheet for Extremity Measurement updates. Balance: Standing Balance Static Standing-Level of Assistance: Supervision Dynamic Standing-Level of Assistance: Supervision, Stand-by assist Standing-Balance Support: No upper extremity supported Skilled Rationale: Verbal cues, Positioning, Cues for increased safety, Energy conservation Transfer Assessment/Intervention: Sit to Stand Transfer Walton Level: Sit->Stand: supervision Assistive Device: Sit->Stand: armed chair Skilled Rationale: Verbal cues Skilled Intervention/Details: Sit->Stand: x4 from recliner. Stand to Sit Transfer Walton Level: Stand->Sit: supervision Assistive Device: Stand->Sit: armed chair Skilled Rationale: Verbal cues Functional Mobility: Functional Mobility Walton Level: Functional Mobility/Gait: stand-by assist Functional Mobility Distance: Distance needed for common household mobility Ambulation Distance (Feet): 170 Functional Mobility Deficits: Activity tolerance, Follow safety/precautions, Balance Functional Mobility Skilled Rationale: Verbal cues, Cues for increased safety, Facilitate positioning Outcome Score(s): CURRENT [facility] Daily Activity Inpatient Short Form Putting on/Taking Off Lower Body Clothin - A Little Assistance Bathin - A Little Assistance Toiletin - A Little Assistance Putting on/Taking Off Upper Body Clothin - No Assistance Groomin - No Assistance Eatin - No Assistance CURRENT [facility] Activity Raw Score: 21 CURRENT [facility] Activity Functional Limitation/Modifier: 32.79% Currently Impaired in Daily Activity - CJ Assessment & Plan: Patient progressing toward goals this date with improving balance, mobility and ADLs, performing all with SBA-supervision. Patient appropriate for discharge to home with home health and will continue to benefit from skilled OT services to address strength, activity tolerance, balance, functional transfers/mobility and ADLs for improved safety/independence with occupational performance. Patient Instruction/Education this session: OT role, plan of care Plan for next session: dynamic standing balance/endurance for I/ADLs, higher level cog Acute OT Goals Plan of Care by Sofya Cornell OT at 04/14/2023 11:03 AM Version 1 of 1 Problem: OT - ADLs Goal: Grooming Description: Pt will complete grooming in standing with independence for improved ability to safely complete ADLs. Outcome: Progressing Toward Goal Goal: Bathing Description: Pt will perform full body bathing/dressing routine with modified independence while seated for improved ability to complete self-care activities. Outcome: Progressing Toward Goal Problem: OT - Cognition Goal: Cognition Home Maintenance Description: Pt will complete simulated home maintenance task (medication management, finance management, etc.) with independence to promote safety and success at discharge destination. Outcome: Progressing Toward Goal Problem: OT - ADLs Goal: Toileting Description: Pt will complete toileting task including clothing management with supervision for improved ability to safely complete self-care activities. Outcome: Ongoing Problem: OT - Strength/ROM Goal: Strength/ROM ADL Participation Description: Pt will demonstrate independence with UE exercise program to prevent deconditioning while in the hospital and to maximize UE ROM/coordination/strength for ADL participation. Outcome: Ongoing OT treatment consisted of the following to work and progress towards the above goal(s): OT Evaluation and Treatment Time Self Care/Home Management (ADLs) Time Entry: 22 Therapeutic Activity Time Entry: 10 Treating Therapist: Sofya Cornell OT Additional Details: OT Co-Eval/Treatment Information Co-evaluation/co-treatment performed?: No simultaneous skilled care performed PPE used during patient interaction: facemask, gloves Patient location at end of session: chair Alarms on at end of session: none Needs in reach. Time In: 1031 Time Out: 1103 Total Visit Time: 32 minutes Total Treatment Time (skilled, billable minutes): 32 minutes Upon discontinuation of Acute Care Occupational Therapy Services or patient discharge from the hospital this note represents the current Occupational Therapy Discharge Summary. NEUROVASCULAR STROKE SERVICE Daily Progress Note IDENTIFYING INFORMATION Shakila Perez MR# [id number] 04/14/2023 HISTORY OF PRESENT ILLNESS Shakila Perez is a 83 y.o. female with PMH significant for HTN, possible prior stroke, and CHF who presented to OSH on 04/11 for R hand clumsiness and dysarthria. The hand clumsiness resolved with 1 hour, but the dysarthria has been persistent. MRI, CTH, and CTA on 04/11 at [facility] was all negative for acute stroke or LVO. Overnight, the patient developed left side neglect. Discussed with nursing staff at OSH and it is unclear what time this began. Pt was transferred for further workup given worsening exam. On arrival, NIH 8, CTH without large territory stroke, CTA no LVO. CTP with subtle prolonged Tmax in the R MCA territory. No acute interventions due to no LVO and outside of treatment window. INTERVAL HISTORY 04/13: MRI negative for acute stroke, NIH 0 today. EEG ordered 04/14: EEG negative, discontinue. [place] improving s/p IV fluids. Home losartan resumed at partial dose for HTN. PHYSICAL EXAM Gen: awake, alert, NAD HEENT: normocephalic, no scalp lesions or tenderness Neck: trachea midline No JVD CV: +S1S2, RRR, no m/r/g Lungs: LCTA bilaterally with equal chest rise Abd: soft, nontender, nondistended, +BS x4 quadrants Extrem: Warm and well perfused, no edema, 2+ pulses bilaterally Neuro: Oriented x4, ARVIZU x 4, sensation intact and equal bilaterally to light touch CN II - All visual julien intact CN II/III - PERRLA CN III/IV/ - EOMI CN V - Light touch to face intact in V1-3 CN VII - Facial movement intact and symmetrical bilaterally CN VIII - Hearing intact CN X - Cough present CN XI - muscular movement of shoulders and sternocleidomastoid muscles intact and equal bilaterally CN XII - midline protrusion of tongue MOTOR EXAMINATION: No drift ASSESSMENT AND PLAN Neuro: Clinical seizures CTH: no hemorrhage or large territory stroke CTA brain/neck: no LVO or critical stenosis. Moderate L subclavian stenosis CTP: slightly prolonged Tmax to R MCA, L temporal hyperintensity MRI brain: No acute stroke TTE: EF 52% mild, MR and TR, thrombus, or PFO cEEG: L temporal cerebral dysfunction, mild encephalopathy LDL 82 HgbA1c 5.8 Plan: -Keppra 500 mg q12h -Atorvastatin 40 mg daily for secondary stroke risk reduction -Blood pressure goal normotension -No driving for 6 months Ischemic Stroke Core Measures -Not indicated as MRI with no acute stroke [place]: creat 1.95 on admission, per chart review has creat 1.8 in 2021, no known history of CKD -NS @ 75 ml/hr -urine lytes pending -continue to monitor HTN (POA) -home losartan resumed at partial dose 50 mg daily due to SBP 200s 04/14 Disposition: Shakila Perez will likely be discharged to home with [facility] Ben Murphy APRN-GLUE LINE OPERATOR 04/14/2023 1:19 PM VITAL SIGNS Temp: [97.7 F (36.5 C)-98.9 F (37.2 C)] 97.8 F (36.6 C) Pulse (Heart Rate): [73-96] 73 Resp Rate: [16-23] 23 BP: (146-208)/(65-95) 208/93 O2 Sat (%): [93 %-97 %] 96 % Oxygen Therapy: Oxygen Therapy O2 Sat (%): 96 % O2 Device: room air Flow (L/min): 0 Intake/Output: Intake/Output Summary (Last 24 hours) at 04/14/2023 1319 Last data filed at 04/14/2023 0844 Gross per 24 hour Intake 1652.15 ml Output -- Net 1652.15 ml LABS/CULTURES Lab Results Component Value Date WBC 6.34 04/14/2023 HGB 9.7 (L) 04/14/2023 HCT 30.3 (L) 04/14/2023 PLATELET 190 04/14/2023 MCV 87.8 04/14/2023 Lab Results Component Value Date SODIUM 137 04/14/2023 POTASSIUM 4.9 04/14/2023 CHLORIDE 108 04/14/2023 CO2 22 04/14/2023 BUN 42 (H) 04/14/2023 CREATSERUM 1.83 (H) 04/14/2023 GLUCOSE 90 04/14/2023 Lab Results Component Value Date CHOLESTEROL 150 04/13/2023 TRIG 111 04/13/2023 HDL 46 04/13/2023 LDLCALC 82 04/13/2023 Lab Results Component Value Date HGBA1C 5.8 (H) 04/13/2023 Lab Results Component Value Date ALBUMIN 3.8 04/13/2023 , No results found for: CPK , TROP IMAGING/DIAGNOSTIC STUDIES ECHOCARDIOGRAM Final Result MRI BRAIN WITHOUT CONTRAST Final Result IMPRESSION: 1. No acute infarct. 2. Chronic small vessel ischemic disease. I personally viewed and interpreted these images and I have reviewed and approved this report. CEREBRAL PERFUSION ANALYSIS Final Result IMPRESSION: Questionable perfusion deficit in the posterior aspect of the right cerebral hemisphere noted in the time of drain sequences is favored to represent artifact given no associated perfusion abnormality in any other perfusion maps. Clinical correlation is ultimately needed. ANGIO BRAIN/NECK Final Result IMPRESSION: 1. 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 Otherwise no large vessel occlusion or significant stenosis of the carotid or vertebral system. 2. 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 3. Thyroid lesions. These are of indeterminate etiology and would be better assessed by ultrasound if clinically indicated. I personally viewed and interpreted these images and I have reviewed and approved this report. STROKE HEAD-STROKE ALERT ONLY Final Result IMPRESSION: No acute intracranial hemorrhage, or CT signs of acute large territory infarction. No significant intracranial mass effect. Findings were discussed with CHANTELL Nice at 2:00 PM on April 12, 2023. I personally viewed and interpreted these images and I have reviewed and approved this report. CATIONS Atorvastatin 40 mg Oral QHS heparin 5,000 Units Subcutaneous Q8H levETIRAcetam 500 mg Oral Q12H losartan 50 mg Oral Daily Senna 8.6 mg Oral QAM Or Senna 8.6 mg Per NG tube QAM Associated attestation - Patricio Ling MD - 04/15/2023 6:13 PM EDT I have seen and independently examined the patient on 04/14/2023. I reviewed the laboratory and imaging data. The management plan was constructed in discussion with me. I agree with the note as written by the nurse practitioner: 83 y/o woman with h/o HTN, possible prior stroke, and CHF p/w R hand clumsiness and dysarthria. The hand clumsiness resolved with 1 hour, but the dysarthria has been persistent. MRI, CTH, and CTA on 04/11 at [facility] was all negative for acute stroke or LVO. Overnight, the patient developed left side neglect. Discussed with nursing staff at OSH and it is unclear what time this began. Pt was transferred for further workup given worsening exam. On arrival, NIH 8, CTH without large territory stroke, CTA no LVO. CTP concerning for hyperperfusion in left temporal lobe. No acute interventions due to no LVO and outside of treatment window. MRI brain - no acute stroke. LDL-82. EEG- left temporal dysfunction. TTE: EF 52% mild, MR and TR, thrombus, or PFO. LDL 82 HgbA1c 5.8. No acute events overnight. [place] improving. Due to suspicion for seizure due to concerning finding on CTP and EEG, start on Keppra. OT/PT/WRECKER DRIVER Discharge Planning Patient Assessment Admission Assessment Patient Assessment Completed: Initial Anticipated discharge disposition: Home Reason for Admission: Encephalopathy/clumsiness/Dysarthr ia Is the patient able to participate in the assessment?: Yes Information source: Patient Demographics Verified and Updated: Yes Has the patient been admitted to any hospital in the last 30 days?: Transferred From Outside Hospital Advanced Care Planning Has the patient completed Advance Directives?: Completed, Not Available in Medical Record Copy of Advance Directives was requested?: Yes Advance Directives Requested From: Patient at next juncture Legal Next of Kin Does the patient have a Guardian?: No Referral to Social Work to Identify Legal Next of Kin?: No Reviewed and Updated in Demographics? : Yes Outpatient Providers Does patient have a primary care physician? : Yes When was the patient's last PCP visit?: < 30 days Does the patient follow any specialists?: Yes Reviewed and updated Care Team?: Yes Patient Care Team: Shaina Snyder MD as PCP - General (Family Medicine) Environment/Caregivers Is the patient from a facility or skilled nursing?: No Patient lives with: Alone Living Environment: House How many steps does the patient have to navigate to enter or inside the home? : 1 Does the patient have a first floor set-up with bed and bathroom?: Yes Patient Caregiving Responsibilities: Self Patient-identified caregiver/support network: Neighbors Who does the patient identify as a teachable caregiver(s)?: Friend(s) (neighbors) Services Does the patient use a home health or hospice agency?: No Does patient use DME? : straight cane, tub bench/seat, walker Does the patient use oxygen?: No Anticipated Changes Related to Illness/Injury? : Unknown at this time Initial ADLs Prior to Arrival What is the patient's baseline physical functioning prior to this acute illness?: independent What is the patient's baseline cognitive functioning prior to this acute illness?: independent Are there therapy or specialists consults?: Yes Select consult type: PT, OT, WRECKER DRIVER CM to recommend therapy or other consults? : No Medication Management Does the patient have prescription insurance coverage? : Yes Is the patient on Anticoagulation? : No [id number] [place] [address] - [phone] [facility] [id number] Field Service Representative Does the patient or business services sales representative express financial concerns? : No Employed?: Retired Coping/Stress Concerns about patient s coping and stress?: No Concerns about patient s caregiver s coping and stress?: Unable to Assess Values and Beliefs Cultural or advent practices that may impact discharge planning and/or medical care?: No (Lutheran) Initial Discharge Planning Anticipated discharge disposition: Home Transportation Available for Discharge: Private Vehicle, Family or Friend Anticipated DME: unknown at this time Anticipated Services at Discharge: Outpatient follow up, Outpatient clinical services (ie: lab draws, transfusions, injectables) Patient Assessment Completed: Initial Expected Discharge Date: TBD Discharge Planning Summary Met with patient and family to complete initial assessment, introduced self and role. Discussed discharge planning and recommended disposition and pt is declining Home Health at discharge. Patient states she has friends and neighbors that will assist her at discharge. Encouraged Patient to let us know if she reconsiders and we can obtain [facility] services for discharge. Patient states she will have transportation Home at discharge. Anticipated discharge level of care: Home Internal Consultations: PT/OT/WRECKER DRIVER Case Management Plan :Interventions and Strategies Will continue to follow with medical team to monitor hospital course to identify any post acute services and medical follow up. No additional needs identified at this time. Leelee NEWTON RN [facility] Weekend Clinical Sheet Metal Apprentice Available on secure chat. Acute Physical Therapy Evaluation Prior to Admission AMPAC score(s): PRIOR LEVEL AM-PAC Mobility Raw Score: 24 Current AM-PAC score(s): CURRENT AM-PAC Mobility Raw Score: 19 Based on the above AM-PAC score(s) and PT clinical judgment, patient is a good candidate for discharge to (Pt would benefit from continued PT services and 23/01 supervision/assist in home setting if patients brother is able to provide, otherwise recommend detention facility) Mobility equipment available at home: straight cane, 2 wheeled walker ADL equipment available at home: shower bench Equipment needed for discharge: to be determined Current therapy frequency recommendation in acute: Therapy Frequency: 5 times a week Precautions and Weightbearing Status: Existing Precautions/Restrictions: fall cEEG Patient Safety Communication Prior to Visit: Nursing Subjective: Pt was agreeable to participate in therapy session Pain: General Pain Documentation (Adult, OB, Peds) Presence of Pain: denies pain/discomfort Presence of Pain Score (Auto-calculated): 0 Home Setting Residence: House Lives With: alone First floor setup: bedroom, tub shower Second floor setup: (basement) Number of stairs to enter home: 1 Number of stairs in home: 12 (to basement level) Mobility Equipment Available: straight cane, 2 wheeled walker ADL Equipment Available: shower bench Home Environment Details: pt reports living home alone, being very active, mowing her lawn, attending activities with friends, driving Previous Level of Function Prior level ADL Overview: Independent with all ADLs Dominant Hand: Right Bed Mobility/Transfers: independent Ambulation Skills: independent Assistive Device: none used Level of Ambulation: community Prior Level of Function Details: Pt is very active prior to admission, one recent fall Objective/Observation: Vitals/Vitals Responses to Treatment: WFL O2 Device: room air Cognition Overall Cognitive Status: Within Functional Limits Arousal/Alertness: Appropriate responses to stimuli Orientation Level: Oriented X4 Following Commands: Follows all commands and directions without difficulty Vision Screen Currently wearing corrective lenses: Reading only Speech Speech: no gross deficits noted Hearing Hearing: no gross deficits noted Extremity Assessments: RLE Assessment RLE Assessment: Within Functional Limits LLE Assessment LLE Assessment: Within Functional Limits Sensation Overall Sensation: Intact Skin Integrity Skin Integrity Description: WFL Edema Edema: none noted Mobility Assessment: Supine to Sit Mobility Walton Level: Supine->Sit: supervision Bed Features/Set-up: Supine->Sit: Head of bed elevated Skilled Rationale: Positioning, Hand placement, Verbal cues, Sequencing Balance: Sitting Balance Static Sitting-Level of Assistance: Supervision Dynamic Sitting-Level of Assistance: Standby Standing Balance Static Standing-Level of Assistance: Stand-by assist Dynamic Standing-Level of Assistance: Contact guard, Minimum assistance Standing-Balance Support: Gait belt, 2 wheeled walker Skilled Rationale: Positioning, Sequencing, Hand placement, Verbal cues Standing Balance Skilled Intervention/Details: Pt completed standing throughout session with contact guard assist, progressing to stand by assist with WW Transfer Assessment: Sit to Stand Transfer Walton Level: Sit->Stand: stand-by assist Assistive Device: Sit->Stand: gait belt, 2 wheeled walker Skilled Rationale: Positioning, Sequencing, Hand placement, Verbal cues Skilled Intervention/Details: Sit->Stand: Multiple sit to stand transfers with stand by assist, cues for hand placement with WW Gait/Functional Mobility: Gait Assessment Walton Level: Gait: (contact guard/stand by) Assistive Device: Gait: gait belt, 2 wheeled walker (with and without AD) Ambulation Distance (Feet): (20-75 feet multiple times) Gait Deviations Identified: decreased william, decreased gait speed, decreased heel strike, decreased step length, decreased stride length, decreased weight shifting Gait Skilled Rationale: verbal, upright posture, increase step length Skilled Intervention/Details - Gait: Pt completed gait training throughout session mulitple times. pt initially completed gait training without AD with contact guard assist, generalized unsteadiness but attempting to manage lines. Pt completed further gait training with WW progressing to stand by assist, no LOB or unsteadiness but slow gait pattern. pt completed gait around objects, turning, and over objects with good safety awareness and no LOB Stairs: Outcome Score(s): CURRENT [facility] Basic Mobility Inpatient Short Form Turning over in bed: 4 - No Assistance Sitting/standing from chair: 3 - A Little Assistance Moving from lying on back to sittin - A Little Assistance Moving to and from bed to chair: 3 - A Little Assistance Walk in hospital room: 3 - A Little Assistance Climbing 3-5 steps with a railin - A Little Assistance CURRENT [facility] Mobility Raw Score: 19 CURRENT [facility] Mobility Functional Limitation/Modifier: 41.77% Currently Impaired in Basic Mobility - CK Interventions: Assessment & Plan: Patient was admitted for LEVEL A STROKE ALERT and seen for therapy evaluation related to deficits in functional mobility. Exam findings include impairments in: Strength, Balance, Posture, Transfers, Gait/Locomotion, Motor control, Aerobic capacity/endurance, Neuromotor development and sensory integration. These impairments contribute to functional limitations including Ambulation/locomotion pain, Decreased ambulation distance/endurance, Difficulty stair climbing/descent, Increased fall risk, Limited standing tolerance, Difficulty with bed mobility, Difficulty with transfers, Decreased functional mobility. Current clinical presentation is Evolving - changing/inconsistent clinical characteristics (Moderate). Patient history factors impacting Plan Of Care include . Patient will benefit from skilled physical therapy to address these impairments, functional limitations, and participation restrictions and has good rehab potential to achieve therapy goals. Planned Therapy Interventions: balance training, bed mobility training, endurance, functional activity tolerance, gait training, neuromuscular re-education, postural re-education, strengthening, transfer training Patient Instruction/Education this session: Patient was provided specific education on Discharge recommendations. Education provided in Verbal format, and demonstration of understanding with report of no further education needed. All questions answered. Plan for next session: Continue to progress gait distance Acute PT Goals Plan of Care by Jenny Cantu PT at 04/13/2023 2:57 PM Version 1 of 1 Problem: PT - Balance/Coordination/Neuro Re-Education Goal: Standing Dynamic/Static Balance Description: Pt will perform standing balance tasks for 8 minutes with supervision assistance with least restrictive device in order to improve functional mobility and safety with standing tasks. Outcome: Ongoing Problem: PT - Mobility Goal: Ambulation Description: Pt will ambulate 125 feet with least restrictive device with supervision to improve ability to navigate home environment. Outcome: Ongoing Problem: PT - Transfers Goal: Supine <-> Sit Description: Pt will perform bed mobility with flat bed & no rail with supervision in order to improve functional mobility and safety. Outcome: Ongoing Goal: Sit <-> Stand Description: Pt will perform sit to/from stand transfers with supervision with least restrictive device in order to improve functional mobility and safety. Outcome: Ongoing PT treatment consisted of the following to progress towards the above goal(s): PT Evaluation and Treatment Time PT Evaluation (Moderate) Time Entry: 24 Gait Training Time Entry: 10 Evaluating Therapist: Jenny Cantu PT Additional Details: PT Co-Eval/Treatment Information Co-evaluation/co-treatment performed?: Yes, simultaneous billable skilled care was necessary due to medical complexity and functional deficits Other discipline: OT Rationale for need to co-eval/treat: cognitive issues, coordination issues, postural control Co-treatment goal focus: balance, mobility Evaluation Complexity Components History: Moderate (1-2 personal factors and/or comorbidities) Body Systems Review: Moderate (Addressing a total of 3 or more elements) Clinical Presentation: Evolving - changing/inconsistent clinical characteristics (Moderate) Clinical Decision Making: Moderate Time In: 0940 Time Out: 1014 Total Visit Time: 34 minutes Total Treatment Time (skilled, billable minutes): 34 minutes PPE used during patient interaction: facemask, gloves Patient location at end of session: chair Alarms on at end of session: chair alarm Needs in reach. Upon discontinuation of Acute Care Physical Therapy Services or patient discharge from the hospital this note represents the current Physical Therapy Discharge Summary. BRIEF VIDEO EEG NOTE: This vEEG was consistent with left temporal cerebral dysfunction and a mild diffuse encephalopathy. There was no epileptiform discharges or seizures as of 1PM on 04/13/23. Sharita Bo DO Epilepsy Attending NEUROVASCULAR STROKE SERVICE Daily Progress Note IDENTIFYING INFORMATION Shakila Perez MR# [id number] 04/13/2023 HISTORY OF PRESENT ILLNESS Shakila Perez is a 83 y.o. female with PMH significant for HTN, possible prior stroke, and CHF who presented to OSH on 04/11 for R hand clumsiness and dysarthria. The hand clumsiness resolved with 1 hour, but the dysarthria has been persistent. MRI, CTH, and CTA on 04/11 at [facility] was all negative for acute stroke or LVO. Overnight, the patient developed left side neglect. Discussed with nursing staff at OSH and it is unclear what time this began. Pt was transferred for further workup given worsening exam. On arrival, NIH 8, CTH without large territory stroke, CTA no LVO. CTP with subtle prolonged Tmax in the R MCA territory. No acute interventions due to no LVO and outside of treatment window. INTERVAL HISTORY 04/13: MRI negative for acute stroke, NIH 0 today. EEG ordered PHYSICAL EXAM Gen: awake, alert, NAD HEENT: normocephalic, no scalp lesions or tenderness Neck: trachea midline No JVD CV: +S1S2, RRR, no m/r/g Lungs: LCTA bilaterally with equal chest rise Abd: soft, nontender, nondistended, +BS x4 quadrants Extrem: Warm and well perfused, no edema, 2+ pulses bilaterally Neuro: Oriented x4, ARVIZU x 4, sensation intact and equal bilaterally to light touch CN II - All visual julien intact CN II/III - PERRLA CN III/IV/ - EOMI CN V - Light touch to face intact in V1-3 CN VII - Facial movement intact and symmetrical bilaterally CN VIII - Hearing intact CN X - Cough present CN XI - muscular movement of shoulders and sternocleidomastoid muscles intact and equal bilaterally CN XII - midline protrusion of tongue MOTOR EXAMINATION: No drift NIHSS 04/13/2023 Provider NIH Stroke Scale NIH Interval (Provider): admission NIH Level of Conciousness (Provider): 0 NIH LOC Questions (Provider): 0 NIH LOC Commands (Provider): 0 NIH Best Gaze (Provider): 2 NIH Visual (Provider): 2 NIH Facial Palsy (Provider): 0 NIH Left Arm Motor (Provider): 0 NIH Right Arm Motor (Provider): 0 NIH Left Leg Motor (Provider): 0 NIH Right Leg Motor (Provider): 0 NIH Limb Ataxia (Provider): 0 NIH Sensory (Provider): 1 NIH Best Language (Provider): 0 NIH Dysarthria (Provider): 1 NIH Extinction and Inattention (Provider): 2 NIH Total Score (Provider): 8 ASSESSMENT AND PLAN Neuro: TIA vs seizure, no acute stroke CTH: no hemorrhage or large territory stroke CTA brain/neck: no LVO or critical stenosis. Moderate L subclavian stenosis CTP: slightly prolonged TMAX in the R MCA MRI brain no acute stroke TTE pending cEEG pending LDL 82 HgbA1c p ASA 81 mg Atorvastatin 40 mg Goal BP normotensive Ischemic Stroke Core Measures -NIHSS on admission 8 -Patient has been started on Mechanical (SCD's) and Pharmacological (SQ heparin/Lovenox) DVT prophylaxis. -Antiplatelet therapy has been initiated, Aspirin 81 mg daily. -Anticoagulation therapy was not indicated for this patient -Patients LDL 82 and HgbA1c were checked and the patient will be discharged on Atorvastatin 40 mg daily. -Dysphagia screening ordered, and will be completed prior to patient receiving oral intake. -Stroke education booklet has been ordered and will be provided by the RN that includes both written and verbal education to the patient and family regarding ischemic strokes. We have reviewed the patient's personal modifiable risk factors including: HTN as well as education on reducing these risk factors -Patient is being assessed for Rehab by PT/OT/Speech and PM&R if indicated. [place]: creat 1.95 on admission, 1.89 today -NS @ 75 ml/hr -continue to monitor -hold home losartan HTN (POA) -hold home losartan due to [place] Disposition: Shakila Perez will likely be discharged to home on CHANTELL Rodney 04/13/2023 11:10 AM VITAL SIGNS Temp: [98 F (36.7 C)-98.8 F (37.1 C)] 98.1 F (36.7 C) Pulse (Heart Rate): [78-103] 78 Resp Rate: [15-32] 18 BP: (165-241)/(74-113) 165/91 O2 Sat (%): [85 %-99 %] 96 % Weight: [84.5 kg (186 lb 3.2 oz)-90.9 kg (200 lb 8 oz)] 84.5 kg (186 lb 3.2 oz) Oxygen Therapy: Oxygen Therapy O2 Sat (%): 96 % O2 Device: room air Flow (L/min): 2 Oxygen Delivery/Consumption Hemodynamics BSA (Calculated - sq m): 1.88 m2 Intake/Output: Intake/Output Summary (Last 24 hours) at 04/13/2023 1110 Last data filed at 04/13/2023 0600 Gross per 24 hour Intake 302.5 ml Output 1880 ml Net -1577.5 ml LABS/CULTURES Lab Results Component Value Date WBC 7.21 04/13/2023 HGB 10.9 (L) 04/13/2023 HCT 33.0 (L) 04/13/2023 PLATELET 221 04/13/2023 MCV 86.8 04/13/2023 Lab Results Component Value Date SODIUM 137 04/13/2023 POTASSIUM 5.0 04/13/2023 CHLORIDE 105 04/13/2023 CO2 23 04/13/2023 BUN 29 (H) 04/13/2023 CREATSERUM 1.89 (H) 04/13/2023 GLUCOSE 80 04/13/2023 Lab Results Component Value Date CHOLESTEROL 150 04/13/2023 TRIG 111 04/13/2023 HDL 46 04/13/2023 LDLCALC 82 04/13/2023 No results found for: HGBA1C Lab Results Component Value Date ALBUMIN 3.8 04/13/2023 , No results found for: CPK , TROP IMAGING/DIAGNOSTIC STUDIES MRI BRAIN WITHOUT CONTRAST Final Result IMPRESSION: 1. No acute infarct. 2. Chronic small vessel ischemic disease. I personally viewed and interpreted these images and I have reviewed and approved this report. CEREBRAL PERFUSION ANALYSIS Final Result IMPRESSION: Questionable perfusion deficit in the posterior aspect of the right cerebral hemisphere noted in the time of drain sequences is favored to represent artifact given no associated perfusion abnormality in any other perfusion maps. Clinical correlation is ultimately needed. ANGIO BRAIN/NECK Final Result IMPRESSION: 1. 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 Otherwise no large vessel occlusion or significant stenosis of the carotid or vertebral system. 2. 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 3. Thyroid lesions. These are of indeterminate etiology and would be better assessed by ultrasound if clinically indicated. I personally viewed and interpreted these images and I have reviewed and approved this report. STROKE HEAD-STROKE ALERT ONLY Final Result IMPRESSION: No acute intracranial hemorrhage, or CT signs of acute large territory infarction. No significant intracranial mass effect. Findings were discussed with CHANTELL Nice at 2:00 PM on April 12, 2023. I personally viewed and interpreted these images and I have reviewed and approved this report. CARDIOGRAM (Results Pending) MEDICATIONS aspirin 81 mg Oral Daily Or aspirin 300 mg Rectal Daily heparin 5,000 Units Subcutaneous Q8H Senna 8.6 mg Oral QAM Or Senna 8.6 mg Per NG tube QAM Associated attestation - Patricio Ling MD - 04/15/2023 6:10 PM EDT I have seen and independently examined the patient on 04/13/2023. I reviewed the laboratory and imaging data. The management plan was constructed in discussion with me. I agree with the note as written by the nurse practitioner: 83 y/o woman with h/o HTN, possible prior stroke, and CHF p/w R hand clumsiness and dysarthria. The hand clumsiness resolved with 1 hour, but the dysarthria has been persistent. MRI, CTH, and CTA on 04/11 at [facility] was all negative for acute stroke or LVO. Overnight, the patient developed left side neglect. Discussed with nursing staff at OSH and it is unclear what time this began. Pt was transferred for further workup given worsening exam. On arrival, NIH 8, CTH without large territory stroke, CTA no LVO. CTP concerning for hyperperfusion in left temporal lobe. No acute interventions due to no LVO and outside of treatment window. MRI brain - no acute stroke. LDL-82. No acute events overnight. Stable neurological exam with NIHSS-8. ASA and statin. Follow up EEG and TTE. OT/PT/WRECKER DRIVER Acute Occupational Therapy Evaluation Prior to Admission AM-PAC Score: PRIOR LEVEL AM-PAC Activity Raw Score: 24 PRIOR LEVEL AM-PAC Mobility Raw Score: 24 Current AM-PAC score(s): CURRENT AM-PAC Mobility Raw Score: 19 CURRENT AM-PAC Activity Raw Score: 20 Based on the above AM-PAC score(s) and OT clinical judgment, discharge destination recommendation is: Care Home Facility (Anticipate progression to home with family (brother & sister in law) assist and Home health) Barriers to discharge home: Lack of social support to meet functional needs at home, Patient needs assistance with functional mobility, Patient needs assistance with ADLs, Patient needs assistance with IADLs (see note below), Patient needs assistance with self-care for medical condition (see note below) Mobility equipment available at home: straight cane, 2 wheeled walker ADL equipment available at home: shower bench Equipment recommendations for discharge: shower chair Current therapy frequency recommendation(s) in acute: 5 times a week Precautions and Weightbearing Status:Fall OT Existing Precautions/Restrictions: fall cEEG Patient Safety Communication Prior to Visit: Nursing Subjective: Pt supine and agreeable to OT Pain: General Pain Documentation (Adult, OB, Peds) Presence of Pain: denies pain/discomfort Presence of Pain Score (Auto-calculated): 0 Home Setting Residence: House Lives With: alone First floor setup: bedroom, tub shower Second floor setup: (basement) Number of stairs to enter home: 1 Number of stairs in home: 12 (to basement level) Mobility Equipment Available: straight cane, 2 wheeled walker ADL Equipment Available: shower bench Home Environment Details: pt reports living home alone, being very active, mowing her lawn, attending activities with friends, driving Previous Level of Function Prior level ADL Overview: Independent with all ADLs Dominant Hand: Right Bed Mobility/Transfers: independent Ambulation Skills: independent Assistive Device: none used Level of Ambulation: community Prior Level of Function Details: Pt is very active prior to admission, one recent fall IADL History IADLs: independent Primary Language: Bulgarian Home Management Skills: independent Medication Management: independent Meal Prep Responsibility: Primary Laundry Responsibility: Primary IADL Comments: Drives Objective/Observation: Vitals/Vitals Responses to Treatment: VSS O2 Device: room air Vision Screen Currently wearing corrective lenses: Reading only Speech Speech: no gross deficits noted Hearing Hearing: no gross deficits noted Cognition Overall Cognitive Status: Within Functional Limits Arousal/Alertness: Appropriate responses to stimuli Orientation Level: Oriented X4 Following Commands: Follows all commands and directions without difficulty Safety Judgment: Good awareness of safety precautions Awareness of Errors: Assistance required to correct errors made Deficits: Fully aware of deficits Attention Span: Appears intact ADLs assessment: ADL Assessment: Toileting Deficit, Bathing Deficit, LE Dressing Deficit Eating Assistance: Independent Eating Location: chair Grooming Assistance: Contact guard assist Grooming Location: standing at sink Bathing Assistance: Minimal Bathing Location: seated in chair UE Dressing Assistance: Modified independent UE Dressing Location: seated in chair LE Dressing Assistance: Modified independent LE Dressing Location: seated in chair Toilet Assistance: Contact guard assist Toileting Location: toilet Extremity Assessments: RUE Assessment RUE Assessment: AROM WFL, Strength WFL, Tone WFL LUE Assessment LUE Assessment: AROM WFL, Strength WFL, Tone WFL Balance: Sitting Balance Static Sitting-Level of Assistance: Supervision Dynamic Sitting-Level of Assistance: Standby Standing Balance Static Standing-Level of Assistance: Stand-by assist Dynamic Standing-Level of Assistance: Contact guard, Minimum assistance Standing-Balance Support: Gait belt, 2 wheeled walker Skilled Rationale: Verbal cues, Tactile cues, Full extension to upright positioning/posture Standing Balance Skilled Intervention/Details: SBA marina WW use and CGA with out device Neuro: Sensation Overall Sensation: Intact Proprioception Proprioception: intact Gross Coordination Gross Coordination: bilat UE intact Fine Motor Coordination Additional Documentation: (WFL manipulation skills) Skin and Edema: Skin Integrity Skin Integrity Description: Abrasion, Redness, Bruising (Bilateral KNes) Edema Edema: present (Trace knees) Mobility Assessment: Supine to Sit Mobility Walton Level: Supine->Sit: supervision Physical Assist: Supine->Sit: (1 person) Bed Features/Set-up: Supine->Sit: Head of bed elevated Skilled Rationale: Verbal cues, Technique of activity, Hand placement Skilled Intervention/Details: Supine->Sit: Increased time due to multiple lines Transfer Assessment: Sit to Stand Transfer Walton Level: Sit->Stand: stand-by assist Physical Assist: Sit->Stand: (1 person) Assistive Device: Sit->Stand: gait belt, 2 wheeled walker Skilled Rationale: Positioning, Hand placement, Verbal cues, Sequencing, Full extension to upright positioning/posture Skilled Intervention/Details: Sit->Stand: Cues for hands placement Stand to Sit Transfer Walton Level: Stand->Sit: stand-by assist Physical Assist: Stand->Sit: (1 person) Assistive Device: Stand->Sit: gait belt, 2 wheeled walker, armed chair Skilled Rationale: Tactile cues, Verbal cues, Technique of activity, Controlled descent for sitting Skilled Intervention/Details: Stand->Sit: cues for proximity to chair Toilet Transfer Walton Level: Toilet: stand-by assist Physical Assist: Toilet: (1 person) Assistive Device: Toilet: gait belt, grab bars Skilled Rationale: Verbal cues, Hand placement, Controlled descent for sitting, Technique of activity Functional Mobility: Functional Mobility Walton Level: Functional Mobility/Gait: contact guard assist Physical Assist: Functional Mobility/Gait: (1 person) Assistive Device: Functional Mobility/Gait: 2 wheeled walker, gait belt Functional Mobility Distance: Distance needed to access restroom Ambulation Distance (Feet): 25 Functional Mobility Deficits: Activity tolerance, Balance, Slowed gait speed Functional Mobility Skilled Rationale: Proper pacing, Tactile cues, Verbal cues, Walker management/safety, Facilitate postural control Skilled Intervention/Details - Functional Mobility/Gait: Pt with R drift and mild LOB with navigation/turns to R side Outcome Score(s): CURRENT AM-PAC Daily Activity Inpatient Short Form Putting on/Taking Off Lower Body Clothin - A Little Assistance Bathin - A Little Assistance Toiletin - A Little Assistance Putting on/Taking Off Upper Body Clothin - A Little Assistance Groomin - No Assistance Eatin - No Assistance CURRENT AM-PAC Activity Raw Score: 20 CURRENT AM-PAC Activity Functional Limitation/Modifier: 38.32% Currently Impaired in Daily Activity - CJ Interventions: Intervention 1 Intervention Name: Education on discharge recommendation/DME Details: Educated in methods to maintain strength and promote safe modified independence while in hospital to prevent deconditioning and functional decline. Provided positioning and strength related education including fall precautions associated with current functional level and ongoing recovery processes in order to promote safe mobility and maintain safe level of care while in acute environment. Assessment & Plan: Shakila Perez is a 83 y.o. female who has a past medical history of Arthritis and Essential hypertension, benign. Admitted with stroke alert and seen for therapy evaluation related to mobility and Occupational performance deficits. Exam findings include impairments in: aerobic capacity, balance, endurance, strength, transfers, posture. These impairments contribute to occupational performance limitations including bathing, toileting, functional mobility, ADL transfers, driving/transportation, home management tasks, shopping/errands. The following factors impact the plan of care: None Patient will benefit from skilled occupational therapy to address these impairments, occupational performance limitations, and participation restrictions. Patient's rehab potential is: good, to achieve stated therapy goals. Planned Therapy Interventions (OT Eval): ADL retraining, IADL retraining, balance training, functional activity tolerance, strengthening, transfer training Patient Instruction/Education this session:Patient was provided education on DME recommendations (Shower seat), Discharge recommendations and ROM/Therapeutic exercises. Education provided in Verbal and Demonstration format, and demonstration of understanding with need for on-going education. All questions answered. Plan for next session: Modified ADL and dynamic balance Acute OT Goals Plan of Care by Jennifer Agarwal OT at 04/13/2023 10:16 AM Version 1 of 1 Problem: OT - ADLs Goal: Grooming Description: Pt will complete grooming in standing with independence for improved ability to safely complete ADLs. Outcome: Ongoing Goal: Toileting Description: Pt will complete toileting task including clothing management with supervision for improved ability to safely complete self-care activities. Outcome: Ongoing Goal: Bathing Description: Pt will perform full body bathing/dressing routine with modified independence while seated for improved ability to complete self-care activities. Outcome: Ongoing Problem: OT - Cognition Goal: Cognition Home Maintenance Description: Pt will complete simulated home maintenance task (medication management, finance management, etc.) with independence to promote safety and success at discharge destination. Outcome: Ongoing Problem: OT - Strength/ROM Goal: Strength/ROM ADL Participation Description: Pt will demonstrate independence with UE exercise program to prevent deconditioning while in the hospital and to maximize UE ROM/coordination/strength for ADL participation. Outcome: Ongoing OT treatment consisted of the following to work and progress towards the above goal(s): OT Evaluation and Treatment Time OT Evaluation (Moderate) Time Entry: 25 Self Care/Home Management (ADLs) Time Entry: 11 Evaluating Therapist: Jennifer Agarwal OT Additional Details: OT Co-Eval/Treatment Information Co-evaluation/co-treatment performed?: Yes, simultaneous billable skilled care was necessary due to medical complexity and functional deficits Other discipline: PT Rationale for need to co-eval/treat: postural control (Initial safe mobilization assessment) OT Evaluation Complexity Occupational Profile and Client History: Moderate - expanded history Assessment of Occupational Performance: Moderate (3-5 performance deficits) Clinical Decision/Performance Deficits: Moderate (detailed assessments w/several treatment options) Time In: 0940 Time Out: 1016 Total Visit Time: 36 minutes Total Treatment Time (skilled, billable minutes): 36 minutes PPE used during patient interaction: facemask, gloves Patient location at end of session: chair Alarms on at end of session: chair alarm Needs in reach. Upon discontinuation of Acute Care Occupational Therapy Services or patient discharge from the hospital this note represents the current Occupational Therapy Discharge Summary. Received consult for swallow evaluation. However, patient passed [place] Swallow Screening by nursing. Swallow eval by WRECKER DRIVER will not be completed at this time unless this service notified of change in status or re-consult for swallow eval placed. Attempt to see pt for speech/language/cognitive evaluation; however, upon chart review, patient's MRI Brain is negative for acute intracranial findings; now has EEG pending. Given MRI was negative acute findings, WRECKER DRIVER evaluation not indicated at this time. Please re-consult as needed. No charge. TAHIRA Seo, CCC-WRECKER DRIVER, CBIS License # [id number] Pager #: [phone] documented in this encounter [facility] 04-14-2023 Plan of care note Problem: PT - Balance/Coordination/Neuro Re-Education Goal: Standing Dynamic/Static Balance Description: Pt will perform standing balance tasks for 8 minutes with supervision assistance with least restrictive device in order to improve functional mobility and safety with standing tasks. Outcome: Met This Shift Problem: PT - Mobility Goal: Ambulation Description: Pt will ambulate 125 feet with least restrictive device with supervision to improve ability to navigate home environment. Outcome: Met This Shift Problem: PT - Transfers Goal: Supine <-> Sit Description: Pt will perform bed mobility with flat bed & no rail with supervision in order to improve functional mobility and safety. Outcome: Met This Shift Goal: Sit <-> Stand Description: Pt will perform sit to/from stand transfers with supervision with least restrictive device in order to improve functional mobility and safety. Outcome: Met This Shift [facility] 04-14-2023 Procedure note Associated Ord er(s): GENERAL PROCEDURE Final Long-Term Monitoring EEG Report: Start Time: 04/13/23920 End Time: 04/14/23919 History: This is an 83 year old female who presents with R hand clumsiness and dysarthria. Indication: To evaluate for possible seizures. Technical Description: This is a 21-channel digital EEG recording with time-locked video and single-channel electrocardiogram. Electrodes are placed according to the 10 to 20 International System. The patient was monitored continuously by EEG technicians with EEG reviewed intermittently and annotations made to the EEG record every two hours. Portions of this record are reviewed using bandpass filters of 1 to 70 Hz and sensitivity of 7mV/mm. EEG Findings Background: Initially, there was a posterior dominant rhythm that was 7-8 Hz and was symmetric and reactive to eye closure. There was intermittent generalized slowing that consisted of 30-40 mV semi-rhythmic delta activity. Towards the latter half of the recording, this was replaced by a PDR of 8-9 Hz. Presence of Sleep Structures: There was a transition to sleep with well developed K complexes and sleep spindles. Focal Slowing: There was left temporal slowing that consisted of 40-50 mV semi-rhythmic delta activity. Focal Asymmetry: No Reactivity: Yes Rhythmic or Periodic Patterns: No Sporadic ED's: No Clinical or Electrographic seizure: No IIC: No Hyperventilation: N/A Photic stimulation: N/A EKG: RRR Other Clinical Events: None Impression: This vEEG was consistent with left temporal cerebral dysfunction. There was also a mild diffuse encephalopathy that resolved towards the latter half of the recording. There were no epileptiform discharges or seizures. Sharita Bo DO Epilepsy Attending [facility] Procedure note Associated Ord er(s): GENERAL PROCEDURE Final Long-Term Monitoring EEG Report: Start Time: 04/13/23920 End Time: 04/14/23919 History: This is an 83 year old female who presents with R hand clumsiness and dysarthria. Indication: To evaluate for possible seizures. Technical Description: This is a 21-channel digital EEG recording with time-locked video and single-channel electrocardiogram. Electrodes are placed according to the 10 to 20 International System. The patient was monitored continuously by EEG technicians with EEG reviewed intermittently and annotations made to the EEG record every two hours. Portions of this record are reviewed using bandpass filters of 1 to 70 Hz and sensitivity of 7mV/mm. EEG Findings Background: Initially, there was a posterior dominant rhythm that was 7-8 Hz and was symmetric and reactive to eye closure. There was intermittent generalized slowing that consisted of 30-40 mV semi-rhythmic delta activity. Towards the latter half of the recording, this was replaced by a PDR of 8-9 Hz. Presence of Sleep Structures: There was a transition to sleep with well developed K complexes and sleep spindles. Focal Slowing: There was left temporal slowing that consisted of 40-50 mV semi-rhythmic delta activity. Focal Asymmetry: No Reactivity: Yes Rhythmic or Periodic Patterns: No Sporadic ED's: No Clinical or Electrographic seizure: No IIC: No Hyperventilation: N/A Photic stimulation: N/A EKG: RRR Other Clinical Events: None Impression: This vEEG was consistent with left temporal cerebral dysfunction. There was also a mild diffuse encephalopathy that resolved towards the latter half of the recording. There were no epileptiform discharges or seizures. Sharita Bo DO Epilepsy Attending documented in this encounter [facility] 04-14-2023 Plan of care note Problem: OT - ADLs Goal: Grooming Description: Pt will complete grooming in standing with independence for improved ability to safely complete ADLs. Outcome: Progressing Toward Goal Goal: Bathing Description: Pt will perform full body bathing/dressing routine with modified independence while seated for improved ability to complete self-care activities. Outcome: Progressing Toward Goal Problem: OT - Cognition Goal: Cognition Home Maintenance Description: Pt will complete simulated home maintenance task (medication management, finance management, etc.) with independence to promote safety and success at discharge destination. Outcome: Progressing Toward Goal Problem: OT - ADLs Goal: Toileting Description: Pt will complete toileting task including clothing management with supervision for improved ability to safely complete self-care activities. Outcome: Ongoing Problem: OT - Strength/ROM Goal: Strength/ROM ADL Participation Description: Pt will demonstrate independence with UE exercise program to prevent deconditioning while in the hospital and to maximize UE ROM/coordination/strength for ADL participation. Outcome: Ongoing [facility] 04-14-2023 Hospital Discharge instructions Ben Murphy APRN-GLUE LINE OPERATOR - 04/14/2023 6:30 AM EDT Please take these discharge instructions to your primary care doctor follow appointment to show them,keep them for your reference and refer to them often for follow up appointments.It is best to write your appointments on a personal calendar so you do not miss them,call if you need to change any appointments please. Education: What are the most common symptoms of stroke? The following are the most common symptoms of stroke. However, each individual may experience symptoms differently. If any of these symptoms are present, call 911 (or your local ambulance service) immediately. Treatment is most effective when started immediately. Symptoms may be sudden and include: -Weakness or numbness of the face, arm, or leg, especially on one side of the body -Confusion or difficulty speaking or understanding -Problems with vision such as dimness or loss of vision in one or both eyes -Dizziness or problems with balance or coordination -Problems with movement or walking -Severe headaches with no other known cause, especially if sudden onset All of the above warning signs may not occur with each stroke. Do not ignore any of the warning signs, even if they go away - take action immediately. The symptoms of stroke may resemble other medical conditions or problems. Always consult your physician for a diagnosis We have provided both written and verbal education to the patient and family regarding ischemic and hemorrhagic strokes. We have discussed the warning signs/symptoms as well as causes of stroke. We have discussed the importance of activating 911/EMS in the event of these symptoms. We have reviewed the patient's personal risk factors as well as education on reducing these risk factors. [facility] Personalized Treatment Plan My Risk Factors Include: [x] High Blood Pressure [] Diabetes [x] High Cholesterol [] Heart Disease [] Atrial Fibrillation (Irregular Heart Rate) [] Smoking [] Obesity [] Clotting Disorder [] Alcohol Abuse [] Drug Abuse [] Prior History [] Family History [] Obstructive Sleep Apnea My Follow-Up Treatment Goals: [x] Blood Pressure < 140/90 [] Stop Smoking Immediately [x] LDL < 70 [] HgA1C levels <7% [] Decrease BMI to <25 [x] Take all ordered medications [] Avoid non-prescription or over the counter medication not cleared by your physician [x] Limit Alcohol use to no more than 1 drink per day for females and 2 drinks per day for males [x] Do not drive for at least 6 months until cleared by PCP or OT driving evaluation [x] Follow up with PCP within a week of discharge to home [x] Follow-up with Neurovascular [x] Follow-up with Occupational,physical and speech therapy if ordered [x] Watch out for depression and seek treatment if needed CONTACTS FOR NEUROVASCULAR SERVICE: - You may call your neurovascular doctors office at [phone], if you have questions between 8:30 am and 4:30 pm. - For off hours or the weekend you may call the office or the hospital chief lock operator at and ask for the stroke resident orthotic/prosthetic practitioner to be paged. - If you have any questions or needs, please call Shahnaz Sneed RN, stroke senior clinical sas programmer at [phone] Mon-Fri from 7-3 ? Any questions concerning your discharge instructions please call Case Management Office [phone] Patient Stroke Resources: [facility] Stroke Support The [facility] Stroke Support Group is for stroke survivors, friends, and family members. Meets every Monday from 12:00PM to 1:00PM at [facility] ([facility]), [address] [place] [address] Eunice Velasco, at [phone]. If you are outside of the [facility], contact The [place] [employer] at www.strokeassociation.org or 7-750-1-stroke, or for supports groups in your area. Also refer to the Stroke Education booklet you received as part of your stroke education while you were a patient for additional resources Additional Contacts: Evening and Weekend Contacts If you have questions or concerns during evening, weekend, or holiday hours, please call: -[facility] and [facility] chief lock operator at [phone]. -[facility] chief lock operator at [phone] Ask the chief lock operator to page the on-call doctor for Neurovascular service, they were responsible for your care while you were in the hospital. If you having an emergency, call 911. *In the event of an Emergency: If you have a physical or psychiatric emergency call 911 or go to your local emergency department. You should also call your outpatient provider's emergency number. Other reference numbers: [facility] Intake Office at [phone]; [facility] at [phone]; or Suicide Prevention Hotline at 535-336-5232. *Helpful phone numbers: Free Crisis Hotline: 0-745-805-PREZ ( ) Suicide Hotline: 595.787.2070 Seniors Suicide Hotline: 368.865.6560 [facility]: [phone] [facility]: [phone] (free counseling) [facility] Access Hotline: 587-875-EFQU (019-981-8696) 24-hour crisis text hotline: Text the word 4hope to 263-261 for crisis support. Texting this number is free if you have Verizon, T-Mobile, [employer] or Sprint. [facility] Financial Assistance: If you want to learn more about these programs, please call .There are three programs to help you with the cost of your medical care: Medicaid, Hospital Care Assurance Program (HCAP) & hansel If you are without Insurance and believe you may qualify for Medicaid/public assistance: The [facility] Department of Job and Family Services can now process worley (TANF), food (SNAP) and Medicaid Applications over the phone. Please call [phone] ([phone]) and apply over the phone or apply online at www.benefits.[place].gov. Monday-Monday 8am-12pm noon. Medication Assistance Programs [employer] members can buy 100+ common prescriptions for FREE, $3 or $6. Annual membership is $36 for individuals and $72 for families (up to 6 people, including pets). Sign up online or enroll at your nearest pharmacy! -[employer], web site can provide a significant number of coupons for medications at a much lower haddad. CHANTELL Gandhi - 04/14/2023 6:29 AM EDT Know your medicines Make sure you know why you are taking each medicine. Make a master list of all your medicines. Write down the medicine names and doctors' names. Include doses and side effects too. And write down why you take each medicine. Include all prescription and [id number] medicines, vitamins, and supplements. Keep this list up to date. Take a copy to each doctor visit. Know when you will run out of each medicine. Ask your pharmacist if there are ways the drugstore can remind you to refill your medicines so you do not run out. Write refill reminders on your calendar. Don't wait until you have a few pills left. Ask your pharmacist to plan your refills so that you can tack picker all your medicines at the same time. This can mean fewer trips to the drugstore. If we have prescribed you a new medication during your stay, please contact with your primary physician for refills ANTELL Goldberg - 04/14/2023 6:29 AM EDT Activity -- Please follow these instructions: -Advance your activity as you can tolerate - You may walk all you want. You may go up and down the steps. Use the railing for support - It is normal for your energy level and sleep patterns to change after a stroke - Take rest periods during the day as needed - Complete recovery may take several weeks, months, up to a year. Patience is hall. ANTELL Kramer - 04/15/2023 7:16 AM EDT Current Diet Orders Procedures DIET HEART HEALTHY - 4 GM SODIUM Standing Status: Standing Number of Occurrences: 1 ANTELL Goldberg - 04/14/2023 6:29 AM EDT Notify Your Doctor if you have any of the following: NEUROLOGICAL CHANGES-- Change in alertness Increased sleepiness Nausea and vomiting New onset of numbness or weakness in arms or legs New problems with your bowels or bladder New or worse problems with balance or walking Seizures, new or worsening UNRELIEVED HEADACHE PAIN-- New or increased pain unrelieved with pain medications Pain associated with nausea and vomiting Pain associated with other symptoms QUESTIONS OR PROBLEMS-- Any questions or problems that you are unsure about Deep Vein Thrombosis Symptoms Call your doctor or nurse right away if you have any signs of blood clots such as -Tender, swollen or reddened areas anywhere in your leg. -Numbness or tingling in your lower leg or calf, or at the top of your leg or groin -Skin on you leg looks pale or blue or feels cold to touch -Chest pain or have trouble breathing -Fever or chills documented in this encounter [facility] 04-14-2023 Progress note Formatting of t his note might be different from the original. I certify that this patient requires inpatient services at this time. I anticipate the expected length of stay will include at least two midnights. Inpatient services are due to the following medical concerns stroke. Plans for post hospitalization care will be discharge to [facility]. [facility] 04-13-2023 Plan of care note Problem: Patient Care Overview Goal: Plan of Care Review Outcome: Ongoing Goal: Individualization & Mutuality Outcome: Ongoing Goal: Discharge Needs Assessment Outcome: Ongoing Goal: Interdisciplinary Rounds/Family Conf Outcome: Ongoing Problem: Dysphagia (Adult) Goal: Identify Related Risk Factors and Signs and Symptoms Description: Related risk factors and signs and symptoms are identified upon initiation of Human Response Clinical Practice Guideline (CPG) Outcome: Ongoing Goal: Functional/Safe Swallow Description: Patient will demonstrate the desired outcomes by discharge/transition of care. Outcome: Ongoing Goal: Compensatory Techniques to Improve Safety/Function with Swallowing Description: Patient will demonstrate the desired outcomes by discharge/transition of care. Outcome: Ongoing Problem: Stroke (Ischemic) (Adult) Goal: Signs and Symptoms of Listed Potential Problems Will be Absent, Minimized or Managed (Stroke) Description: Signs and symptoms of listed potential problems will be absent, minimized or managed by discharge/transition of care (reference Stroke (Ischemic) (Adult) CPG). Outcome: Ongoing [facility] 04-13-2023 Plan of care note Problem: PT - Balance/Coordination/Neuro Re-Education Goal: Standing Dynamic/Static Balance Description: Pt will perform standing balance tasks for 8 minutes with supervision assistance with least restrictive device in order to improve functional mobility and safety with standing tasks. Outcome: Ongoing Problem: PT - Mobility Goal: Ambulation Description: Pt will ambulate 125 feet with least restrictive device with supervision to improve ability to navigate home environment. Outcome: Ongoing Problem: PT - Transfers Goal: Supine <-> Sit Description: Pt will perform bed mobility with flat bed & no rail with supervision in order to improve functional mobility and safety. Outcome: Ongoing Goal: Sit <-> Stand Description: Pt will perform sit to/from stand transfers with supervision with least restrictive device in order to improve functional mobility and safety. Outcome: Ongoing [facility] 04-13-2023 Note Acute Coronary Syndr ome (ACS): Initial Evaluation and Management: [email or web address] [email or web address] [facility] 04-13-2023 Plan of care note Problem: OT - ADLs Goal: Grooming Description: Pt will complete grooming in standing with independence for improved ability to safely complete ADLs. Outcome: Ongoing Goal: Toileting Description: Pt will complete toileting task including clothing management with supervision for improved ability to safely complete self-care activities. Outcome: Ongoing Goal: Bathing Description: Pt will perform full body bathing/dressing routine with modified independence while seated for improved ability to complete self-care activities. Outcome: Ongoing Problem: OT - Cognition Goal: Cognition Home Maintenance Description: Pt will complete simulated home maintenance task (medication management, finance management, etc.) with independence to promote safety and success at discharge destination. Outcome: Ongoing Problem: OT - Strength/ROM Goal: Strength/ROM ADL Participation Description: Pt will demonstrate independence with UE exercise program to prevent deconditioning while in the hospital and to maximize UE ROM/coordination/strength for ADL participation. Outcome: Ongoing [facility] 04-12-2023 Nurse Note On admission to [facility], from ED a dual RN initial assessment of skin condition was performed by Jarred Barragan RN and Leelee Schaefer RN. Skin Assessment: Skin not within defined limits. - Wound(s) identified: Yes - Photo taken and uploaded into notes in IHIS: Yes Sarkis Score: 13 LDA Added:Yes Jarred Barragan RN [facility] 04-12-2023 Note IMPRESSION: 1. 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 Otherwise no large vessel occlusion or significant stenosis of the carotid or vertebral system. 2. 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 3. Thyroid lesions. These are of indeterminate etiology and would be better assessed by ultrasound if clinically indicated. I personally viewed and interpreted these images and I have reviewed and approved this report. [facility] 04-12-2023 Note Acute Coronary Syndr ome (ACS): Initial Evaluation and Management: [email or web address] [email or web address] [facility] 04-12-2023 Physician Emergency department Note EMERGENCY DEPARTMENT ENCOUNTER CHIEF COMPLAINT Stroke alert NIELS Perez is a 83 y.o. female who has a past medical history of Arthritis and Essential hypertension, benign. This patient presents as a stroke alert. Patient presenting as a transfer from outside hospital for stroke alert. Patient initially presented to the hospital yesterday with a last known well of 10:00 a.m. on 04/11 2023. At that time she is presenting for right-sided weakness, difficulty using her right hand, dysarthria. She would CT head and CTA and MRI that were all negative for any acute infarct. She would a documented NIH of 0 at 3:20 p.m. yesterday. Patient is working with PT this morning and there was concern that she had left-sided frank-neglect. After neuro speak with the nursing staff at the outside hospital there is concern she may have had neglect overnight. New last known well of 1520 yesterday. Patient is not on blood thinners. Patient [facility] alert and oriented and hemodynamically stable. REVIEW OF SYSTEMS Review of systems including constitutional, skin, HEENT, eyes, CV, respiratory, GI, , MSK, endocrine, neurologic, psychiatric, heme reviewed and negative except as noted above. PAST MEDICAL HISTORY Past Medical History: Diagnosis Date Arthritis Essential hypertension, benign SURGICAL HISTORY Past Surgical History: Procedure Laterality Date TONSILLECTOMY CURRENT MEDICATIONS Current Outpatient Medications Medication Sig gliMEPIride 1 MG Tab TAKE 1 TABLET BY MOUTH DAILY losartan 100 MG Tab TAKE 1 TABLET BY MOUTH DAILY omeprazole [address] capsule TAKE ONE CAPSULE BY MOUTH EVERY DAY ALLERGIES No Known Allergies FAMILY HISTORY Family History Problem Relation Age of Onset Diabetes Mother Hypertension Mother Diabetes Father Hypertension Father SOCIAL HISTORY Social History Socioeconomic History Marital status: Spouse name: Not on file Number of children: Not on file Years of education: Not on file Highest education level: Not on file Occupational History Not on file Tobacco Use Smoking status: Never Smokeless tobacco: Never Substance and Sexual Activity Alcohol use: Not on file Drug use: Not on file Sexual activity: Not on file Other Topics Concern Not on file Social History Narrative Not on file Social Determinants of Health Financial Resource Strain: Not on file Food Insecurity: Not on file Transportation Needs: Not on file Physical Activity: Not on file Stress: Not on file Social Connections: Not on file Intimate Partner Violence: Not on file Housing Stability: Not on file PHYSICAL EXAM Vital Signs:BP (!) 205/101 Pulse 83 Temp 98.5 F (36.9 C) (Oral) Resp (!) 29 Ht 1.6 m (5' 3 ) Wt 90.9 kg (200 lb 8 oz) SpO2 98% BMI 35.52 kg/m Smoking Status Never Constitutional: Ill appearing, in no acute distress. HENT: Normocephalic and atraumatic. Oropharynx is clear and moist. Neck: Normal range of motion. Neck supple. Cardiovascular: Normal rate and regular rhythm. No murmurs, rubs, gallops Pulmonary: Effort normal, non-labored. Good aeration and symmetric breath sounds. No wheezes or Rhonchi. Abdominal: Abdomen soft, non-distended. There is no tenderness. No rebound or guarding. MSK: No deformities, joint effusions. Neurological: Oriented to person, place, and time. Left-sided frank-neglect with both gaze and left upper extremity. Left lower extremity not involved. NIHSS (Provider) Flowsheet Row First Filed Value Provider NIH Stroke Scale NIH Interval (Provider) admission filed on 04/12/2023 1436 NIH Level of Conciousness (Provider) 0 filed on 04/12/2023 1436 NIH LOC Questions (Provider) 0 filed on 04/12/2023 1436 NIH LOC Commands (Provider) 0 filed on 04/12/2023 1436 NIH Best Gaze (Provider) 2 filed on 04/12/2023 1436 NIH Visual (Provider) 2 filed on 04/12/2023 1436 NIH Facial Palsy (Provider) 0 filed on 04/12/2023 1436 NIH Left Arm Motor (Provider) 0 filed on 04/12/2023 1436 NIH Right Arm Motor (Provider) 0 filed on 04/12/2023 1436 NIH Left Leg Motor (Provider) 0 filed on 04/12/2023 1436 NIH Right Leg Motor (Provider) 0 filed on 04/12/2023 1436 NIH Limb Ataxia (Provider) 0 filed on 04/12/2023 1436 NIH Sensory (Provider) 1 filed on 04/12/2023 1436 NIH Best Language (Provider) 0 filed on 04/12/2023 1436 NIH Dysarthria (Provider) 1 filed on 04/12/2023 1436 NIH Extinction and Inattention (Provider) 2 filed on 04/12/2023 1436 NIH Total Score (Provider) 8 filed on 04/12/2023 1436 Is NIH=0 Within 180 min of Last Known Well Time? -- Skin: Skin is warm and dry. No rashes or wounds noted. Psychiatric: Appropriate mood and affect. EKG: Interpreted by me - normal sinus rhythm with a rate of 92. No acute ST elevations or depressions concerning for ischemic disease. Labs: Results for orders placed or performed during the hospital encounter of 04/12/23 [facility] 7 - ED Result Value Ref Range Sodium 128 (L) 135 - 145 mmol/L Potassium 5.0 3.5 - 5.0 mmol/L Chloride 100 98 - 108 mmol/L CO2 22 21 - 31 mmol/L Glucose 111 (H) 70 - 99 mg/dL BUN 30 (H) 7 - 25 mg/dL Creatinine 1.95 (H) 0.50 - 1.20 mg/dL Bun/Crea Ratio 15 Osmolality (Calculated) 279 278 - 305 mOsm/kg Anion Gap 11 7 - 17 mmol/L eGFR, CKD-EPI, Female 25 (L) >=60 mL/min/1.73m2 HEPATIC FUNCTION PANEL Result Value Ref Range Albumin 3.7 3.5 - 5.0 g/dL Bilirubin Direct 0.2 <0.3 mg/dL Bilirubin Total 0.7 <1.5 mg/dL ALP 55 32 - 126 U/L ALT 13 9 - 48 U/L AST 17 10 - 39 U/L Total Protein 6.0 (L) 6.4 - 8.3 g/dL PTINR-STROKE Result Value Ref Range PT 15.3 (H) 11.9 - 14.2 sec INR 1.2 (H) 0.9 - 1.1 PTT Result Value Ref Range PTT 28.5 24.0 - 34.3 sec HIGH SENSITIVITY TROPONIN I - SINGLE ORDER Result Value Ref Range hs-Troponin I 79 (H) <34 ng/L CBC AND ELECTRONIC DIFF Result Value Ref Range WBC Count 6.56 3.99 - 11.19 K/uL RBC Count 3.50 (L) 3.91 - 5.04 M/uL Hemoglobin 10.2 (L) 11.4 - 15.2 g/dL Hematocrit 30.8 (L) 34.9 - 44.3 % Mean Cell Volume 88.0 79.6 - 97.7 fL Mean Cell Hgb 29.1 25.9 - 33.9 pg Mean Cell Hgb Conc 33.1 31.4 - 35.9 g/dL RBC Distribution 13.2 10.8 - 14.9 % Platelet Count 199 150 - 393 K/uL Mean Platelet Volume 9.9 8.5 - 12.2 fL DIFF STATUS Electronic Differential Segs + Bands Auto 77.4 % Immature Grans % 0.2 % Lymphocyte % Auto 14.3 % Monocyte % Auto 7.6 % Eosinophil % Auto 0.3 % Basophil % Auto 0.2 % Nucleated RBC 0.0 <=0.2 /100 WBC Segs + Bands,Absolute Auto 5.08 1.64 - 7.28 K/uL Immature Grans Absolute <0.04 <=0.08 K/uL Abs Lymph Auto 0.94 (L) 1.16 - 3.51 K/uL Abs Mayes Auto 0.50 0.22 - 0.87 K/uL Abs Eos Auto <0.04 0.00 - 0.42 K/uL Abs Baso Auto <0.04 0.00 - 0.15 K/uL URINALYSIS REFLEX TO CULTURE PERFORMABLE Result Value Ref Range Color Yellow Yellow Appearance Urine Clear Clear Glucose Urine Negative Negative Ketones Urine Negative Negative Specific [place] Urine 1.015 1.001 - 1.035 Blood Urine Large (A) Negative pH Urine 7.0 5.0 - 7.0 Protein Urine 100 mg/dL (A) Negative Urobilinogen Urine 0.2 E.U./dL 0.2 E.U/dL, 1.0 E.U/dL Nitrites Urine Negative Negative Leukocyte Esterase Negative Negative RBC Urine 11-25 (A) 0 - 2 /HPF WBC Urine 0 - 5 0 - 5 /HPF Squamous/Epithelial Cells 0-2/hpf 0-2/hpf, 3-5/hpf = 1+ Bacteria TRACE (A) ABSENT Radiology: CT CEREBRAL PERFUSION ANALYSIS Final Result IMPRESSION: Questionable perfusion deficit in the posterior aspect of the right cerebral hemisphere noted in the time of drain sequences is favored to represent artifact given no associated perfusion abnormality in any other perfusion maps. Clinical correlation is ultimately needed. ANGIO BRAIN/NECK Final Result IMPRESSION: 1. 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 Otherwise no large vessel occlusion or significant stenosis of the carotid or vertebral system. 2. 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 3. Thyroid lesions. These are of indeterminate etiology and would be better assessed by ultrasound if clinically indicated. I personally viewed and interpreted these images and I have reviewed and approved this report. STROKE HEAD-STROKE ALERT ONLY Final Result IMPRESSION: No acute intracranial hemorrhage, or CT signs of acute large territory infarction. No significant intracranial mass effect. Findings were discussed with CHANTELL Nice at 2:00 PM on April 12, 2023. I personally viewed and interpreted these images and I have reviewed and approved this report. CARDIOGRAM (Results Pending) MRI BRAIN WITHOUT CONTRAST (Results Pending) ED COURSE & MEDICAL DECISION MAKING Assessment: Shakila Perez is a 83 y.o. female who presents with: Level A stroke alert Ddx is broad and includes ischemic stroke, hemorrhagic stroke, TIA, complex migraine, carotid dissection, other neurologic etiology, acs. Will discuss with neurology, obtain stroke labs including cbc, chemistry, troponin, ekg, UA. Will get CT head, CTA and Ctperfusion. Patient's care was discussed with the neurovascular team. We will in the CT scanner the patient became hypertensive with a systolic of 219. Orders were placed for p.r.n. blood pressure control to keep her systolics less than 220 due to concern for ischemic stroke. Allowing some permissive hypertension. Patient was outside the window for lytics and was not offered thrombectomy. Patient to be admitted to the neurovascular PCU Service. Philippe Cedillo MD Resident 04/12/23 [id number] [facility] Work Phone: 04-12-2023 Emergency department Note EMERGENCY DEPARTMENT ENCOUNTER CHIEF COMPLAINT Stroke alert HPI Shakila Perez is a 83 y.o. female who has a past medical history of Arthritis and Essential hypertension, benign. This patient presents as a stroke alert. Patient presenting as a transfer from outside hospital for stroke alert. Patient initially presented to the hospital yesterday with a last known well of 10:00 a.m. on 04/11 2023. At that time she is presenting for right-sided weakness, difficulty using her right hand, dysarthria. She would CT head and CTA and MRI that were all negative for any acute infarct. She would a documented NIH of 0 at 3:20 p.m. yesterday. Patient is working with PT this morning and there was concern that she had left-sided frank-neglect. After neuro speak with the nursing staff at the outside hospital there is concern she may have had neglect overnight. New last known well of 1520 yesterday. Patient is not on blood thinners. Patient arrived [facility] alert and oriented and hemodynamically stable. REVIEW OF SYSTEMS Review of systems including constitutional, skin, HEENT, eyes, CV, respiratory, GI, , MSK, endocrine, neurologic, psychiatric, heme reviewed and negative except as noted above. PAST MEDICAL HISTORY Past Medical History: Diagnosis Date Arthritis Essential hypertension, benign SURGICAL HISTORY Past Surgical History: Procedure Laterality Date TONSILLECTOMY CURRENT MEDICATIONS Current Outpatient Medications Medication Sig gliMEPIride 1 MG Tab TAKE 1 TABLET BY MOUTH DAILY losartan 100 MG Tab TAKE 1 TABLET BY MOUTH DAILY omeprazole [address] capsule TAKE ONE CAPSULE BY MOUTH EVERY DAY ALLERGIES No Known Allergies FAMILY HISTORY Family History Problem Relation Age of Onset Diabetes Mother Hypertension Mother Diabetes Father Hypertension Father SOCIAL HISTORY Social History Socioeconomic History Marital status: Spouse name: Not on file Number of children: Not on file Years of education: Not on file Highest education level: Not on file Occupational History Not on file Tobacco Use Smoking status: Never Smokeless tobacco: Never Substance and Sexual Activity Alcohol use: Not on file Drug use: Not on file Sexual activity: Not on file Other Topics Concern Not on file Social History Narrative Not on file Social Determinants of Health Financial Resource Strain: Not on file Food Insecurity: Not on file Transportation Needs: Not on file Physical Activity: Not on file Stress: Not on file Social Connections: Not on file Intimate Partner Violence: Not on file Housing Stability: Not on file PHYSICAL EXAM Vital Signs:BP (!) 205/101 Pulse 83 Temp 98.5 F (36.9 C) (Oral) Resp (!) 29 Ht 1.6 m (5' 3 ) Wt 90.9 kg (200 lb 8 oz) SpO2 98% BMI 35.52 kg/m Smoking Status Never Constitutional: Ill appearing, in no acute distress. HENT: Normocephalic and atraumatic. Oropharynx is clear and moist. Neck: Normal range of motion. Neck supple. Cardiovascular: Normal rate and regular rhythm. No murmurs, rubs, gallops Pulmonary: Effort normal, non-labored. Good aeration and symmetric breath sounds. No wheezes or Rhonchi. Abdominal: Abdomen soft, non-distended. There is no tenderness. No rebound or guarding. MSK: No deformities, joint effusions. Neurological: Oriented to person, place, and time. Left-sided frank-neglect with both gaze and left upper extremity. Left lower extremity not involved. NIHSS (Provider) Flowsheet Row First Filed Value Provider NIH Stroke Scale NIH Interval (Provider) admission filed on 04/12/2023 1436 NIH Level of Conciousness (Provider) 0 filed on 04/12/2023 1436 NIH LOC Questions (Provider) 0 filed on 04/12/2023 1436 NIH LOC Commands (Provider) 0 filed on 04/12/2023 1436 NIH Best Gaze (Provider) 2 filed on 04/12/2023 1436 NIH Visual (Provider) 2 filed on 04/12/2023 1436 NIH Facial Palsy (Provider) 0 filed on 04/12/2023 1436 NIH Left Arm Motor (Provider) 0 filed on 04/12/2023 1436 NIH Right Arm Motor (Provider) 0 filed on 04/12/2023 1436 NIH Left Leg Motor (Provider) 0 filed on 04/12/2023 1436 NIH Right Leg Motor (Provider) 0 filed on 04/12/2023 1436 NIH Limb Ataxia (Provider) 0 filed on 04/12/2023 1436 NIH Sensory (Provider) 1 filed on 04/12/2023 1436 NIH Best Language (Provider) 0 filed on 04/12/2023 1436 NIH Dysarthria (Provider) 1 filed on 04/12/2023 1436 NIH Extinction and Inattention (Provider) 2 filed on 04/12/2023 1436 NIH Total Score (Provider) 8 filed on 04/12/2023 1436 Is NIH=0 Within 180 min of Last Known Well Time? -- Skin: Skin is warm and dry. No rashes or wounds noted. Psychiatric: Appropriate mood and affect. EKG: Interpreted by me - normal sinus rhythm with a rate of 92. No acute ST elevations or depressions concerning for ischemic disease. Labs: Results for orders placed or performed during the hospital encounter of 04/12/23 [facility] 7 - ED Result Value Ref Range Sodium 128 (L) 135 - 145 mmol/L Potassium 5.0 3.5 - 5.0 mmol/L Chloride 100 98 - 108 mmol/L CO2 22 21 - 31 mmol/L Glucose 111 (H) 70 - 99 mg/dL BUN 30 (H) 7 - 25 mg/dL Creatinine 1.95 (H) 0.50 - 1.20 mg/dL Bun/Crea Ratio 15 Osmolality (Calculated) 279 278 - 305 mOsm/kg Anion Gap 11 7 - 17 mmol/L eGFR, CKD-EPI, Female 25 (L) >=60 mL/min/1.73m2 HEPATIC FUNCTION PANEL Result Value Ref Range Albumin 3.7 3.5 - 5.0 g/dL Bilirubin Direct 0.2 <0.3 mg/dL Bilirubin Total 0.7 <1.5 mg/dL ALP 55 32 - 126 U/L ALT 13 9 - 48 U/L AST 17 10 - 39 U/L Total Protein 6.0 (L) 6.4 - 8.3 g/dL PTINR-STROKE Result Value Ref Range PT 15.3 (H) 11.9 - 14.2 sec INR 1.2 (H) 0.9 - 1.1 PTT Result Value Ref Range PTT 28.5 24.0 - 34.3 sec HIGH SENSITIVITY TROPONIN I - SINGLE ORDER Result Value Ref Range hs-Troponin I 79 (H) <34 ng/L CBC AND ELECTRONIC DIFF Result Value Ref Range WBC Count 6.56 3.99 - 11.19 K/uL RBC Count 3.50 (L) 3.91 - 5.04 M/uL Hemoglobin 10.2 (L) 11.4 - 15.2 g/dL Hematocrit 30.8 (L) 34.9 - 44.3 % Mean Cell Volume 88.0 79.6 - 97.7 fL Mean Cell Hgb 29.1 25.9 - 33.9 pg Mean Cell Hgb Conc 33.1 31.4 - 35.9 g/dL RBC Distribution 13.2 10.8 - 14.9 % Platelet Count 199 150 - 393 K/uL Mean Platelet Volume 9.9 8.5 - 12.2 fL DIFF STATUS Electronic Differential Segs + Bands Auto 77.4 % Immature Grans % 0.2 % Lymphocyte % Auto 14.3 % Monocyte % Auto 7.6 % Eosinophil % Auto 0.3 % Basophil % Auto 0.2 % Nucleated RBC 0.0 <=0.2 /100 WBC Segs + Bands,Absolute Auto 5.08 1.64 - 7.28 K/uL Immature Grans Absolute <0.04 <=0.08 K/uL Abs Lymph Auto 0.94 (L) 1.16 - 3.51 K/uL Abs Mayes Auto 0.50 0.22 - 0.87 K/uL Abs Eos Auto <0.04 0.00 - 0.42 K/uL Abs Baso Auto <0.04 0.00 - 0.15 K/uL URINALYSIS REFLEX TO CULTURE PERFORMABLE Result Value Ref Range Color Yellow Yellow Appearance Urine Clear Clear Glucose Urine Negative Negative Ketones Urine Negative Negative Specific [place] Urine 1.015 1.001 - 1.035 Blood Urine Large (A) Negative pH Urine 7.0 5.0 - 7.0 Protein Urine 100 mg/dL (A) Negative Urobilinogen Urine 0.2 E.U./dL 0.2 E.U/dL, 1.0 E.U/dL Nitrites Urine Negative Negative Leukocyte Esterase Negative Negative RBC Urine 11-25 (A) 0 - 2 /HPF WBC Urine 0 - 5 0 - 5 /HPF Squamous/Epithelial Cells 0-2/hpf 0-2/hpf, 3-5/hpf = 1+ Bacteria TRACE (A) ABSENT Radiology: CT CEREBRAL PERFUSION ANALYSIS Final Result IMPRESSION: Questionable perfusion deficit in the posterior aspect of the right cerebral hemisphere noted in the time of drain sequences is favored to represent artifact given no associated perfusion abnormality in any other perfusion maps. Clinical correlation is ultimately needed. ANGIO BRAIN/NECK Final Result IMPRESSION: 1. 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 Otherwise no large vessel occlusion or significant stenosis of the carotid or vertebral system. 2. 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 3. Thyroid lesions. These are of indeterminate etiology and would be better assessed by ultrasound if clinically indicated. I personally viewed and interpreted these images and I have reviewed and approved this report. STROKE HEAD-STROKE ALERT ONLY Final Result IMPRESSION: No acute intracranial hemorrhage, or CT signs of acute large territory infarction. No significant intracranial mass effect. Findings were discussed with CHANTELL Nice at 2:00 PM on April 12, 2023. I personally viewed and interpreted these images and I have reviewed and approved this report. CARDIOGRAM (Results Pending) MRI BRAIN WITHOUT CONTRAST (Results Pending) ED COURSE & MEDICAL DECISION MAKING Assessment: Shakila Perez is a 83 y.o. female who presents with: Level A stroke alert Ddx is broad and includes ischemic stroke, hemorrhagic stroke, TIA, complex migraine, carotid dissection, other neurologic etiology, acs. Will discuss with neurology, obtain stroke labs including cbc, chemistry, troponin, ekg, UA. Will get CT head, CTA and Ctperfusion. Patient's care was discussed with the neurovascular team. We will in the CT scanner the patient became hypertensive with a systolic of 219. Orders were placed for p.r.n. blood pressure control to keep her systolics less than 220 due to concern for ischemic stroke. Allowing some permissive hypertension. Patient was outside the window for lytics and was not offered thrombectomy. Patient to be admitted to the neurovascular PCU Service. Philippe Cedillo MD Resident 04/12/23 1540 Department of Pharmacy Emergency Department Stroke Alert Response Note Patient Name: Shakila Perez Room/Bed: E033/E033 A Pharmacist responded to the stroke alert. Last known well was established to be 04/11 11:00. The Thrombolytic Therapy for Acute Ischemic Stroke Checklist was completed by Jeffrey HAYDEN who deemed the patient ineligible for thrombolytic therapy. The IHIS order set ED: Confirmed Stroke/ICH - Secondary was placed by Dr. Philippe Cedillo for ongoing care. Verified orders for anti-hypertensive therapy with correct blood pressure goals (SBP <220 mmHg / DBP <120 mmHg) have been placed. Please feel free to contact me with any further questions. Name: Tae Page RPH Phone: [phone] Date/Time: 04/12/2023 1:41 PM Pt arrives to ED as stroke alert. Pt was inpatient at [facility] had right sided deficits yesterday. Today pt began having left sided neglect and confusion. Per EMS, pt was trying to talk to people who were not there. Pt able to move extremities but does have left sided sensory deficits and left sided neglect. ED resident and neuro HEADER DOCK bedside evaluating pt. Pt had Negative MRI at [facility] yesterday. LKW currently is 1000 this morning. Neuro HEADER DOCK calling [facility] to clarify LKW Bed: E033 Expected date: 04/12/23 Expected time: 12:00 AM Means of arrival: Private Ambulance Comments: documented in this encounter [facility] 04-12-2023 Emergency department Note Department of Pharmacy Emergency Department Stroke Alert Response Note Patient Name: Shakila Perez Room/Bed: E033/E033 A Pharmacist responded to the stroke alert. Last known well was established to be 04/11 11:00. The Thrombolytic Therapy for Acute Ischemic Stroke Checklist was completed by Jeffrey HAYDEN who deemed the patient ineligible for thrombolytic therapy. The IHIS order set ED: Confirmed Stroke/ICH - Secondary was placed by Dr. Philippe Cedillo for ongoing care. Verified orders for anti-hypertensive therapy with correct blood pressure goals (SBP <220 mmHg / DBP <120 mmHg) have been placed. Please feel free to contact me with any further questions. Name: Tae Page RPH Phone: [phone] Date/Time: 04/12/2023 1:41 PM [facility] 04-12-2023 Emergency department Note Pt arrives to ED as stroke alert. Pt was inpatient at [facility] had right sided deficits yesterday. Today pt began having left sided neglect and confusion. Per EMS, pt was trying to talk to people who were not there. Pt able to move extremities but does have left sided sensory deficits and left sided neglect. ED resident and neuro HEADER DOCK bedside evaluating pt. Pt had Negative MRI at [facility] yesterday. LKW currently is 1000 this morning. Neuro HEADER DOCK calling [facility] to clarify LKW [facility] 04-12-2023 Emergency department Note Bed: E033 Expected date: 04/12/23 Expected time: 12:00 AM Means of arrival: Private Ambulance Comments: [facility] 04-12-2023 History and physical note Neurovascular Evaluation Note Evaluation Date: 04/12/2023 Unit: E033/E033 Consultation was requested by Dr. Patricio Ling MD Patient status: Emergency Length of stay: 0 days Reason for Consult/Chief Complaint Dysarthria, transient hand weakness History of Present Illness Shakila Perez is a 83 y.o. female with PMH significant for HTN, possible prior stroke, and CHF who presented to OSH on 04/11 for R hand clumsiness and dysarthria. The hand clumsiness resolved with 1 hour, but the dysarthria has been persistent. MRI, CTH, and CTA on 04/11 at [facility] was all negative for acute stroke or LVO. Overnight, the patient developed left side neglect. Discussed with nursing staff at OSH and it is unclear what time this began. Pt was transferred for further workup given worsening exam. On arrival, NIH 8, CTH without large territory stroke, CTA no LVO. CTP with subtle prolonged Tmax in the R MCA territory. No acute interventions due to no LVO and outside of treatment window. A stroke alert was called for STAT consultation. Arrival Time of Stroke Team : 1300 Patient Location - Onset of Symptoms: Other acute healthcare facility Last Known Well: Date: 04/11/23 Last Known Well: Time: 1000 Source of information: Outside facility medical record Review of Systems A complete review of systems was negative except for deferred. Neurovascular-specific History / Information Home antiplatelet/anticoagulation therapy: Antiplatelet therapy: Aspirin 81mg. Patient Current Risk Factors: Stroke risk factors include hypertension. Prior stroke history: no. Family Hx: unknown Stroke Diagnostic/Treatment Eligibility Information Time to thrombolytic delayed due to:Time to thrombolytic delayed due to: N/A Thrombectomy was considered and not indicated due to: Thrombectomy Contraindications: no LVO Stroke Clinical Assessment Information: NIHSS (Provider) Flowsheet Row First Filed Value Provider NIH Stroke Scale NIH Interval (Provider) admission filed on 04/12/2023 1436 NIH Level of Conciousness (Provider) 0 filed on 04/12/2023 1436 NIH LOC Questions (Provider) 0 filed on 04/12/2023 1436 NIH LOC Commands (Provider) 0 filed on 04/12/2023 1436 NIH Best Gaze (Provider) 2 filed on 04/12/2023 1436 NIH Visual (Provider) 2 filed on 04/12/2023 1436 NIH Facial Palsy (Provider) 0 filed on 04/12/2023 1436 NIH Left Arm Motor (Provider) 0 filed on 04/12/2023 1436 NIH Right Arm Motor (Provider) 0 filed on 04/12/2023 1436 NIH Left Leg Motor (Provider) 0 filed on 04/12/2023 1436 NIH Right Leg Motor (Provider) 0 filed on 04/12/2023 1436 NIH Limb Ataxia (Provider) 0 filed on 04/12/2023 1436 NIH Sensory (Provider) 1 filed on 04/12/2023 1436 NIH Best Language (Provider) 0 filed on 04/12/2023 1436 NIH Dysarthria (Provider) 1 filed on 04/12/2023 1436 NIH Extinction and Inattention (Provider) 2 filed on 04/12/2023 1436 NIH Total Score (Provider) 8 filed on 04/12/2023 1436 Is NIH=0 Within 180 min of Last Known Well Time? -- Stroke Scales Flowsheet Row Most Recent Value NIH Total Score (Provider) 8 filed on 04/12/2023 1436 Past Medical History Medical History: Past Medical History: Diagnosis Date Arthritis Essential hypertension, benign SURGICAL HISTORY: Past Surgical History: Procedure Laterality Date TONSILLECTOMY SOCIAL HISTORY: Social History Tobacco Use Smoking status: Never Smokeless tobacco: Never Medications PRIOR TO ARRIVAL MEDS: Prior to Admission medications Medication Sig Start Date End Date Taking? Authorizing Provider gliMEPIride 1 MG Tab TAKE 1 TABLET BY MOUTH DAILY 11/15/17 Historical Provider losartan 100 MG Tab TAKE 1 TABLET BY MOUTH DAILY 11/15/17 Historical Provider omeprazole [address] capsule TAKE ONE CAPSULE BY MOUTH EVERY DAY 11/14/17 Historical Provider Current Meds: Current Facility Administered Meds: Current Facility-Administered Medications Medication Dose Route Frequency Provider Last Rate Last Admin hydrALAZINE (APRESOLINE) injection 10 mg 10 mg Intravenous Q10 MIN PRN Philippe Cedillo MD Labetalol (NORMODYNE) injection 10 mg 10 mg Intravenous Q10 MIN PRN Philippe Cedillo MD 10 mg at 04/12/23 1447 Sodium chloride 0.9% IV solution Intravenous Continuous Philippe Cedillo MD 75 mL/hr at 04/12/23 1440 New Bag at 04/12/23 1440 Current Outpatient Medications Medication Sig Dispense Refill gliMEPIride 1 MG Tab TAKE 1 TABLET BY MOUTH DAILY 1 losartan 100 MG Tab TAKE 1 TABLET BY MOUTH DAILY 1 omeprazole [address] capsule TAKE ONE CAPSULE BY MOUTH EVERY DAY 1 Scheduled Meds: Continuous Infusions: PRN Meds: Vitals Objective Findings: Vital Signs (24hrs): Pulse (Heart Rate): [86-103] 91 Resp Rate: [15-30] 30 BP: (195-241)/(93-113) 234/102 O2 Sat (%): [85 %-95 %] 95 % Weight: [90.9 kg (200 lb 8 oz)] 90.9 kg (200 lb 8 oz) Body mass index is 35.52 kg/m . Lines/Drains/Airways/Wounds: Patient Lines/Drains/Airways Status Active Lines, Drains, Airways, & Wound Overview Name Placement date Placement time Site Days Peripheral IV Line - Single Lumen 04/12/23 1403 median cubital vein (antecubital fossa), right 18 gauge;1 1/4 in length 04/12/23 1403 -- less than 1 Physical Exam General: Laying comfortably in bed; in no acute distress. CV: RRR. Pulmonary: No increased work of breathing, Equal chest rise bilaterally, no audible wheezing. Abdomen: soft, non-tender Ext: No cyanosis, edema, or deformity Skin: No rash Neurological Examination Psych and Mental status: alert; oriented to person, place, year, and month; poor attention Speech/language: fluent; comprehension intact; object naming intact; repetition intact Cranial nerves: CN II complete LHH, no blink to threat on left CN III, IV, PERRL. R gaze preference CN V facial sensation intact to light touch bilaterally in V1, V2, V3 CN VII face, smile, eyebrow raise/closure symmetric CN VIII hearing grossly intact to voice CN IX & X soft palate elevates symmetrically in the midline, no dysarthria CN XI shoulder shrug full strength bilaterally CNXII tongue protrudes midline Motor: Normal bulk and tone. No pronator drift. Reflexes: Coordination: Ovmcyx-og-vgdf [id number]-yz-[id number] intact . Rapid alternating movements are normal. Sensation: LUE and LLE sensation absent to soft touch. Can identify pain only. Profound Left frank-neglect, does not recognize own left hand Gait: deferred Laboratory Results Diagnostics/Procedures: Labs-CBC WBC/Hgb/Hct/Plts: 6.56/10.2/30.8/199 (04/12 1356) Labs-Chem 7([facility]) Bun/Creat/Cl/CO2/Glucose: 30/1.95/100/22/111 (04/12 1356) Na/K+/Phos/Mg/Ca: 128/5.0/--/--/-- (04/12 1356) Labs-Coags Ptt/Pt/Inr: 28.5/15.3/1.2 (04/12 1356) Additional Labs No results found for: CHOLESTEROL , TRIG , HDL , LDLCALC , LDLDIRECT Labs-Hemoglobin A1C No results found for: HGBA1C Imaging Imaging was analyzed by Claudette, No LVO CT Stroke Head:no hemorrhage or large territory stroke CTA Brain/Neck: no LVO CT Perfusion: small amount of prolonged TMAX in the R MCA stroke Assessment/Impression Shakila Perez present with left hemineglect likely due to R MCA stroke. Plan -Please admit to neurovascular service PCU, attending Dr. Ling. An ischemic stroke without IV thrombolysis order set has been signed and held. -Swallow evaluation prior to any oral intake -Aspirin 81 mg orally or 300 mg rectally -Blood pressure goals with SBP less than 220 -Obtain MRI brain, stroke protocol -ECHO to evaluate cardiac function -Lipid panel, LFTs and HgbA1c to evaluate secondary risk factors for ischemic stroke -Baseline EKG, if not done in ED. Continuous telemetry -PT, OT, Speech and vp digital marketing social media and crm consults This plan has been discussed with stroke fellow Dr. Nazario and has been communicated to ED team. Nissa Ramirez APRN-NALINI 04/12/2023 2:57 PM Code Status: No Order DVT prophylaxis: Diet: DIET NPO WITHOUT meds I personally attended to this critically ill patient for 65 minutes including acute stroke evaluation, determining the appropriateness of administering IV tPA, treatment of mechanical thrombectomy, and discussing with the plan with the family and medical team. Associated attestation - Patricio Ling MD - 04/15/2023 6:08 PM EDT I have seen and independently examined the patient on 04/12/2023. I reviewed the laboratory and imaging data. The management plan was constructed in discussion with me. I agree with the note as written by the nurse practitioner: 83 y/o woman with h/o HTN, possible prior stroke, and CHF p/w R hand clumsiness and dysarthria. The hand clumsiness resolved with 1 hour, but the dysarthria has been persistent. MRI, CTH, and CTA on 04/11 at [facility] was all negative for acute stroke or LVO. Overnight, the patient developed left side neglect. Discussed with nursing staff at OSH and it is unclear what time this began. Pt was transferred for further workup given worsening exam. On arrival, NIH 8, CTH without large territory stroke, CTA no LVO. CTP concerning for hyperperfusion in left temporal lobe. No acute interventions due to no LVO and outside of treatment window. ASA and statin. Follow up MRI Vipin and TTE. OT/PT/WRECKER DRIVER [facility] 04-12-2023 History and physical note Neurovascular Evaluation Note Evaluation Date: 04/12/2023 Unit: E033/E033 Consultation was requested by Dr. Patricio Ling MD Patient status: Emergency Length of stay: 0 days Reason for Consult/Chief Complaint Dysarthria, transient hand weakness History of Present Illness Shakila Perez is a 83 y.o. female with PMH significant for HTN, possible prior stroke, and CHF who presented to OSH on 04/11 for R hand clumsiness and dysarthria. The hand clumsiness resolved with 1 hour, but the dysarthria has been persistent. MRI, CTH, and CTA on 04/11 at [facility] was all negative for acute stroke or LVO. Overnight, the patient developed left side neglect. Discussed with nursing staff at OSH and it is unclear what time this began. Pt was transferred for further workup given worsening exam. On arrival, NIH 8, CTH without large territory stroke, CTA no LVO. CTP with subtle prolonged Tmax in the R MCA territory. No acute interventions due to no LVO and outside of treatment window. A stroke alert was called for STAT consultation. Arrival Time of Stroke Team : 1300 Patient Location - Onset of Symptoms: Other acute healthcare facility Last Known Well: Date: 04/11/23 Last Known Well: Time: 1000 Source of information: Outside facility medical record Review of Systems A complete review of systems was negative except for deferred. Neurovascular-specific History / Information Home antiplatelet/anticoagulation therapy: Antiplatelet therapy: Aspirin 81mg. Patient Current Risk Factors: Stroke risk factors include hypertension. Prior stroke history: no. Family Hx: unknown Stroke Diagnostic/Treatment Eligibility Information Time to thrombolytic delayed due to:Time to thrombolytic delayed due to: N/A Thrombectomy was considered and not indicated due to: Thrombectomy Contraindications: no LVO Stroke Clinical Assessment Information: NIHSS (Provider) Flowsheet Row First Filed Value Provider NIH Stroke Scale NIH Interval (Provider) admission filed on 04/12/2023 1436 NIH Level of Conciousness (Provider) 0 filed on 04/12/2023 1436 NIH LOC Questions (Provider) 0 filed on 04/12/2023 1436 NIH LOC Commands (Provider) 0 filed on 04/12/2023 1436 NIH Best Gaze (Provider) 2 filed on 04/12/2023 1436 NIH Visual (Provider) 2 filed on 04/12/2023 1436 NIH Facial Palsy (Provider) 0 filed on 04/12/2023 1436 NIH Left Arm Motor (Provider) 0 filed on 04/12/2023 1436 NIH Right Arm Motor (Provider) 0 filed on 04/12/2023 1436 NIH Left Leg Motor (Provider) 0 filed on 04/12/2023 1436 NIH Right Leg Motor (Provider) 0 filed on 04/12/2023 1436 NIH Limb Ataxia (Provider) 0 filed on 04/12/2023 1436 NIH Sensory (Provider) 1 filed on 04/12/2023 1436 NIH Best Language (Provider) 0 filed on 04/12/2023 1436 NIH Dysarthria (Provider) 1 filed on 04/12/2023 1436 NIH Extinction and Inattention (Provider) 2 filed on 04/12/2023 1436 NIH Total Score (Provider) 8 filed on 04/12/2023 1436 Is NIH=0 Within 180 min of Last Known Well Time? -- Stroke Scales Flowsheet Row Most Recent Value NIH Total Score (Provider) 8 filed on 04/12/2023 1436 Past Medical History Medical History: Past Medical History: Diagnosis Date Arthritis Essential hypertension, benign SURGICAL HISTORY: Past Surgical History: Procedure Laterality Date TONSILLECTOMY SOCIAL HISTORY: Social History Tobacco Use Smoking status: Never Smokeless tobacco: Never Medications PRIOR TO ARRIVAL MEDS: Prior to Admission medications Medication Sig Start Date End Date Taking? Authorizing Provider gliMEPIride 1 MG Tab TAKE 1 TABLET BY MOUTH DAILY 11/15/17 Historical Provider losartan 100 MG Tab TAKE 1 TABLET BY MOUTH DAILY 11/15/17 Historical Provider omeprazole [address] capsule TAKE ONE CAPSULE BY MOUTH EVERY DAY 11/14/17 Historical Provider Current Meds: Current Facility Administered Meds: Current Facility-Administered Medications Medication Dose Route Frequency Provider Last Rate Last Admin hydrALAZINE (APRESOLINE) injection 10 mg 10 mg Intravenous Q10 MIN PRN Philippe Cedillo MD Labetalol (NORMODYNE) injection 10 mg 10 mg Intravenous Q10 MIN PRN Philippe Cedillo MD 10 mg at 04/12/23 1447 Sodium chloride 0.9% IV solution Intravenous Continuous Philippe Cedillo MD 75 mL/hr at 04/12/23 1440 New Bag at 04/12/23 1440 Current Outpatient Medications Medication Sig Dispense Refill gliMEPIride 1 MG Tab TAKE 1 TABLET BY MOUTH DAILY 1 losartan 100 MG Tab TAKE 1 TABLET BY MOUTH DAILY 1 omeprazole [address] capsule TAKE ONE CAPSULE BY MOUTH EVERY DAY 1 Scheduled Meds: Continuous Infusions: PRN Meds: Vitals Objective Findings: Vital Signs (24hrs): Pulse (Heart Rate): [86-103] 91 Resp Rate: [15-30] 30 BP: (195-241)/(93-113) 234/102 O2 Sat (%): [85 %-95 %] 95 % Weight: [90.9 kg (200 lb 8 oz)] 90.9 kg (200 lb 8 oz) Body mass index is 35.52 kg/m . Lines/Drains/Airways/Wounds: Patient Lines/Drains/Airways Status Active Lines, Drains, Airways, & Wound Overview Name Placement date Placement time Site Days Peripheral IV Line - Single Lumen 04/12/23 1403 median cubital vein (antecubital fossa), right 18 gauge;1 1 in length 04/12/23 1403 -- less than 1 Physical Exam General: Laying comfortably in bed; in no acute distress. CV: RRR. Pulmonary: No increased work of breathing, Equal chest rise bilaterally, no audible wheezing. Abdomen: soft, non-tender Ext: No cyanosis, edema, or deformity Skin: No rash Neurological Examination Psych and Mental status: alert; oriented to person, place, year, and month; poor attention Speech/language: fluent; comprehension intact; object naming intact; repetition intact Cranial nerves: CN II complete LHH, no blink to threat on left CN III, IV, PERRL. R gaze preference CN V facial sensation intact to light touch bilaterally in V1, V2, V3 CN VII face, smile, eyebrow raise/closure symmetric CN VIII hearing grossly intact to voice CN IX & X soft palate elevates symmetrically in the midline, no dysarthria CN XI shoulder shrug full strength bilaterally CNXII tongue protrudes midline Motor: Normal bulk and tone. No pronator drift. Reflexes: Coordination: Velfad-za-cxhn jznxzzTljm-ke-iyyl intact . Rapid alternating movements are normal. Sensation: LUE and LLE sensation absent to soft touch. Can identify pain only. Profound Left frank-neglect, does not recognize own left hand Gait: deferred Laboratory Results Diagnostics/Procedures: Labs-CBC WBC/Hgb/Hct/Plts: 6.56/10.2/30.8/199 (04/12 1356) Labs-Chem 7([facility]) Bun/Creat/Cl/CO2/Glucose: 30/1.95/100/22/111 (04/12 1356) Na/K+/Phos/Mg/Ca: 128/5.0/--/--/-- (04/12 1356) Labs-Coags Ptt/Pt/Inr: 28.5/15.3/1.2 (04/12 1356) Additional Labs No results found for: CHOLESTEROL , TRIG , HDL , LDLCALC , LDLDIRECT Labs-Hemoglobin A1C No results found for: HGBA1C Imaging Imaging was analyzed by Ingris Wilkins LVO CT Stroke Head:no hemorrhage or large territory stroke CTA Brain/Neck: no LVO CT Perfusion: small amount of prolonged TMAX in the R MCA stroke Assessment/Impression Shakila Perez present with left hemineglect likely due to R MCA stroke. Plan -Please admit to neurovascular service PCU, attending Dr. Ling. An ischemic stroke without IV thrombolysis order set has been signed and held. -Swallow evaluation prior to any oral intake -Aspirin 81 mg orally or 300 mg rectally -Blood pressure goals with SBP less than 220 -Obtain MRI brain, stroke protocol -ECHO to evaluate cardiac function -Lipid panel, LFTs and HgbA1c to evaluate secondary risk factors for ischemic stroke -Baseline EKG, if not done in ED. Continuous telemetry -PT, OT, Speech and vp digital marketing social media and crm consults This plan has been discussed with stroke fellow Dr. Nazario and has been communicated to ED team. Nissa Ramirez APRN-GLUE LINE OPERATOR 04/12/2023 2:57 PM Code Status: No Order DVT prophylaxis: Diet: DIET NPO WITHOUT meds I personally attended to this critically ill patient for 65 minutes including acute stroke evaluation, determining the appropriateness of administering IV tPA, treatment of mechanical thrombectomy, and discussing with the plan with the family and medical team. Associated attestation - Patricio Ling MD - 04/15/2023 6:08 PM EDT I have seen and independently examined the patient on 04/12/2023. I reviewed the laboratory and imaging data. The management plan was constructed in discussion with me. I agree with the note as written by the nurse practitioner: 83 y/o woman with h/o HTN, possible prior stroke, and CHF p/w R hand clumsiness and dysarthria. The hand clumsiness resolved with 1 hour, but the dysarthria has been persistent. MRI, CTH, and CTA on 04/11 at [facility] was all negative for acute stroke or LVO. Overnight, the patient developed left side neglect. Discussed with nursing staff at OSH and it is unclear what time this began. Pt was transferred for further workup given worsening exam. On arrival, NIH 8, CTH without large territory stroke, CTA no LVO. CTP concerning for hyperperfusion in left temporal lobe. No acute interventions due to no LVO and outside of treatment window. ASA and statin. Follow up MRI Vipin and TTE. OT/PT/WRECKER DRIVER documented in this encounter [facility] documented in this encounter [facility] Reason for Referral Specialty Diagnoses / Procedures Referred By Contac t Referred To Contact Social Work Diagnoses Seizures Ben Murphy, PUBLIC HEALTH NURSE-GLUE LINE OPERATOR [address] [place] [address] Referral ID Status Reason Start Date Expiration Date V isits Requested Visits Authorized [id number] New Request 04/14/2023 05/08/2024 1 1 Specialty Diagnoses / Procedures Referred By Contac t Referred To Contact Neurology Diagnoses Seizures Ben Mruphy, PUBLIC HEALTH NURSE-GLUE LINE OPERATOR [address] [place] [address] Referral ID Status Reason Start Date Expiration Date V isits Requested Visits Authorized [id number] New Request 04/14/2023 05/08/2024 1 1 Specialty Diagnoses / Procedures Referred By Contac t Referred To Contact Procedures ECG Nissa Ramirez, PUBLIC HEALTH NURSE-GLUE LINE OPERATOR [address] [place] [address] Referral ID Status Reason Start Date Expiration Date V isits Requested Visits Authorized [id number] New Request 04/12/2023 05/06/2024 1 1 Specialty Diagnoses / Procedures Referred By Contac t Referred To Contact [address] [place] [address] Referral ID Status Reason Start Date Expiration Date Visits Re quested Visits Authorized Specialty Diagnoses / Procedures Referred By Contac t Referred To Contact Procedures PLATELET MONITORING PER PROTOCOL Nissa Ramirez, PUBLIC HEALTH NURSE-GLUE LINE OPERATOR [address] [place] [address] Referral ID Status Reason Start Date Expiration Date V isits Requested Visits Authorized [id number] New Request 04/12/2023 05/06/2024 1 1 Specialty Diagnoses / Procedures Referred By Contac t Referred To Contact Procedures DVT/VTE RISK ASSESSMENT Nissa Ramirez, PUBLIC HEALTH NURSE-GLUE LINE OPERATOR [address] [place] [address] Referral ID Status Reason Start Date Expiration Date V isits Requested Visits Authorized [id number] New Request 04/12/2023 05/06/2024 1 1 Specialty Diagnoses / Procedures Referred By Contac t Referred To Contact Procedures ECG Elton Zuluaga MD [address] [place] [address] Referral ID Status Reason Start Date Expiration Date V isits Requested Visits Authorized [id number] Pending Review 04/12/2023 05/06/2024 1 1 Advance Directives No Advanced Directives Records FoundLatest Code Status on File Code Status Date Activated Date Inactivated Comments Full Code 04/14/2023 7:43 AM Summary Purpose Family History No Family History Records Found Additional Source Comments Reason for Visit (unrecogniz ed section and content) Referral ID Status Reason Start Date Expiration Date Visits Re quested Visits Authorized [id number] 1 1 Scheduled Active and Recently Administ ered Medications (unrecognized section and content) Continuous Medication Order 04/14/2023 04/15/2023 04/16/2023 Sodium chloride 0.9% IV solution (CANCELED) Intravenous, at 75 mL/hr, CONTINUOUS, Starting on Luann 04/13/23 at 0730, Until 04/15/23 at 0912 0335 (Paused - Provider: Shannon Walsh RN)0337 (Restarted - Provider: Shannon Walsh RN)0337 (Paused - Provider: Shannon Walsh RN)0340 (Restarted - Provider: Shannon Walsh RN)0359 (Rate/Dose Verify - Provider: Shannon Walsh RN)0408 (Paused - Provider: Kinjal Mg RN)0417 (Restarted - Provider: Kinjal Mg RN)0417 (Paused - Provider: Kinjal Mg RN)0422 (Restarted - Provider: Kinjal Mg RN)0428 (Paused - Provider: Kinjal Mg RN)0434 (Restarted - Provider: Kinjal Mg RN)0438 (Rate/Dose Verify - Provider: Kinjal Mg RN)0524 (Paused - Provider: Kinjal Mg RN)0529 (Restarted - Provider: Kinjal Mg RN)0625 (Rate/Dose Verify - Provider: Kinjal Mg RN)0640 (Paused - Provider: Kinjal Mg RN)0641 (Restarted - Provider: Kinjal Mg RN)0644 (Stopped - Provider: Kinjal Mg RN)0644 ($$New Bag$$ - Provider: Shannon Walsh RN)0750 (Paused - Provider: Kinjal Mg RN)0802 (Restarted - Provider: Kinjal Mg RN)0810 (Paused - Provider: Knijal Mg RN)0817 (Paused - Provider: Kinjal Mg RN)0824 (Restarted - Provider: Kinjal Mg RN)0845 (Rate/Dose Verify - Provider: Anitra Cook RN)1026 (Paused - Provider: Anitra Cook RN)1106 (Restarted - Provider: Anitra Cook RN)1110 (Paused - Provider: Anitra Cook RN)1115 (Restarted - Provider: Anitra Cook RN)1116 (Paused - Provider: Anitra Cook, RN)1136 (Restarted - Provider: Anitra Cook RN)1143 (Paused - Provider: Anitra Cook, RN)1146 (Restarted - Provider: Anitra Cook, RN)1147 (Paused - Provider: Anitra Cook, RN)1149 (Restarted - Provider: Anitra Cook RN)1157 (Paused - Provider: Anitra Cook RN)1200 (Restarted - Provider: Anitra Cook RN)1201 (Paused - Provider: Anitra Cook RN)1206 (Restarted - Provider: Anitra Cook RN)1212 (Paused - Provider: Anitra Cook RN)1225 (Restarted - Provider: Anitra Cook RN)1620 (Paused - Provider: Anitra Cook RN)1622 (Restarted - Provider: Anitra Cook RN)1627 (Paused - Provider: Anitra Cook RN)1631 (Restarted - Provider: Anitra Cook RN)2130 (Rate/Dose Verify - Provider: Anitra Cook RN)2206 (Rate/Dose Change - Provider: Anitra Cook RN)220 (Rate/Dose Change - Provider: Anitra Cook RN)2212 ($$New Bag$$ - Provider: Tanner Andres RN)2257 (Paused - Provider: Anitra Cook RN)2259 (Restarted - Provider: Anitra Cook RN) 0323 (Paused - Provider: Anitra Cook RN)0326 (Restarted - Provider: Anitra Cook RN)0812 (Stopped - Provider: Anitra Cook RN) PRN Medication Order 04/14/2023 04/15/2023 04/16/2023 Acetaminophen (TYLENOL) tablet 325 mg(Linked Group 3) 325 mg, Oral, EVERY 4 HOURS NEEDED, Starting on Mon04/12/23 at 1505, Until 04/16/23 at 1405, Mild Pain, Moderate Pain, Maximum dose of acetaminophen is 4000 mg from all sources in 24 hours. 1221 (See Alternative - Provider: Anitra Cook RN) Acetaminophen (TYLENOL) tablet 325 mg(Linked Group 3) 325 mg, Per NG tube, EVERY 4 HOURS NEEDED, Starting on Mon04/12/23 at 1505, Until 04/16/23 at 1405, Mild Pain, Moderate Pain, Maximum dose of acetaminophen is 4000 mg from all sources in 24 hours. 1221 (See Alternative - Provider: Anitra Cook RN) Acetaminophen (TYLENOL) tablet 650 mg(Linked Group 3) 650 mg, Oral, EVERY 4 HOURS NEEDED, Starting on Mon04/12/23 at 1505, Until 04/16/23 at 1405, Severe Pain, Oral temp > 99.5, Maximum dose of acetaminophen is 4000 mg from all sources in 24 hours. 1221 (Given - Provider: Gloria Cook RN) Acetaminophen (TYLENOL) tablet 650 mg(Linked Group 3) 650 mg, Per NG tube, EVERY 4 HOURS NEEDED, Starting on Mon04/12/23 at 1505, Until 04/16/23 at 1405, Severe Pain, Oral temp > 99.5, Maximum dose of acetaminophen is 4000 mg from all sources in 24 hours. 1221 (See Alternative - Provider: Anitra Cook RN) hydrALAZINE (APRESOLINE) injection 10 mg(Linked Group 4) 10 mg, Intravenous, EVERY 1 HOUR NEEDED, Starting on Mon04/12/23 at 1505, Until 04/16/23 at 1405, Systolic Blood Pressure greater than 220 mmHg and heart rate LESS THAN 60 beats per minute., Use as initial dose. Higher dose may be administered if lower dose was previously documented as ineffective 10 minutes after administration and did not result in adverse effects (HR>90) hydrALAZINE (APRESOLINE) injection 20 mg(Linked Group 4) 20 mg, Intravenous, EVERY 1 HOUR NEEDED, Starting on Mon04/12/23 at 1505, Until 04/16/23 at 1405, Systolic Blood Pressure greater than 220 mmHg and heart rate LESS THAN 60 beats per minute., Higher dose may be administered if lower dose was previously documented as ineffective 10 minutes after administration and did not result in adverse effects (HR>90). Decrease back to lower dose if patient has adverse effects, or no PRN used in previous 3 hours Labetalol (NORMODYNE) injection 10 mg(Linked Group 5) 10 mg, Intravenous, EVERY 1 HOUR NEEDED, Starting on Mon04/12/23 at 1505, Until 04/16/23 at 1405, Systolic Blood Pressure greater than 220 mmHg and heart rate GREATER THAN 60 beats per minute., Use as initial dose. Higher dose may be administered if lower dose was previously documented as ineffective 10 minutes after administration and did not result in adverse effects (HR<60) For vials: labetalol should be treated as a SINGLE USE VIAL. Discard remaining contents after one use. Labetalol (NORMODYNE) injection 20 mg(Linked Group 5) 20 mg, Intravenous, EVERY 1 HOUR NEEDED, Starting on Mon04/12/23 at 1505, Until Mon04/16/23 at 1405, Systolic Blood Pressure greater than 220 mmHg and heart rate GREATER THAN 60 beats per minute., Higher dose may be administered if lower dose was previously documented as ineffective 10 minutes after administration and did not result in adverse effects (HR<60). Decrease back to lower dose if patient has adverse effects, or no PRN used in previous 3 hours For vials: labetalol should be treated as a SINGLE USE VIAL. Discard remaining contents after one use. Polyethylene glycol (MIRALAX) packet 17 g(Linked Group 6) 17 g, Oral, DAILY NEEDED, Starting on Mon04/12/23 at 1505, Until Mon04/16/23 at 1405, Constipation If No Bowel Movement in 48 Hours Polyethylene glycol (MIRALAX) packet 17 g(Linked Group 6) 17 g, Per NG tube, DAILY NEEDED, Starting on Mon04/12/23 at 1505, Until Mon04/16/23 at 1405, Constipation If No Bowel Movement in 48 Hours Linked Groups Order Group 1: aspirin chewable tablet 81 mg (CANCELED)Jump to med 81 mg, Oral, DAILY, First dose on Mon04/13/23 at 0900, Until Discontinued
May begin use of chewable aspirin when patient passes swallow test.
Or aspirin suppository 300 mg (CANCELED) 300 mg, Rectal, DAILY, First dose on Mon04/13/23 at 0900, Until Discontinued
Use suppository until patient passes swallow test.
Group 2: Senna (SENOKOT) tablet 8.6 mgJump to med 8.6 mg, Oral, DAILY EVERY MORNING, First dose on Mon04/13/23 at 0900, Until Discontinued
Hold if BM in last 2 hours.
Or Senna (SENOKOT) tablet 8.6 mgJump to med 8.6 mg, Per NG tube, DAILY EVERY MORNING, First dose on Mon04/13/23 at 0900, Until Discontinued
Hold if BM in last 2 hours.
Group 3: Acetaminophen (TYLENOL) tablet 325 mgJump to med 325 mg, Oral, EVERY 4 HOURS NEEDED, Starting on Mon04/12/23 at 1505, Until 04/16/23 at 1405, Mild Pain, Moderate Pain
Maximum dose of acetaminophen is 4000 mg from all sources in 24 hours.
Or Acetaminophen (TYLENOL) tablet 325 mgJump to med 325 mg, Per NG tube, EVERY 4 HOURS NEEDED, Starting on Mon04/12/23 at 1505, Until 04/16/23 at 1405, Mild Pain, Moderate Pain
Maximum dose of acetaminophen is 4000 mg from all sources in 24 hours.
Or Acetaminophen (TYLENOL) tablet 650 mgJump to med 650 mg, Oral, EVERY 4 HOURS NEEDED, Starting on Mon04/12/23 at 1505, Until 04/16/23 at 1405, Severe Pain, Oral temp > 99.5
Maximum dose of acetaminophen is 4000 mg from all sources in 24 hours.
Or Acetaminophen (TYLENOL) tablet 650 mgJump to med 650 mg, Per NG tube, EVERY 4 HOURS NEEDED, Starting on Mon04/12/23 at 1505, Until 04/16/23 at 1405, Severe Pain, Oral temp > 99.5
Maximum dose of acetaminophen is 4000 mg from all sources in 24 hours.
Group 4: hydrALAZINE (APRESOLINE) injection 10 mgJump to med 10 mg, Intravenous, EVERY 1 HOUR NEEDED, Starting on Mon04/12/23 at 1505, Until Mon04/16/23 at 1405, Systolic Blood Pressure greater than 220 mmHg and heart rate LESS THAN 60 beats per minute.
Use as initial dose. Higher dose may be administered if lower dose was previously documented as ineffective 10 minutes after administration and did not result in adverse effects (HR>90)
Or hydrALAZINE (APRESOLINE) injection 20 mgJump to med 20 mg, Intravenous, EVERY 1 HOUR NEEDED, Starting on Mon04/12/23 at 1505, Until 04/16/23 at 1405, Systolic Blood Pressure greater than 220 mmHg and heart rate LESS THAN 60 beats per minute.
Higher dose may be administered if lower dose was previously documented as ineffective 10 minutes after administration and did not result in adverse effects (HR>90). Decrease back to lower dose if patient has adverse effects, or no PRN used in previous 3 hours
Group 5: Labetalol (NORMODYNE) injection 10 mgJump to med 10 mg, Intravenous, EVERY 1 HOUR NEEDED, Starting on Mon04/12/23 at 1505, Until 04/16/23 at 1405, Systolic Blood Pressure greater than 220 mmHg and heart rate GREATER THAN 60 beats per minute.
Use as initial dose. Higher dose may be administered if lower dose was previously documented as ineffective 10 minutes after administration and did not result in adverse effects (HR<60) For vials: labetalol should be treated as a SINGLE USE VIAL. Discard remaining contents after one use.
Or Labetalol (NORMODYNE) injection 20 mgJump to med 20 mg, Intravenous, EVERY 1 HOUR NEEDED, Starting on Mon04/12/23 at 1505, Until 04/16/23 at 1405, Systolic Blood Pressure greater than 220 mmHg and heart rate GREATER THAN 60 beats per minute.
Higher dose may be administered if lower dose was previously documented as ineffective 10 minutes after administration and did not result in adverse effects (HR<60). Decrease back to lower dose if patient has adverse effects, or no PRN used in previous 3 hours For vials: labetalol should be treated as a SINGLE USE VIAL. Discard remaining contents after one use.
Group 6: Polyethylene glycol (MIRALAX) packet 17 gJump to med 17 g, Oral, DAILY NEEDED, Starting on Mon04/12/23 at 1505, Until 04/16/23 at 1405, Constipation If No Bowel Movement in 48 Hours Or Polyethylene glycol (MIRALAX) packet 17 gJump to med 17 g, Per NG tube, DAILY NEEDED, Starting on Mon04/12/23 at 1505, Until 04/16/23 at 1405, Constipation If No Bowel Movement in 48 Hours Care Teams (unrecognized sec tion and content) INFORMATION SOURCE (unrecogn ized section and content) FOR RECORDS PERTAINING TO PATIENTS WHO ARE OR HAVE BEEN ENROLLED IN A CHEMICAL DEPENDENCY/SUBSTANCEABUSE PROGRAM, SOME INFORMATION MAY BE OMITTED. This clinical summary was aggregated from multiple sources. Caution should be exercised in using it in the provision of clinical care. This summary normalizes information from multiple sources, and as a consequence, information in this document may materially change the coding, format and clinical context of patient data. In addition, data may be omitted in some cases. CLINICAL DECISIONS SHOULD BE BASED ON THE PRIMARY CLINICAL RECORDS. [facility] [employer] [facility]. provides no warranty or guarantee of the accuracy or completeness of information in this document.
[2023-06-30 12:18] LABS: Absolute Neutrophil Count 2.8 X10^3/uL (2.0-7.7); Basophil# 0.03 X10^3/uL; Basophil% 0.6 % (0-1); Eosinophil# 0.14 X10^3/uL; Hematocrit 27.7 % (37-47); Hemoglobin 8.9 g/dL (12.0-15.0); Lymphocyte % 27.8 % (19-41); Mean Corp Hgb Conc 32.1 g/dL (32-36); Mean Corpuscular Hgb 29.4 pg (27.0-32.0); Mean Corpuscular Volume 91.4 fL (81-99); Mean Platelet Vol. 10.8 fl (6.2-12.0); Monocyte# 0.43 X10^3/uL; Monocyte% 9.2 % (0-10); NRBC Flagged by Analyzer 0 % (0-5); Neutrophil # 2.77 X10^3/uL (2.7-7.7); Neutrophil % 59.2 % (47-70); Platelet Count 180 K/mm3 (150-450); RBC Distribution Width CV 14.6 % (11.6-14.6); RBC Distribution Width SD 48.5 fl (35.1-43.9); Red Blood Count 3.03 M/mm3 (4.2-5.4); White Blood Count 4.7 K/mm3 (4.4-11.0)
[2023-06-30 12:36] LABS: Anion Gap 4 (5-15); BUN 34 mg/dL (7-18); BUN/Creat Ratio 21.1 RATIO (10-20); Calcium,Total 9.2 mg/dL (8.5-10.1); Chloride 112 mmol/L (98-107); Creatinine, Serum 1.61 mg/dL (0.55-1.02); EST Glomerular Filtration Rate 33 mL/min (>60); Est Glom Filt Rate - Afr Amer 40 mL/min (>60); Glucose 95 mg/dL (74-106); Potassium 5.2 mmol/L (3.5-5.1); Sodium Level 141 mmol/L (136-145)
== END | disposition home or self-care (01) ==
LOC: MFPLAB 10:10
PROVIDERS: PCP Family Medicine; Visit Provider Family Medicine
DX: D64.9 Anemia, unspecified (principal)
CPT/HCPCS: 36415; 80048; 85025

== ENCOUNTER → 2023-08-09 | Outpatient (CLI) | payer MEDICARE, OTHER, SELFPAY ==
--- NOTE | 2023-08-09 12:27 | ECHODONC_ITS ---
Reason For Study: TIA Procedure This was a 2D Doppler, Color Flow transthoracic echocardiogram. Myocardial strain analysis was performed in this exam to aid in the assessment of cardiac function. Exam performed in department. Left Ventricle Normal size and thickness. The left ventricular ejection fraction is 60 %. Normal diastology for age. The global longitudinal strain = -18.6 % (normal). Right Ventricle Normal right ventricle. Atria The left and right atria are normal. Bubble contrast study is negative for PFO/ASD. Mitral Valve Mild (1+) mitral valve insufficiency. Tricuspid Valve Mild tricuspid valve insufficiency. Right ventricular systolic pressure estimated to be 40 mmHg. Aortic Valve Trisinus/trileaflet aortic valve. Pulmonic Valve The pulmonic valve is not well visualized. Great Vessels Normal sized aortic root. Pericardium/Pleural No pericardial effusion. Medication 22 gauge I.V. with prn adaptor inserted into right arm. Performed a rapid injection of agitated mix of 9 cc saline and 1cc air to assess for atrial septal defect. MMode/2D Measurements & Calculations LVIDd: 4.7 cm IVSd: 1.0 cm LVOT diam: 2.0 cm LVIDs: 2.4 cm LVPWd: 0.81 cm RVDd: 3.7 cm FS: 47.6 % LVOT area: 3.2 cm2 Ao root diam: 3.6 cm LAV(MOD-bp): 49.1 ml LVAd ap4: 26.2 cm2 LAV(MOD-bp) Indexed: 26.8 ml/m2 LVLd ap4: 7.7 cm LAV(MOD-sp2): 55.2 ml EDV(MOD-sp4): 73.6 ml LAV(MOD-sp4): 44.1 ml EDV(sp4-el): 75.9 ml LVAs ap4: 14.0 cm2 LVLs ap4: 6.6 cm ESV(MOD-sp4): 25.6 ml ESV(sp4-el): 25.2 ml EF(MOD-sp4): 65.3 % EF(sp4-el): 66.8 % LVAd ap2: 27.3 cm2 SV(MOD-sp4): 48.1 ml SV(MOD-sp2): 54.4 ml LVLd ap2: 7.9 cm EDV(MOD-sp2): 76.8 ml EDV(sp2-el): 79.8 ml LVAs ap2: 13.3 cm2 LVLs ap2: 6.6 cm ESV(MOD-sp2): 22.5 ml ESV(sp2-el): 22.8 ml EF(MOD-sp2): 70.8 % SV(sp4-el): 50.7 ml LA dimension(2D): 4.2 cm LA A4 area: 17.4 cm2 RA A4 area: 11.0 cm2 TAPSE: 2.4 cm Time Measurements MV dec time: 0.19 sec Doppler Measurements & Calculations MV E max chidi: 96.9 cm/sec Lat Peak E' Chidi: 10.8 cm/sec Med Peak E' Chidi: 11.0 cm/sec MV A max chidi: 109.3 cm/sec E/E' lat: 9.0 E/E' med: 8.8 MV E/A: 0.89 Ao V2 max: 144.8 cm/sec LV V1 max: 111.6 cm/sec MV dec slope: 504.7 cm/sec2 Ao max P.4 mmHg LV V1 max P.0 mmHg Ao V2 mean: 100.5 cm/sec LV V1 mean P.1 mmHg Ao mean P.5 mmHg LV V1 mean: 83.1 cm/sec Ao V2 VTI: 33.5 cm LV V1 VTI: 27.5 cm AV (velocity ratio): 0.82 TITUS(I,D): 2.6 cm2 TITUS(V,D): 2.5 cm2 SV(LVOT): 87.8 ml PA V2 max: 101.5 cm/sec TR max chidi: 283.9 cm/sec PA max PG (full): 1.2 mmHg TR max P.2 mmHg ECHO/ONC Echo Complete Interpretation Summary The left ventricular ejection fraction is 60 %. The global longitudinal strain = -18.6 % (normal). Bubble contrast study is negative for PFO/ASD. Mild (1+) mitral valve insufficiency. Mild tricuspid valve insufficiency. Right ventricular systolic pressure estimated to be 40 mmHg. Ordering Physician: Pantera Blanton Referring Physician: Shaina Bustamante M.D. Performed By: Vashti Gallardo RDCS
== END | disposition home or self-care (01) ==
LOC: CVS 12:27
PROVIDERS: PCP Family Medicine; Referring Provider Internal Medicine Medical Oncology; Visit Provider Internal Medicine Medical Oncology
DX: G45.9 Transient cerebral ischemic attack, unspecified (principal); N18.9 Chronic kidney disease, unspecified; D63.1 Anemia in chronic kidney disease; R53.83 Other fatigue
CPT/HCPCS: 93306; 93356; A4216

== ENCOUNTER → 2023-08-21 | Outpatient (CLI) | payer MEDICARE, OTHER, SELFPAY ==
[2023-08-21 15:36] LABS: Absolute Neutrophil Count 2.8 X10^3/uL (2.0-7.7); Basophil# 0.03 X10^3/uL; Basophil% 0.5 % (0-1); Eosinophil# 0.36 X10^3/uL; Eosinophils% 6.4 % (0-5); Hematocrit 31.7 % (37-47); Mean Corp Hgb Conc 31.5 g/dL (32-36); Mean Corpuscular Volume 91.9 fL (81-99); Mean Platelet Vol. 10.9 fl (6.2-12.0); Monocyte# 0.67 X10^3/uL; Monocyte% 11.9 % (0-10); NRBC Flagged by Analyzer 0 % (0-5); Neutrophil # 2.75 X10^3/uL (2.7-7.7); Platelet Count 222 K/mm3 (150-450); RBC Distribution Width CV 12.6 % (11.6-14.6); Red Blood Count 3.45 M/mm3 (4.2-5.4); White Blood Count 5.6 K/mm3 (4.4-11.0)
[2023-08-21 16:13] LABS: Anion Gap 5 (5-15); BUN 25 mg/dL (7-18); BUN/Creat Ratio 15.3 RATIO (10-20); Calcium,Total 8.9 mg/dL (8.5-10.1); Chloride 111 mmol/L (98-107); Creatinine, Serum 1.63 mg/dL (0.55-1.02); EST Glomerular Filtration Rate 32 mL/min (>60); Est Glom Filt Rate - Afr Amer 39 mL/min (>60); Glucose 122 mg/dL (74-106); Potassium 4.6 mmol/L (3.5-5.1); Sodium Level 140 mmol/L (136-145)
--- OUTSIDE RECORDS SUMMARY | 2023-08-21 16:38 | XMS RPT_ITS | CCD ---
Author Name Unknown Address [address] [place] [address] Organization [facility] Care Team Providers Care Environmental Marketer Name Role Phone Shaina Snyder MD Primary Care Provider [phone] PATRICIO LING Admitting Unavailable PATRICIO LING Attending Unavailable SAHINA SNYDER Primary Care Unavailable SYSTEM, PROVIDER NOT [...] 97.9 [degF] Elton Zuluaga MD Work Phone: [facility] 04-16-2023 08:37-0400 Diastolic blood pressure 66 mm[Hg] Elton Zuluaga MD Work Phone: [facility] 04-16-2023 08:37-0400 Heart rate 79 /min Elton Zuluaga MD Work Phone: [facility] 04-16-2023 08:37-0400 Respiratory rate 16 /min Elton Zuluaga MD Work Phone: [facility] 04-16-2023 08:37-0400 SaO2% (BldA) [Mass fraction] 97 % Elton Zuluaga MD Work Phone: [facility] 04-16-2023 08:37-0400 Systolic blood pressure 147 mm[Hg] Elton Zuluaga MD Work Phone: [facility] 04-13-2023 10:57-0400 Body height 160 cm Elton Zuluaga MD Work Phone: [facility] 04-13-2023 10:57-0400 Body mass index (BMI) [Ratio] 33.01 kg/m2 Elton Zuluaga MD Work Phone: [facility] 04-13-2023 10:57-0400 Body weight 84.5 kg Elton Zuluaga MD Work Phone: [facility] Encounters Encounter Date Encounter Type Care Provider Facility Start: 04-12-2023 End: 04-16-2023 Evaluation and management of inpatient [facility] Facility:[facility] Start: 04-12-2023 End: 04-16-2023 Evaluation and management of inpatient Elton Zuluaga MD Work Phone: [id number] Procedures Date Procedure Procedure Detail Performing Clinician Start: 04-16-2023 Blood count platelet automated Nissa Ramirez AIR CONDITIONING SERVICE TECHNICIAN-SENIOR PRODUCT DEVELOPMENT SCIENTIST Work Phone: Start: 04-15-2023 Electrolyte panel Sussy Ramirez AIR CONDITIONING SERVICE TECHNICIAN-SENIOR PRODUCT DEVELOPMENT SCIENTIST Work Phone: Start: 04-14-2023 Creatinine other source Ben Murphy AIR CONDITIONING SERVICE TECHNICIAN-SENIOR PRODUCT DEVELOPMENT SCIENTIST Work Phone: Start: 04-14-2023 Creatinine blood Sangita Murphy AIR CONDITIONING SERVICE TECHNICIAN-SENIOR PRODUCT DEVELOPMENT SCIENTIST Work Phone: Start: 04-14-2023 GENERAL PROCEDURE Vianey Bo DO Work Phone: Start: 04-14-2023 Electrolyte panel Sussy Stafford Ashley AIR CONDITIONING SERVICE TECHNICIAN-SENIOR PRODUCT DEVELOPMENT SCIENTIST Work Phone: Start: 04-13-2023 Echo tthrc r-t 2d w/wom-mode compl spec&colr d Nissa Ramirez AIR CONDITIONING SERVICE TECHNICIAN-SENIOR PRODUCT DEVELOPMENT SCIENTIST Work Phone: Start: 04-13-2023 Mri brain brain stem w/o contrast material Nissa Ramirez AIR CONDITIONING SERVICE TECHNICIAN-SENIOR PRODUCT DEVELOPMENT SCIENTIST Work Phone: Start: 04-13-2023 Hemoglobin glycosyla los a1c Nissa Ramirez AIR CONDITIONING SERVICE TECHNICIAN-SENIOR PRODUCT DEVELOPMENT SCIENTIST Work Phone: Start: 04-13-2023 Hepatic function panel Nissa Ramirez AIR CONDITIONING SERVICE TECHNICIAN-SENIOR PRODUCT DEVELOPMENT SCIENTIST Work Phone: Start: 04-12-2023 Drug tst prsmv instr mnt chem analyzers pr date Philippe Cedillo MD Work Phone: Start: 04-12-2023 EXTRA MICRO Nissa Ramirez AIR CONDITIONING SERVICE TECHNICIAN-SENIOR PRODUCT DEVELOPMENT SCIENTIST Work Phone: Start: 04-12-2023 EXTRA TUBES Patricio velez MD Work Phone: Start: 04-12-2023 EXTRA URINE Patricio velez MD Work Phone: Start: 04-12-2023 Urinalysis microscop ic only Philippe Cedillo MD Work Phone: Start: 04-12-2023 URINALYSIS REFLEX TO CULTURE Nissa Ramirez AIR CONDITIONING SERVICE TECHNICIAN-[facility] Work Phone: Start: 04-12-2023 Urnls dip stick/tabl et rgnt auto w/o microscopy Philippe Cedillo MD Work Phone: Start: 04-12-2023 IP CONSULT TO SPEECH THERAPY Nissa Ramirez AIR CONDITIONING SERVICE TECHNICIAN-[facility] Work Phone: Start: 04-12-2023 Cerebral perfusion a nalys ct w/blood flow&volume Philippe Cedillo MD Work Phone: Start: 04-12-2023 End: 04-12-2023 Ct angiography head w/contrast/noncontrast Philippe Cedillo MD Work Phone: Start: 04-12-2023 Assay of magnesium Kleber Ramirez AIR CONDITIONING SERVICE TECHNICIAN-[facility] Work Phone: Start: 04-12-2023 CBC AND [...] Author Start: 04-15-2026 Tetanus vaccination TETANUS [facility] Start: 04-15-2024 Potassium [Moles/vol ume] in Serum or Plasma POTASSIUM [facility] Start: 03-03-2023 Influenza vaccination INFLUENZA VACC INE (#1) [facility] Start: 08-19-2022 COVID-19 VACCINE (3 - Mixed Product series) COVID-19 VACCINE (3 - Mixed Product series) [facility] Start: 04-13-2016 Pneumococcal vaccination PNEUM OCOCCAL VACCINE SERIES (2 - PPSV23 or PCV20) [facility] Start: 1992 Zoster vaccine hzv l ruben for subcutaneous use ZOSTER (SHINGLES) VACCINE (1 of 2) [facility] Start: 1987 Screening for malign ant neoplasm of colon COLORECTAL CANCER SCREENING DISCUSSION [facility] Start: 1982 Screening for malign ant neoplasm of breast MAMMOGRAM SCREENING DISCUSSION [facility] Start: 1963 Screening for malign ant neoplasm of cervix CERVICAL CANCER SCREENING DISCUSSION [facility] Start: 1942 Screening for osteoporosis DEXA SCAN DISCUSSION [facility] End: 04-12-2023 GOLD TOP TUBE [facility] Immunizations Immunization Date Immunization Notes Care Provider Fa yvette 04-18-2022 influenza virus vaccine, unspecified formulation Elton Zuluaga MD Work Phone: [facility] Payers Date Payer Category Payer Private Health Insurance [id number] 2022 Unknown GENERIC PAYOR ME DICARE SUPPLEMENT [id number] 2022-Present [phone] [address] [address] [place] [address] [id number] 2017 Medicare MEDICARE MEDICAR E A AND B [id number] 2017-Present [address] [place] [address] [id number] 2017 Medicare [id number] 1940 Unknown [id number] Social History Date Type Detail Facility Start: 12-20-2017 Tobacco smoking stat us NHIS Never smoked tobacco [facility] Start: 12-20-2017 Tobacco use and exposure Smokeless tobacco non-user [facility] Start: 12-22-2018 History of Social function [facility] Start: 12-22-2018 Tobacco use panel [facility] Start: 1940 Sex Assigned At Not on file O [facility] Start: 11-22-2017 Gender identity Identifies as female gender (finding) [facility] Clinical Notes 04-12-2023 to 04-16-2023 Nursing Notes - Juliana Grossman RN - 04/16/2023 11:02 AM EDTNursing Notes - Juliana Grossman RN - 04/16/2023 11:02 AM EDTPlan of Care - Juliana Grossman RN - 04/16/2023 9:58 AM EDTDischarge Instructions Note Date & Type Note Facility 04-16-2023 Nurse Note AVS and WALLACE faxed to , and report called. [facility] 04-16-2023 Miscellaneous Notes AVS and WALLACE faxed [...] ADL participation. Outcome: Ongoing On admission to [facility], from ED a dual RN initial assessment of skin condition was performed by Jarred Barragan RN and Leelee Schaefer RN. Skin Assessment: Skin not within defined limits. - Wound(s) identified: Yes - Photo taken and uploaded into notes in IHIS: Yes Sarkis Score: 13 LDA Added:Yes Jarred Barragan RN documented in this encounter [facility] 04-16-2023 Plan of care note Problem: [...] for ADL participation. Outcome: Adequate for Discharge [facility] 04-15-2023 History of Present illness Narrative Final Discharge Planning and Transportation Final Discharge Planning Discharge Disposition: Home with Home Health Services at Discharge: Physical Therapy, Occupational Therapy Community Agency Name(s) For Handoff: [facility] Phone For Handoff: Fax For Handoff: Plan Plan: Patient will discharge Home with Home Health provided by [facility]. Patient/Family In Agreement With Plan: yes Transportation Transport Request Mode of Transfer: Private Vehicle Leelee NEWTON RN [facility] Weekend Clinical Care Clinician Available on secure chat. NEUROVASCULAR STROKE SERVICE Daily Progress Note IDENTIFYING INFORMATION Shakila Perez MR# [id number] 04/15/2023 HISTORY OF PRESENT ILLNESS Shakila Perez is a 83 y.o. female with PMH significant for HTN, possible prior stroke, and CHF who presented to OSH on 04/11 for R hand clumsiness and dysarthria. The hand clumsiness resolved with 1 hour, but the dysarthria has been persistent. MRI, CTH, and CTA on 04/11 at [facility] was all negative for acute stroke [...] will likely be discharged to home with [facility] Dexter Daigle, PATRICK-SENIOR PRODUCT DEVELOPMENT SCIENTIST 04/15/2023 11:23 AM VITAL SIGNS Temp: [97.4 [...] MRI, CTH, and CTA on 04/11 at [facility] was all negative for acute stroke [...] start home meds. Discussed with brother and [id number] at bedside. Home Health referral uploaded to [employer]. No accepting Agencies. CM extended search location. Will place in handoff for weekend CM to follow up ANAT Ansari, AUTO SERVICE INSTRUCTOR Care ClinicianHealthcare Translator info for weekend CM and SW staff (8:00am - 4:30pm): [facility]: CCM: [phone] / Shrub Grower: [phone] Ly: CCM: [phone] / Shrub Grower: [phone] Jan: CCM : [phone] / Shrub Grower: [phone] Ross: CCM: [phone] / Shrub Grower: [phone] MICU/NCCU: CCM: [phone] / Shrub Grower: [phone] Acute Physical Therapy Treatment Prior to Admission [facility] score(s): PRIOR LEVEL AM-PAC Mobility Raw Score: [...] duration on feet Mobility Assessment/Intervention: Rolling/Turning Mobility Harrison Level: Rolling/Turning: independent Bed Features/Set-up: Rolling/Turning: Flat Supine to Sit Mobility Harrison Level: Supine->Sit: independent Bed Features/Set-up: Supine->Sit: Flat Sit to Supine Mobility Harrison Level: Sit->Supine: independent Bed Features/Set-up: Sit->Supine: Flat Transfer Assessment/Intervention: Sit to Stand Transfer Harrison Level: Sit->Stand: independent Skilled Intervention/Details: Sit->Stand: EOB x1, recliner x1, toilet with out grab bar Stand to Sit Transfer Harrison Level: Stand->Sit: independent Skilled Intervention/Details: Stand->Sit: EOB x1, recliner x1, toilet x1 Gait/Functional Mobility Assessment/Intervention: Gait Assessment Harrison Level: Gait: supervision (progresses to independent) Ambulation Distance (Feet): 350 (+ 2x10) Skilled Intervention/Details - Gait: Pt able to stop, turn around, look behind her R/L, picking table worker object from floor with L then R hand, increase and decrease speed with some difficulty but no instability. Challenged x50' with increased single limb support phase duration with mild instability but self corrected. She stops for lateral head turns but able to maintain fwd gait looking up and down Stairs Assessment/Intervention: Stairs Assessment Harrison Level: Stair Negotiation: independent Assistive Device: Stair [...] and improve stability 2x10 Outcome Score(s): CURRENT [facility] Basic Mobility Inpatient Short Form Turning over in bed: 4 - No Assistance Sitting/standing from chair: 4 - No Assistance Moving from lying on back to sittin - No Assistance Moving to and from bed to chair: 4 - No Assistance Walk in hospital room: 4 - No Assistance Climbing 3-5 steps with a railin - No Assistance CURRENT [facility] Mobility Raw Score: 24 CURRENT [facility] Mobility Functional Limitation/Modifier: 0.00% Currently Impaired in [...] conservation Transfer Assessment/Intervention: Sit to Stand Transfer Harrison Level: Sit->Stand: supervision Assistive Device: Sit->Stand: armed chair Skilled Rationale: Verbal cues Skilled Intervention/Details: Sit->Stand: x4 from recliner. Stand to Sit Transfer Harrison Level: Stand->Sit: supervision Assistive Device: Stand->Sit: armed chair Skilled Rationale: Verbal cues Functional Mobility: Functional Mobility Harrison Level: Functional Mobility/Gait: stand-by assist Functional Mobility Distance: Distance needed for common household mobility Ambulation Distance (Feet): 170 Functional Mobility Deficits: Activity tolerance, Follow safety/precautions, Balance Functional Mobility Skilled Rationale: Verbal cues, Cues for increased safety, Facilitate positioning Outcome Score(s): CURRENT [facility] Daily Activity Inpatient Short Form Putting on/Taking Off Lower Body Clothin - A Little Assistance Bathin - A Little Assistance Toiletin - A Little Assistance Putting on/Taking Off Upper Body Clothin - No Assistance Groomin - No Assistance Eatin - No Assistance CURRENT [facility] Activity Raw Score: 21 CURRENT [facility] Activity Functional Limitation/Modifier: 32.79% Currently Impaired in [...] Progress Note IDENTIFYING INFORMATION Shakila Perez MR# [id number] 04/14/2023 HISTORY OF PRESENT ILLNESS Shakila Perez is a 83 y.o. female with PMH significant for HTN, possible prior stroke, and CHF who presented to OSH on 04/11 for R hand clumsiness and dysarthria. The hand clumsiness resolved with 1 hour, but the dysarthria has been persistent. MRI, CTH, and CTA on 04/11 at [facility] was all negative for acute stroke [...] will likely be discharged to home with [facility] Ben Murphy APRN-SENIOR PRODUCT DEVELOPMENT SCIENTIST 04/14/2023 1:19 PM VITAL SIGNS Temp: [97.7 [...] MRI, CTH, and CTA on 04/11 at [facility] was all negative for acute stroke [...] on CTP and EEG, start on Keppra. OT/PT/SCHOOL COUNSELLOR Discharge Planning Patient Assessment Admission Assessment Patient [...] consults?: Yes Select consult type: PT, OT, SCHOOL COUNSELLOR CM to recommend therapy or other consults? : No Medication Management Does the patient have prescription insurance coverage? : Yes Is the patient on Anticoagulation? : No [id number] [place] [address] - [phone] [facility] [address] Sanitation Truck Cleaner Does the patient or inbound call center representative express financial concerns? : No Employed?: Retired Coping/Stress Concerns about patient s coping and stress?: No Concerns about patient s caregiver s coping and stress?: Unable to Assess Values and Beliefs Cultural or mosque practices that may impact discharge planning and/or medical care?: No (Restorationist) Initial Discharge Planning Anticipated discharge disposition: Home [...] if she reconsiders and we can obtain [facility] services for discharge. Patient states she will have transportation Home at discharge. Anticipated discharge level of care: Home Internal Consultations: PT/OT/SCHOOL COUNSELLOR Case Management Plan :Interventions and Strategies Will continue to follow with medical team to monitor hospital course to identify any post acute services and medical follow up. No additional needs identified at this time. Leelee NEWTON RN [facility] Weekend Clinical Care Clinician Available on secure chat. Acute Physical Therapy [...] brother is able to provide, otherwise recommend jail facility) Mobility equipment available at home: straight [...] noted Mobility Assessment: Supine to Sit Mobility Harrison Level: Supine->Sit: supervision Bed Features/Set-up: Supine->Sit: Head [...] WW Transfer Assessment: Sit to Stand Transfer Harrison Level: Sit->Stand: stand-by assist Assistive Device: Sit->Stand: gait belt, 2 wheeled walker Skilled Rationale: Positioning, Sequencing, Hand placement, Verbal cues Skilled Intervention/Details: Sit->Stand: Multiple sit to stand transfers with stand by assist, cues for hand placement with WW Gait/Functional Mobility: Gait Assessment Harrison Level: Gait: (contact guard/stand by) Assistive Device: [...] and no LOB Stairs: Outcome Score(s): CURRENT [facility] Basic Mobility Inpatient Short Form Turning over [...] a railin - A Little Assistance CURRENT [facility] Mobility Raw Score: 19 CURRENT [facility] Mobility Functional Limitation/Modifier: 41.77% Currently Impaired in [...] Progress Note IDENTIFYING INFORMATION Shakila Perez MR# [id number] 04/13/2023 HISTORY OF PRESENT ILLNESS Shakila Perez is a 83 y.o. female with PMH significant for HTN, possible prior stroke, and CHF who presented to OSH on 04/11 for R hand clumsiness and dysarthria. The hand clumsiness resolved with 1 hour, but the dysarthria has been persistent. MRI, CTH, and CTA on 04/11 at [facility] was all negative for acute stroke [...] MRI, CTH, and CTA on 04/11 at [facility] was all negative for acute stroke [...] and statin. Follow up EEG and TTE. OT/PT/SCHOOL COUNSELLOR Acute Occupational Therapy Evaluation Prior to Admission AM-PAC Score: PRIOR LEVEL AM-PAC Activity Raw Score: 24 PRIOR LEVEL AM-PAC Mobility Raw Score: 24 Current AM-PAC score(s): CURRENT AM-PAC Mobility Raw Score: 19 CURRENT AM-PAC Activity Raw Score: 20 Based on the above AM-PAC score(s) and OT clinical judgment, discharge destination recommendation is: Retirement Facility (Anticipate progression to home with family [...] fall IADL History IADLs: independent Primary Language: Albanian Home Management Skills: independent Medication Management: independent [...] knees) Mobility Assessment: Supine to Sit Mobility Harrison Level: Supine->Sit: supervision Physical Assist: Supine->Sit: (1 person) Bed Features/Set-up: Supine->Sit: Head of bed elevated Skilled Rationale: Verbal cues, Technique of activity, Hand placement Skilled Intervention/Details: Supine->Sit: Increased time due to multiple lines Transfer Assessment: Sit to Stand Transfer Harrison Level: Sit->Stand: stand-by assist Physical Assist: Sit->Stand: (1 person) Assistive Device: Sit->Stand: gait belt, 2 wheeled walker Skilled Rationale: Positioning, Hand placement, Verbal cues, Sequencing, Full extension to upright positioning/posture Skilled Intervention/Details: Sit->Stand: Cues for hands placement Stand to Sit Transfer Harrison Level: Stand->Sit: stand-by assist Physical Assist: Stand->Sit: (1 person) Assistive Device: Stand->Sit: gait belt, 2 wheeled walker, armed chair Skilled Rationale: Tactile cues, Verbal cues, Technique of activity, Controlled descent for sitting Skilled Intervention/Details: Stand->Sit: cues for proximity to chair Toilet Transfer Harrison Level: Toilet: stand-by assist Physical Assist: Toilet: (1 person) Assistive Device: Toilet: gait belt, grab bars Skilled Rationale: Verbal cues, Hand placement, Controlled descent for sitting, Technique of activity Functional Mobility: Functional Mobility Harrison Level: Functional Mobility/Gait: contact guard assist Physical [...] consult for swallow evaluation. However, patient passed [place] Swallow Screening by nursing. Swallow eval by SCHOOL COUNSELLOR will not be completed at this time unless this service notified of change in status or re-consult for swallow eval placed. Attempt to see pt for speech/language/cognitive evaluation; however, upon chart review, patient's MRI Brain is negative for acute intracranial findings; now has EEG pending. Given MRI was negative acute findings, SCHOOL COUNSELLOR evaluation not indicated at this time. Please re-consult as needed. No charge. TAHIRA Seo, CCC-SCHOOL COUNSELLOR, CBIS License # [id number] Pager #: [phone] documented in this encounter [facility] 04-14-2023 Plan of care note Problem: PT [...] mobility and safety. Outcome: Met This Shift [facility] 04-14-2023 Procedure note Associated Ord er(s): GENERAL [...] or seizures. Sharita Bo DO [facility] Procedure note Associated Ord er(s): [...] DO Epilepsy Attending documented in this encounter [facility] 04-14-2023 Plan of care note Problem: OT [...] UE ROM/coordination/strength for ADL participation. Outcome: Ongoing [facility] 04-14-2023 Hospital Discharge instructions Ben Murphy APRN-SENIOR PRODUCT DEVELOPMENT SCIENTIST - 04/14/2023 6:30 AM EDT Please take [...] may call your neurovascular doctors office at [phone], if you have questions between 8:30 am and 4:30 pm. - For off hours or the weekend you may call the office or the hospital cd reactor operator at and ask for the stroke resident concrete block plant supervisor to be paged. - If you have any questions or needs, please call Shahnaz Sneed RN, stroke leadership program associate at [phone] Mon-Fri from 7-3 ? Any questions concerning your discharge instructions please call Case Management Office [phone] Patient Stroke Resources: [facility] Stroke Support The [facility] Stroke Support Group is for stroke survivors, friends, and family members. Meets every Monday from 12:00PM to 1:00PM at [facility] [address] [place] [address] Eunice Velasco, at [phone]. If you are outside of the [facility], contact The [place] [employer] at www.strokeassociation.org or 6-051-3-stroke, or for supports groups in your area. Also refer to the Stroke Education booklet you received as part of your stroke education while you were a patient for additional resources Additional Contacts: Evening and Weekend Contacts If you have questions or concerns during evening, weekend, or holiday hours, please call: -[facility] cd reactor operator at [phone]. -[facility] cd reactor operator at [phone] Ask the cd reactor operator to page the on-call doctor for [...] Other reference numbers: [facility] Intake Office at 166-594-5712; [employer] at 757-467-4394; or Suicide Prevention Hotline at 883-037-1856. *Helpful phone numbers: Free Crisis Hotline: 0-113-884-OGVD ( ) Suicide Hotline: 583.952.1289 Seniors Suicide Hotline: 486.672.2765 [facility]: 809.496.9381 [facility] [place]: [phone] (free counseling) [facility] Access Hotline: 752-214-SZNH (065-119-0603) 24-hour crisis text hotline: Text the word 4hope to 923-516 for crisis support. Texting this number is [...] you may qualify for Medicaid/public assistance: The [facility] Department of Job and Family Services can now process worley (TANF), food (SNAP) and Medicaid Applications over the phone. Please call [phone] ([phone]) and apply over the phone or apply online at www.benefits.[place].gov. Monday-Monday 8am-12pm noon. Medication Assistance Programs [employer] members can buy 100+ common prescriptions for FREE, $3 or $6. Annual membership is $36 for individuals and $72 for families (up to 6 people, including pets). Sign up online or enroll at your nearest pharmacy! -[employer], web site can provide a significant number [...] take each medicine. Include all prescription and yamd-dcw-dzxxwne medicines, vitamins, and supplements. Keep this list [...] plan your refills so that you can picking table worker all your medicines at the same time. [...] -Fever or chills documented in this encounter [facility] 04-14-2023 Progress note Formatting of t his note might be different from the original. I certify that this patient requires inpatient services at this time. I anticipate the expected length of stay will include at least two midnights. Inpatient services are due to the following medical concerns stroke. Plans for post hospitalization care will be discharge to [facility]. [facility] 04-13-2023 Plan of care note Problem: Patient [...] (reference Stroke (Ischemic) (Adult) CPG). Outcome: Ongoing [facility] 04-13-2023 Plan of care note Problem: PT [...] improve functional mobility and safety. Outcome: Ongoing [facility] 04-13-2023 Note Acute Coronary Syndr ome (ACS): Initial Evaluation and Management: [email or web address] [email or web address] [facility] 04-13-2023 Plan of care note Problem: OT [...] UE ROM/coordination/strength for ADL participation. Outcome: Ongoing [facility] 04-12-2023 Nurse Note On admission to [facility], from ED a dual RN initial assessment of skin condition was performed by Jarred Barragan RN and Leelee Schaefer RN. Skin Assessment: Skin not within defined limits. - Wound(s) identified: Yes - Photo taken and uploaded into notes in IHIS: Yes Sarkis Score: 13 LDA Added:Yes Jarred Barragan RN [facility] 04-12-2023 Note IMPRESSION: 1. Motion degraded examination [...] Syndr ome (ACS): Initial Evaluation and Management: [email or web address] [email or web address] [email or web address] [facility] 04-12-2023 Physician Emergency department Note EMERGENCY DEPARTMENT [...] performed during the hospital encounter of 04/12/23 [facility] 7 - ED Result Value Ref [...] 0.94 (L) 1.16 - 3.51 K/uL Abs [place]aton Auto 0.50 0.22 - 0.87 K/uL Abs Eos Auto <0.04 0.00 - 0.42 K/uL Abs Baso Auto <0.04 0.00 - 0.15 K/uL URINALYSIS REFLEX TO CULTURE PERFORMABLE Result Value Ref Range Color Yellow Yellow Appearance Urine Clear Clear Glucose Urine Negative Negative Ketones Urine Negative Negative Specific [place] Urine 1.015 1.001 - 1.035 Blood Urine [...] PCU Service. Philippe Cedillo MD Resident 04/12/23 [id number] [facility] Work Phone: 04-12-2023 Emergency department Note [...] performed during the hospital encounter of 04/12/23 [facility] 7 - ED Result Value Ref [...] 0.94 (L) 1.16 - 3.51 K/uL Abs [place] Auto 0.50 0.22 - 0.87 K/uL Abs Eos Auto <0.04 0.00 - 0.42 K/uL Abs Baso Auto <0.04 0.00 - 0.15 K/uL URINALYSIS REFLEX TO CULTURE PERFORMABLE Result Value Ref Range Color Yellow Yellow Appearance Urine Clear Clear Glucose Urine Negative Negative Ket[place] Urine Negative Negative Specific [place] Urine 1.015 1.001 - 1.035 Blood Urine [...] further questions. Name: Tae Page RPH Phone: [phone] Date/Time: 04/12/2023 1:41 PM Pt arrives to ED as stroke alert. Pt was inpatient at [facility] had right sided deficits yesterday. Today pt began having left sided neglect and confusion. Per EMS, pt was trying to talk to people who were not there. Pt able to move extremities but does have left sided sensory deficits and left sided neglect. ED resident and neuro PREFLIGHT INSPECTOR bedside evaluating pt. Pt had Negative MRI at [place] yesterday. LKW currently is 1000 this morning. Neuro PREFLIGHT INSPECTOR calling [facility] to clarify LKW Bed: E033 Expected date: 04/12/23 Expected time: 12:00 AM Means of arrival: Private Ambulance Comments: documented in this encounter [facility] 04-12-2023 Emergency department Note Department of Pharmacy [...] further questions. Name: Tae Page RPH Phone: [phone] Date/Time: 04/12/2023 1:41 PM [facility] 04-12-2023 Emergency department Note Pt arrives to ED as stroke alert. Pt was inpatient at [facility] had right sided deficits yesterday. Today pt began having left sided neglect and confusion. Per EMS, pt was trying to talk to people who were not there. Pt able to move extremities but does have left sided sensory deficits and left sided neglect. ED resident and neuro PREFLIGHT INSPECTOR bedside evaluating pt. Pt had Negative MRI at [facility] yesterday. LKW currently is 1000 this morning. Neuro PREFLIGHT INSPECTOR calling [facility] to clarify LKW [facility] 04-12-2023 Emergency department Note Bed: E033 Expected date: 04/12/23 Expected time: 12:00 AM Means of arrival: Private Ambulance Comments: [facility] 04-12-2023 History and physical note Neurovascular Evaluation [...] MRI, CTH, and CTA on 04/11 at [facility] was all negative for acute stroke [...] and tone. No pronator drift. Reflexes: Coordination: Usexde-vw-npfy jdxyetInwe-lo-znca intact . Rapid alternating movements are normal. Sensation: LUE and LLE sensation absent to soft touch. Can identify pain only. Profound Left frank-neglect, does not recognize own left hand Gait: deferred Laboratory Results Diagnostics/Procedures: Labs-CBC WBC/Hgb/Hct/Plts: 6.56/10.2/30.8/199 (04/12 1356) Labs-Chem 7([facility]) Bun/Creat/Cl/CO2/Glucose: 30/1.95/100/22/111 (04/12 1356) Na/K+/Phos/Mg/Ca: 128/5.0/--/--/-- (04/12 [...] ED. Continuous telemetry -PT, OT, Speech and administrator social welfare consults This plan has been discussed with [...] MRI, CTH, and CTA on 04/11 at [facility] was all negative for acute stroke [...] statin. Follow up MRI Vipin and TTE. OT/PT/SCHOOL COUNSELLOR [facility] 04-12-2023 History and physical note Neurovascular [...] MRI, CTH, and CTA on 04/11 at [facility] was all negative for acute stroke [...] and tone. No pronator drift. Reflexes: Coordination: Ozzqgs-yg-reqj itakfjWmfs-gl-tbqq intact . Rapid alternating movements are normal. Sensation: LUE and LLE sensation absent to soft touch. Can identify pain only. Profound Left frank-neglect, does not recognize own left hand Gait: deferred Laboratory Results Diagnostics/Procedures: Labs-CBC WBC/Hgb/Hct/Plts: 6.56/10.2/30.8/199 (04/12 1356) Labs-Chem 7([facility]) Bun/Creat/Cl/CO2/Glucose: 30/1.95/100/22/111 (04/12 1356) Na/K+/Phos/Mg/Ca: 128/5.0/--/--/-- (04/12 [...] ED. Continuous telemetry -PT, OT, Speech and administrator social welfare consults This plan has been discussed with stroke fellow Dr. Nazario and has been communicated to ED team. Nissa Ramirez APRN-SENIOR PRODUCT DEVELOPMENT SCIENTIST 04/12/2023 2:57 PM Code Status: No Order [...] MRI, CTH, and CTA on 04/11 at [facility] was all negative for acute stroke [...] statin. Follow up MRI Vipin and TTE. OT/PT/SCHOOL COUNSELLOR documented in this encounter [facility] documented in this encounter [facility] Reason for Referral Specialty Diagnoses / Procedures Referred By Contac t Referred To Contact Social Work Diagnoses Seizures Ben Murphy, AIR CONDITIONING SERVICE TECHNICIAN-SENIOR PRODUCT DEVELOPMENT SCIENTIST [address] [place] [address] Referral ID Status Reason Start Date Expiration Date V isits Requested Visits Authorized [id number] New Request 04/14/2023 05/08/2024 1 1 Specialty Diagnoses / Procedures Referred By Contac t Referred To Contact Neurology Diagnoses Seizures Ben Murphy, AIR CONDITIONING SERVICE TECHNICIAN-SENIOR PRODUCT DEVELOPMENT SCIENTIST [address] [place] [address] Referral ID Status Reason Start Date Expiration Date V isits Requested Visits Authorized [id number] New Request 04/14/2023 05/08/2024 1 1 Specialty Diagnoses / Procedures Referred By Contac t Referred To Contact Procedures ECG Nissa Ramirez, AIR CONDITIONING SERVICE TECHNICIAN-SENIOR PRODUCT DEVELOPMENT SCIENTIST [address] [place] [address] Referral ID Status Reason Start Date Expiration Date V isits Requested Visits Authorized [id number] New Request 04/12/2023 05/06/2024 1 1 Specialty Diagnoses / Procedures Referred By Contac t Referred To Contact [address] [place] [address] Referral ID Status Reason Start Date Expiration Date Visits Re quested Visits Authorized Specialty Diagnoses / Procedures Referred By Contac t Referred To Contact Procedures PLATELET MONITORING PER PROTOCOL Nissa Ramirez, AIR CONDITIONING SERVICE TECHNICIAN-SENIOR PRODUCT DEVELOPMENT SCIENTIST [address] [place] [address] Referral ID Status Reason Start Date Expiration Date V isits Requested Visits Authorized [id number] New Request 04/12/2023 05/06/2024 1 1 Specialty Diagnoses / Procedures Referred By Contac t Referred To Contact Procedures DVT/VTE RISK ASSESSMENT Nissa Ramirez, AIR CONDITIONING SERVICE TECHNICIAN-SENIOR PRODUCT DEVELOPMENT SCIENTIST [address] [place] [address] Referral ID Status Reason Start Date Expiration Date V isits Requested Visits Authorized [id number] New Request 04/12/2023 05/06/2024 1 1 Specialty Diagnoses / Procedures Referred By Contac t Referred To Contact Procedures ECG Elton Zuluaga MD [address] [place] [address] Referral ID Status Reason Start Date Expiration Date V isits Requested Visits Authorized [id number] Pending Review 04/12/2023 05/06/2024 1 1 Advance Directives No Advanced Directives Records FoundLatest Code Status on File Code Status Date Activated Date Inactivated Comments Full Code 04/14/2023 7:43 AM Summary Purpose Family History No Family History Records Found Additional Source Comments Reason for Visit (unrecogniz ed section and content) Referral ID Status Reason Start Date Expiration Date Visits Re quested Visits Authorized [id number] 1 1 Scheduled Active and Recently Administ [...] Kinjal Mg RN)0417 (Paused - Provider: Kinjal gM RN)0422 (Restarted - Provider: Kinjal Mg RN)0428 (Paused - Provider: Kinjal Mg RN)0434 (Restarted - Provider: Kinjal Mg RN)0438 (Rate/Dose Verify - Provider: iKnjal Mg RN)0524 (Paused - Provider: Kinjal Mg RN)0529 (Restarted - Provider: Kinjal Mg RN)0625 (Rate/Dose Verify - Provider: Kinjal Mg RN)0640 (Paused - Provider: Kinjal Mg RN)0641 (Restarted - Provider: Kinjal Mg RN)0644 (Stopped - Provider: Kinjal Mg RN)0644 ($$New Bag$$ - Provider: Shannon Walsh RN)0750 (Paused - Provider: Kinjal Mg RN)0802 (Restarted - Provider: Kinjal Mg RN)0810 (Paused - Provider: Kinjal Mg RN)0817 (Paused - Provider: Kinjal Mg [...] Provider: Anitra Cook RN)1627 (Paused - Provider: Antira Cook RN)1631 (Restarted - Provider: Anitra Cook [...] BE BASED ON THE PRIMARY CLINICAL RECORDS. [facility] [employer] [facility]. provides no warranty or guarantee of the accuracy or completeness of information in this document.
== END | disposition home or self-care (01) ==
LOC: MTLAB 14:00
PROVIDERS: PCP Family Medicine; Referring Provider Family Medicine; Visit Provider Family Medicine
DX: D64.9 Anemia, unspecified (principal)
CPT/HCPCS: 36415; 80048; 85025

== ENCOUNTER → 2023-09-06 | Outpatient (CLI) | payer MEDICARE, OTHER, SELFPAY ==
[2023-09-06 13:37] LABS: Protein, Urine (Random) 18.7 mg/dL (<11.9); Protein:Creat Ratio 121 mg/g CRE (0-200)
== END | disposition home or self-care (01) ==
LOC: POLAB3 12:59
PROVIDERS: PCP Family Medicine; Visit Provider Internal Medicine Nephrology
DX: N18.32 Chronic kidney disease, stage 3b (principal); R31.29 Other microscopic hematuria
CPT/HCPCS: 82570; 84156; 87086

== ENCOUNTER → 2023-09-08 | Outpatient (CLI) | payer MEDICARE, OTHER, SELFPAY ==
--- NOTE | 2023-09-08 15:11 | US_ITS ---
STUDY: RENAL ULTRASOUND - COMPLETE REASON FOR EXAM: Female, 83 years old. CHRONIC KIDNEY DISEASE STAGE 3B TECHNIQUE: Ultrasound evaluation of the kidneys was performed with real-time and static rodriguez-scale imaging. COMPARISON: None. FINDINGS: RIGHT KIDNEY: Normal location of the right kidney, which is normal in size. The right kidney measures 9.1 x 4.1 x 3.6 cm. There is a normal cortex of the right kidney. The renal cortex measures 1. cm. There is no right renal mass or cyst. There are no right renal calculi. There is no right hydronephrosis. DISTAL RIGHT URETER: There is non-visualization of the distal right ureter. There is no demonstrated right ureterovesical junction calculus. There is a visualized right ureteral jet. LEFT KIDNEY: Normal location of the left kidney, which is normal in size. The left kidney measures 9.0 x 4.5 x 4.6 cm. There is a normal cortex of the left kidney. The renal cortex measures 1. cm. There is no left renal mass or cyst. There are no left renal calculi. There is no left hydronephrosis. DISTAL LEFT URETER: There is non-visualization of the distal left ureter. There is no demonstrated left ureterovesical junction calculus. There is a visualized left ureteral jet. BLADDER: The underdistended urinary bladder has a volume of 82.8 ml. No post void bladder.. There is a normal 3 mm wall thickness of the distended urinary bladder. There is no demonstrated mass within the urinary bladder. There are no demonstrated bladder calculi. US/Kidney and Bladder IMPRESSION: Normal ultrasound of the kidneys and urinary bladder. COMMENT: Incidentally visualized is calcified uterine fibroid with strong distal acoustic shadowing. Electronically Signed: Hakeem Dunn MD at 14:37 EDT ,
== END | disposition home or self-care (01) ==
LOC: US 15:09
PROVIDERS: PCP Family Medicine; Referring Provider Internal Medicine Nephrology; Visit Provider Internal Medicine Nephrology
DX: N18.32 Chronic kidney disease, stage 3b (principal)
CPT/HCPCS: 76770

== ENCOUNTER → 2023-10-18 | Outpatient (CLI) | payer MEDICARE, OTHER, SELFPAY ==
[2023-10-18 12:25] LABS: Hematocrit 33.3 % (37-47); Hemoglobin 10.5 g/dL (12.0-15.0); Mean Corp Hgb Conc 31.5 g/dL (32-36); Mean Corpuscular Hgb 27.9 pg (27.0-32.0); Mean Corpuscular Volume 88.6 fL (81-99); Mean Platelet Vol. 11.4 fl (6.2-12.0); Platelet Count 194 K/mm3 (150-450); RBC Distribution Width CV 12.5 % (11.6-14.6); RBC Distribution Width SD 40.8 fl (35.1-43.9); Red Blood Count 3.76 M/mm3 (4.2-5.4); White Blood Count 5.3 K/mm3 (4.4-11.0)
[2023-10-18 12:58] LABS: Albumin, Serum 3.7 g/dL (3.2-5.0); BUN 29 mg/dL (7-18); BUN/Creat Ratio 17.4 RATIO (10-20); Calcium,Total 9.1 mg/dL (8.5-10.1); Chloride 108 mmol/L (98-107); Creatinine, Serum 1.67 mg/dL (0.55-1.02); EST Glomerular Filtration Rate 31 mL/min (>60); Est Glom Filt Rate - Afr Amer 38 mL/min (>60); Glucose 107 mg/dL (74-106); PTHIN 90.9 pg/mL (18.4-80.1); Phosphorus 3.7 mg/dL (2.5-4.9); Sodium Level 138 mmol/L (136-145)
== END | disposition home or self-care (01) ==
PROVIDERS: PCP Family Medicine; Referring Provider Internal Medicine Nephrology; Visit Provider Internal Medicine Nephrology
DX: D50.9 Iron deficiency anemia, unspecified (principal); N18.32 Chronic kidney disease, stage 3b
CPT/HCPCS: 36415; 80069; 83970; 85027

== ENCOUNTER → 2023-11-20 | Outpatient (CLI) | payer MEDICARE, OTHER, SELFPAY ==
[2023-11-20 15:41] LABS: Protein, Urine (Random) 11.3 mg/dL (<11.9); Protein:Creat Ratio 77 mg/g CRE (0-200)
[2023-11-20 16:00] LABS: Cholesterol 119 mg/dL (200); High Density Lipoprotein 50 mg/dL; Triglycerides 179 mg/dL; Very Low Density Lipoprotein 36 mg/dL (5-40)
== END | disposition home or self-care (01) ==
LOC: MFPLAB 14:00
PROVIDERS: PCP Family Medicine; Visit Provider Family Medicine
DX: E78.5 Hyperlipidemia, unspecified (principal); I10 Essential (primary) hypertension
CPT/HCPCS: 36415; 80061; 82570; 84156

== ENCOUNTER → 2024-06-03 | Outpatient (CLI) | payer MEDICARE, OTHER, SELFPAY ==
--- NOTE | 2024-06-03 13:34 | BI_ITS ---
MAMMOGRAPHY - BILATERAL SCREENING REASON FOR EXAM: Female, 84 years old. Routine annual screening examination. PERTINENT HISTORY: Non-contributory. TECHNIQUE: Digital bilateral breast manisha (3D mammographic acquisition) in the CC and MLO projections. 2-D mediolateral oblique (MLO) and craniocaudad (CC) views of both breasts were obtained. CAD: Full Field Digital Mammography with Computer Added Detection was performed. COMPARISON: Comparison is made with prior study June 01, 2023 and May 31, 2022. FINDINGS: Breast Composition: The breasts are heterogeneously dense, which may obscure small masses. There are no dominant masses or suspicious calcifications. Stable 1 cm well-defined nodule in the medial aspect of the right breast on the craniocaudad view. No other significant abnormalities are identified. There has been no significant change since the prior study. BI/SCRN MAMM (CAD)W/MANISHA BILAT IMPRESSION: Stable bilateral screening mammogram. Yearly follow-up mammogram recommended. (A) ASSESSMENT CATEGORY: BIRADS Category 2: Benign. A letter regarding these results will be sent to the patient by the facility within 30 days. Approximately 10% of breast cancers are not detected by mammography. A normal mammogram should not delay biopsy of a clinically suspicious abnormality. [id number] Electronically Signed: Cortes Crenshaw MD at 14:32 EST ,
[2024-06-03 14:09] LABS: Bacteria 0 SEEN /hpf (None Seen); Mucous, Urine 0 SEEN /hpf (<or=2+); Red Blood Cells-Urine 0 SEEN /hpf (0-5)
[2024-06-03 14:13] LABS: Color, Urine Yellow (Yellow); Glucose, Dipstick Normal (Normal); Ketone-Dipstick Negative (Negative); Leukocyte Esterase-Dipstick 500 /ul (Negative); Nitrite-Dipstick Negative (Negative); Occult Blood-Urine Negative /ul (Negative); Protein-Dipstick 15 mg/dl (Negative); Specific Gravity, Urine 1.015 (1.002-1.030); Urine Bilirubin Dipstick Negative (Negative); Urine Clarity Sl. Cloudy (Clear); Urine Urobilinogen Normal (Normal)
[2024-06-03 14:19] LABS: Squamous Epithelial Cells - UA 0-5 SEEN /hpf (5-10); White Blood Cells 0-5 SEEN /hpf (0-5)
[2024-06-03 14:25] LABS: Albumin, Serum 3.9 g/dL (3.2-5.0); BUN 31 mg/dL (7-18); BUN/Creat Ratio 16.4 RATIO (10-20); Calcium,Total 9.1 mg/dL (8.5-10.1); Chloride 108 mmol/L (98-107); Creatinine, Serum 1.89 mg/dL (0.55-1.02); EST Glomerular Filtration Rate 27 mL/min (>60); Est Glom Filt Rate - Afr Amer 33 mL/min (>60); Glucose 126 mg/dL (74-106); Phosphorus 3.1 mg/dL (2.5-4.9); Potassium 4.8 mmol/L (3.5-5.1); Sodium Level 140 mmol/L (136-145)
[2024-06-03 14:34] LABS: Microalbumin,Random Urine 28.5 mg/L (NO RANGE EST.); Microalbumin:Creatinine Ratio 16.2 mg/g CRE (<30 mg/g CRE)
== END | disposition home or self-care (01) ==
PROVIDERS: Internal Medicine Nephrology; PCP Family Medicine; Referring Provider Family Medicine; Visit Provider Family Medicine
DX: Z12.31 Encounter for screening mammogram for malignant neoplasm of breast (principal); E11.22 Type 2 diabetes mellitus with diabetic chronic kidney disease; N18.32 Chronic kidney disease, stage 3b; R31.21 Asymptomatic microscopic hematuria
CPT/HCPCS: 36415; 77063; 77067; 80069; 81001; 82043; 82570

== ENCOUNTER → 2024-08-13 | Outpatient (CLI) | payer MEDICARE, OTHER, SELFPAY ==
[2024-08-13 11:43] LABS: Anion Gap 6 (5-15); BUN 25 mg/dL (7-18); BUN/Creat Ratio 15.4 RATIO (10-20); Calcium,Total 9.1 mg/dL (8.5-10.1); Chloride 107 mmol/L (98-107); Creatinine, Serum 1.62 mg/dL (0.55-1.02); EST Glomerular Filtration Rate 32 mL/min (>60); Est Glom Filt Rate - Afr Amer 39 mL/min (>60); Glucose 140 mg/dL (74-106); Potassium 4.2 mmol/L (3.5-5.1); Sodium Level 139 mmol/L (136-145)
== END | disposition home or self-care (01) ==
LOC: PAVLAB 11:00
PROVIDERS: PCP Family Medicine; Referring Provider Internal Medicine Nephrology; Visit Provider Internal Medicine Nephrology
DX: N17.9 Acute kidney failure, unspecified (principal)
CPT/HCPCS: 36415; 80048

== ENCOUNTER → 2024-11-12 | Outpatient (CLI) | payer MEDICARE, OTHER, SELFPAY | END | disposition home or self-care (01) | LOC: LABSPEC 10:46 | PROVIDERS: PCP Family Medicine | DX: N30.00 Acute cystitis without hematuria (principal); K21.9 Gastro-esophageal reflux disease without esophagitis | CPT/HCPCS: 87086; 87088 ==

== ENCOUNTER → 2024-12-31 | Outpatient (CLI) | payer MEDICARE, OTHER, SELFPAY ==
[2024-12-31 13:27] LABS: Albumin, Serum 4.1 g/dL (3.4-4.8); Anion Gap 11 (5-15); BUN 34 mg/dL (4-19); BUN/Creat Ratio 18.7 RATIO (10-20); Calcium,Total 9.6 mg/dL (7.6-11.0); Carbon Dioxide 22.1 mmol/L (21.0-32.0); Chloride 106 mmol/L (98-108); Glucose 102 mg/dL (70-99); Potassium 5.5 mmol/L (3.3-5.1)
== END | disposition home or self-care (01) ==
LOC: MTLAB 10:25
PROVIDERS: PCP Family Medicine; Referring Provider Internal Medicine Nephrology; Visit Provider Internal Medicine Nephrology
DX: N18.32 Chronic kidney disease, stage 3b (principal)
CPT/HCPCS: 36415; 80069

== ENCOUNTER → 2025-01-06 | Outpatient (CLI) | payer MEDICARE, OTHER, SELFPAY ==
[2025-01-06 16:03] LABS: Potassium 5.5 mmol/L (3.3-5.1)
== END | disposition home or self-care (01) ==
PROVIDERS: PCP Family Medicine; Referring Provider Internal Medicine Nephrology; Visit Provider Internal Medicine Nephrology
DX: E87.5 Hyperkalemia (principal)
CPT/HCPCS: 36415; 84132

== ENCOUNTER → 2025-04-16 | Outpatient (CLI) | payer MEDICARE, OTHER, SELFPAY ==
[2025-04-16 12:56] LABS: Albumin, Serum 4.2 g/dL (3.4-4.8); Anion Gap 10 (5-15); BUN 26 mg/dL (4-19); BUN/Creat Ratio 17.1 RATIO (10-20); Calcium,Total 9.4 mg/dL (7.6-11.0); Carbon Dioxide 24.5 mmol/L (21.0-32.0); Chloride 104 mmol/L (98-108); Glucose 96 mg/dL (70-99); Potassium 5.0 mmol/L (3.3-5.1)
== END | disposition home or self-care (01) ==
LOC: MTLAB 09:38
PROVIDERS: PCP Family Medicine; Referring Provider Internal Medicine Nephrology; Visit Provider Internal Medicine Nephrology
DX: N17.9 Acute kidney failure, unspecified (principal)
CPT/HCPCS: 36415; 80069

== ENCOUNTER → 2025-06-30 | Outpatient (CLI) | payer MEDICARE, OTHER, SELFPAY ==
--- NOTE | 2025-06-30 14:56 | BI_ITS ---
EXAM: SCRN MAMM (CAD)W/MANISHA BILAT DATE: 06/30/2025 CLINICAL HISTORY: F, Age 85 y/o , SCREENING TECHNIQUE: Procedure Code: [id number] Modality: MG Procedure: SCRN MAMM (CAD)W/MANISHA BILAT COMPARISON: Prior exam(s) were compared FINDINGS: TISSUE DENSITY: The breasts are heterogeneously dense, which may obscure small masses. Bilateral Breast Mammographic Findings: No significant masses, calcifications or other abnormalities are identified. BI/SCRN MAMM (CAD)W/MANISHA BILAT IMPRESSION: No mammographic evidence of malignancy. OVERALL FINAL ASSESSMENT BI-RADS 1: NEGATIVE. RECOMMENDATION: Routine annual follow-up in 1 Year Additional Recommendation none A letter with findings and recommendations will be mailed to the patient. Reading Location: [id number]
== END | disposition home or self-care (01) ==
LOC: OPBI 14:55
PROVIDERS: PCP Family Medicine
DX: Z12.31 Encounter for screening mammogram for malignant neoplasm of breast (principal)
CPT/HCPCS: 77063; 77067